=== PATIENT | male | born 1955 | race African-American/Black ===

== ENCOUNTER 2017-05-07 10:41 | Inpatient (IN) | payer OTHER ==
[~2017-05-07] VITALS: Ht 170.2 cm; Wt 72.4 kg
[2017-05-07] VITALS (9 sets, daily range): BP systolic 169–194; BP diastolic 84–91; PULSE 72–85; RESP 16–18; TEMP 97.9–98.1; O2SAT 93–97
[~2017-05-07 10:41] MED LIST: CLON.2 PO; NORV2.5T11 PO
[2017-05-07] MEDS ORDERED: SODIUM CHLOR 0.9% 1000 ML INJ 1,000 ML IV SCH (11:25)
[2017-05-07] MEDS ORDERED: MORPHINE SULFATE 4 MG/ML INJ IV PUSH ONE ×2 (11:30→14:15)
[2017-05-07] MEDS ORDERED: ONDANSETRON HCL 4 MG/2 ML VIAL IVP ONE (11:30)
[2017-05-07 11:45] LABS: AUTOMATED NEUTROPHIL # 4.7 TH/MM3 (1.8-7.7); BASOPHIL # 0.1 TH/MM3 (0-0.2); BASOPHIL % 1.3 % (0.0-2.0); EOSINOPHIL # 0.2 TH/MM3 (0-0.4); EOSINOPHIL % 1.9 % (0.0-4.0); HEMATOCRIT 28.7 % (39.0-51.0); HEMO FLAGS DIFF FINAL; LYMPH % 24.6 % (9.0-44.0); LYMPHOCYTE # 2.1 TH/MM3 (1.0-4.8); MEAN CELL VOLUME 81.8 FL (80.0-100.0); MEAN CORPUSCULAR HEMOGLOBIN 26.1 PG (27.0-34.0); MEAN CORPUSCULAR HGB CONC 31.9 % (32.0-36.0); MONO % 16.2 % (0.0-8.0); PLATELET COUNT 280 TH/MM3 (150-450); RED BLOOD COUNT 3.51 MIL/MM3 (4.50-5.90); RED CELL DISTRIBUTION WIDTH 18.2 % (11.6-17.2); WHITE BLOOD COUNT 8.4 TH/MM3 (4.0-11.0)
--- NOTE | 2017-05-07 11:55 | PD ---
HPI Chief Complaint: Abdominal Pain Time Seen by Provider: 11:51 Travel History International Travel<30 days: No Contact w/Intl Traveler<30days: No Traveled to known affect area: No History of Present Illness HPI 61-year-old male that presents to the ED for evaluation of epigastric abdominal pain. Per patient she's had this since this morning around 4:00. Per patient the pain is severe. The patient is 8 out of 10. Per patient radiates to the back. Per patient she's had this before when he had pancreatitis in the past. He states that his gallbladder was removed. He denies any chest pain or shortness of breath. He states that he started out 3 times. No blood. No bowel movement issues. No urinary issues. No trauma. He denies eating anything that could've caused this. Allergies Dilaudid and Reglan. No rashes. No fevers chills or sweats. PFSH Past Medical History Hx Anticoagulant Therapy: Yes Heart Rhythm Problems: Yes Cardiac Catheterization: Yes (2014- ) Cardiovascular Problems: Yes High Cholesterol: Yes Coronary Artery Disease: Yes Diabetes: No Diminished Hearing: No Gastrointestinal Disorders: Yes Hypertension: Yes Respiratory: Yes (COPD) Immunizations Current: No Myocardial Infarction: Yes Pancreatitis: Yes Past Surgical History Abdominal Surgery: Yes (esophageal banding) Appendectomy: Yes Cholecystectomy: Yes Coronary Artery Bypass Graft: Yes (2007 5 vessels ) Other Surgery: No Social History Alcohol Use: Yes (hx of abuse, last drink "15 days ago") Tobacco Use: Yes (/2 PPD) Substance Use: Yes (hx cocaine use, last used a month ago) Allergies-Medications (Allergen,Severity, Reaction): Coded Allergies: Dilaudid (Verified Allergy, Intermediate, Hives, 08/22/15) Reglan (Verified Allergy, Intermediate, Hives, 08/22/15) Reported Meds & Prescriptions Reported Meds & Active Scripts Active Reported Norvasc (Amlodipine Besylate) 2.5 Mg Tab 2.5 Mg PO DAILY Catapres 0.2 mg (Clonidine HCl) 0.2 Mg Tab 1 Tab PO BID Review of Systems Except as stated in HPI: all other systems reviewed are Neg Physical Exam Narrative GENERAL: SKIN: Warm and dry. HEAD: Atraumatic. Normocephalic. EYES: Pupils equal and round. No scleral icterus. No injection or drainage. ENT: No nasal bleeding or discharge. Mucous membranes pink and moist. Tongue is midline. No uvula deviation. NECK: Trachea midline. No JVD. CARDIOVASCULAR: Regular rate and rhythm. No murmurs, S3, S4. RESPIRATORY: No accessory muscle use. Clear to auscultation. Breath sounds equal bilaterally. GASTROINTESTINAL: Abdomen soft, very tender to touch in the epigastric area., nondistended. Hepatic and splenic margins not palpable. MUSCULOSKELETAL: Extremities without clubbing, cyanosis, or edema. No obvious deformities. Full range of motion of the upper and lower extremities bilaterally. 2+ pulses bilaterally. NEUROLOGICAL: Awake and alert. No obvious cranial nerve deficits. Motor grossly within normal limits. Five out of 5 muscle strength in the arms and legs. Normal speech. PSYCHIATRIC: Appropriate mood and affect; insight and judgment normal. Data Data Last Documented VS Vital Signs Date Time Temp Pulse Resp B/P Pulse Ox O2 Delivery O2 Flow Rate FiO2 05/07/17 14:22 84 18 169/90 97 Room Air 05/07/17 10:42 98.0 Orders Complete Blood Count With Diff (05/07/17 11:25) Comprehensive Metabolic Panel (05/07/17 11:25) Prothrombin Time / Inr (Pt) (05/07/17 11:25) Act Partial Throm Time (Ptt) (05/07/17 11:25) Lipase (05/07/17 11:25) Urinalysis - C+S If Indicated (05/07/17 11:25) Magnesium (Mg) (05/07/17 11:25) Iv Access Insert/Monitor (05/07/17 11:25) Ecg Monitoring (05/07/17 11:25) Oximetry (05/07/17 11:25) Lactic Acid (05/07/17 11:25) Morphine Inj (Morphine Inj) (05/07/17 11:30) Ondansetron Inj (Zofran Inj) (05/07/17 11:30) Sodium Chlor 0.9% 1000 Ml Inj (Ns 1000 M (05/07/17 11:25) Electrocardiogram (05/07/17 11:55) Troponin I (05/07/17 11:55) Chest, Single Ap (05/07/17 11:55) Ct Abd/Pel W Iv Contrast(Rout) (05/07/17 ) Iohexol 350 Inj (Omnipaque 350 Inj) (05/07/17 13:42) Morphine Inj (Morphine Inj) (05/07/17 14:15) Admit Order (Ed Use Only) (05/07/17 14:46) Labs Laboratory Tests Test 05/07/17 05/07/17 11:32 11:45 White Blood Count 8.4 TH/MM3 Red Blood Count 3.51 MIL/MM3 Hemoglobin 9.2 GM/DL Hematocrit 28.7 % Mean Corpuscular Volume 81.8 FL Mean Corpuscular Hemoglobin 26.1 PG Mean Corpuscular Hemoglobin 31.9 % Concent Red Cell Distribution Width 18.2 % Platelet Count 280 TH/MM3 Mean Platelet Volume 9.6 FL Neutrophils (%) (Auto) 56.0 % Lymphocytes (%) (Auto) 24.6 % Monocytes (%) (Auto) 16.2 % Eosinophils (%) (Auto) 1.9 % Basophils (%) (Auto) 1.3 % Neutrophils # (Auto) 4.7 TH/MM3 Lymphocytes # (Auto) 2.1 TH/MM3 Monocytes # (Auto) 1.3 TH/MM3 Eosinophils # (Auto) 0.2 TH/MM3 Basophils # (Auto) 0.1 TH/MM3 CBC Comment DIFF FINAL Differential Comment Prothrombin Time 11.0 SEC Prothromb Time International 1.0 RATIO Ratio Activated Partial 22.2 SEC Thromboplast Time Urine Color YELLOW Urine Turbidity CLEAR Urine pH 5.5 Urine Specific [place] 1.013 Urine Protein TRACE mg/dL Urine Glucose (UA) NEG mg/dL Urine Ketones NEG mg/dL Urine Occult Blood NEG Urine Nitrite NEG Urine Bilirubin NEG Urine Urobilinogen LESS THAN 2.0 MG/DL Urine Leukocyte Esterase NEG Urine RBC LESS THAN 1 /hpf Urine WBC 1 /hpf Urine Mucus FEW /lpf Microscopic Urinalysis Comment CULT NOT INDICATED Sodium Level 140 MEQ/L Potassium Level 4.2 MEQ/L Chloride Level 110 MEQ/L Carbon Dioxide Level 21.5 MEQ/L Anion Gap 9 MEQ/L Blood Urea Nitrogen 6 MG/DL Creatinine 1.01 MG/DL Estimat Glomerular Filtration 91 ML/MIN Rate Random Glucose 83 MG/DL Calcium Level 8.5 MG/DL Magnesium Level 1.6 MG/DL Total Bilirubin 0.3 MG/DL Aspartate Amino Transf 93 U/L (AST/SGOT) Alanine Aminotransferase 72 U/L (ALT/SGPT) Alkaline Phosphatase 137 U/L Troponin I LESS THAN 0.02 NG/ML Total Protein 7.5 GM/DL Albumin 2.9 GM/DL Lipase 26 U/L Lactic Acid Level 1.3 mmol/L MDM Medical Decision Making Medical Screen Exam Complete: Yes Emergency Medical Condition: Yes Medical Record Reviewed: Yes Interpretation(s) CBC & BMP Diagram 05/07/17 11:32 LFTS slightly elevated AST at 90 Lipase low UA negative coags WNL EKG shows sinus rhythm with no sign of acute ischemia or read by me and attending. troponin negative Last Impressions Abdomen/Pelvis CT 05/07/17 0000 Signed Impressions: Service Date/Time: Sunday, May 07, 2017 13:41 - CONCLUSION: 1. Interval development of mild congestive failure. 2. Interval development of trace ascites with marked bowel wall thickening second portion the duodenum. 3. Chronic pancreatitis is evident. Acute pancreatitis cannot be excluded. 4. Moderate vascular calcifications are evident. 1. Carlos Kat MD FACR Differential Diagnosis Hepatitis versus pancreatitis versus gastritis versus gastroenteritis versus obstruction versus less likely coronary artery disease Narrative Course 61-year-old male that presents to the ED for evaluation of epigastric abdominal pain. Patient was properly examined and was found to have signs and symptoms more consistent with gastric pain and cardiac. Patient does have a history of cardiac disease and cannot completely rule out cardiac disease. Will do EKG and his troponin for this. We'll also do blood work and imaging for possible abdominal etiology. Patient was given IV pain medications and fluids. Labs and imaging showed what appears to be chronic on acute pancreatitis versus acute pancreatitis. Patient's lipase is actually low not high but he complains of the same pain. Patient does have ascites and CHF. Patient still complains of pain and cannot keep anything down.. My attending Dr. Resendez evaluated the patient with me and recommends admission as he cannot keep anything down even after medications given. PO challenge failed. HEPAS was paged. Dr. Lin agrees to admission for intractable abdominal pain and nausea. Procedures EKG Prior to Arrival: No Diagnosis Primary Impression: Intractable abdominal pain Additional Impression: Intractable vomiting with nausea Qualified Code: R11.2 - Intractable vomiting with nausea, unspecified vomiting type Admitting Information Admitting Physician Requests: Observation Patient Instructions: General Instructions, Narcotic given in the ED Rony Flynn May 07, 2017 11:54
[2017-05-07 12:13] LABS: BLOOD, URINE NEG (NEG); COMMENT (UR) CULT NOT INDICATED; CULTURE IF INDICATED CULT NOT INDICATED; GLUCOSE,URINE NEG (NEG); KETONE, URINE NEG (NEG); MUCUS URINE FEW /lpf (OCC); NITRITE,URINE NEG (NEG); PH, URINE 5.5 (5.0-8.5); URINE COLOR YELLOW (YELLW/STRAW)
[2017-05-07 12:17] LABS: APTT (PATIENT) 22.2 SEC (24.3-30.1)
[2017-05-07 12:21] LABS: ALKALINE PHOSPHATASE 137 U/L (45-117); TOTAL BILIRUBIN ADULT 0.3 MG/DL (0.2-1.0)
[2017-05-07 12:44] LABS: ALT (GPT) 72 U/L (12-78); ANION GAP 9 MEQ/L (5-15); BICARBONATE 21.5 MEQ/L (21.0-32.0); BLOOD UREA NITROGEN 6 MG/DL (7-18); CHLORIDE 110 MEQ/L (98-107); GLOMERULAR FILTRATION RATE 91 ML/MIN (>89); SODIUM (NA) 140 MEQ/L (136-145)
[2017-05-07 12:46] LABS: AST (GOT) 93 U/L (15-37); MAGNESIUM 1.6 MG/DL (1.5-2.5); POTASSIUM 4.2 MEQ/L (3.5-5.1)
--- NOTE | 2017-05-07 13:37 | RADRPT ---
EXAM DATE/TIME: 05/07/2017 12:04 [facility] COMPARISON: CHEST SINGLE AP, July 28, 2015, 14:55. INDICATIONS : Chest pain. MEDICAL HISTORY : Hypertension. Chronic obstructive pulmonary disease. Congestive heart failure. SURGICAL HISTORY : CABG. Appendectomy. Cholecystectomy. Esophageal banding ENCOUNTER: Initial ACUITY: 3 days PAIN SCORE: 4/10 LOCATION: Left Chest FINDINGS: The patient is status post sternotomy. The heart size upper limits of normal. The lungs demonstrate mild prominence of the interstitium diffusely. A focal consolidation is not clearly seen. No effus ion is seen. CONCLUSION: Prominence in the interstitium throughout which may represent some diffuse processes such as pulmonar y venous hypertension or mild underlying interstitial disease. This finding does appear new when com pared to the most recent prior chest from 07/28/2015. Nabeel Liang MD on May 07, 2017 at 13:26 Board Certified Radiologist. This report was verified electronically.
[2017-05-07] MEDS ORDERED: IOHEXOL 350 MG/ML 10 ML VIAL (for RAD DIAG) IV ONE (13:42)
--- NOTE | 2017-05-07 14:05 | RADRPT ---
EXAM DATE/TIME: 05/07/2017 13:41 [facility] COMPARISON: CT ABDOMEN & PELVIS W CONTRAST, July 28, 2015, 16:30. INDICATIONS : Abdomen pain with nausea and vomiting. IV CONTRAST: 95 cc Omnipaque 350 (iohexol) IV ORAL CONTRAST: No oral contrast ingested. RADIATION DOSE: 4.26 CTDIvol (mGy) MEDICAL HISTORY : Myocardial infarction. Cardiovascular disease Hypertension.pancreatitis SURGICAL HISTORY : CABG ENCOUNTER: Initial ACUITY: 1 day PAIN SCALE: 3/10 LOCATION: upper quadrant radiating to his back. TECHNIQUE: Volumetric scanning of the abdomen and pelvis was performed. Using automated exposure control and adjustment of the mA and/or kV according to patient size, radiation dose was kept as low as reasonably achievable to obtain optimal diagnostic quality images. FINDINGS: There is compensated cardiomegaly mild congestive failure and small bilateral pleural effusions. The liver is free of focal defects. Trace ascites is evident. There is bowel wall thickening around the second portion of the duodenum. The pancreatic duct is dilated suggesting chronic pancreatitis. Acute pancreatitis cannot be excluded. The adrenals and kidneys are unremarkable. Moderate stool is seen throughout the colon. There is no free air. In the pelvis prostate is prominent. There is no significant ascites. Moderate vascular calcifications are evident. Review of bone windows reveals degenerative changes in the lumbar spine. CONCLUSION: 1. Interval development of mild congestive failure. 2. Interval development of trace ascites with marked bowel wall thickening second portion the duodenu m. 3. Chronic pancreatitis is evident. Acute pancreatitis cannot be excluded. 4. Moderate vascular calcifications are evident. 1. Carlos Kat MD FACR on May 07, 2017 at 13:59 Board Certified Radiologist. This report was verified electronically.
[2017-05-07] MEDS ORDERED: NALOXONE HCL 0.4 MG/ML AMP IV PRN (15:00)
[2017-05-07] MEDS ORDERED: MAGNESIUM HYDROXIDE SUSP 30 ML CUP PO PRN (15:00)
[2017-05-07] MEDS ORDERED: SODIUM CHLORIDE 0.9% FLUSH 10 ML FLUSH IV FLUSH PRN (15:00)
[2017-05-07] MEDS ORDERED: MORPHINE SULFATE 4 MG/ML INJ IV PRN (15:00)
[2017-05-07] MEDS ORDERED: ONDANSETRON HCL 4 MG/2 ML VIAL IVP PRN (15:00)
[2017-05-07] MEDS ORDERED: LACTULOSE SYRUP 20 GM/30 ML CUP PO PRN (15:00)
[2017-05-07] MEDS ORDERED: ACETAMINOPHEN 325 MG TAB PO PRN (15:00)
[2017-05-07] MEDS: SODIUM CHLOR 0.9% 1000 ML INJ 1,000 ML IV SCH ×2 (15:17→18:11)
--- NOTE | 2017-05-07 16:00 | HHI.HP ---
[facility] Ad[facility] Diagnosis intractable abdominal pain with vomiting Diagnoses: Chief Complaint: Abdominal pain Travel History International Travel<30 Days: No Contact w/Intl Traveler <30 Da: No Traveled to Known Affected Are: No History of Present Illness This is a 61-year-old male with a history of alcohol pancreatitis, esophageal varices, CAD status post 5 vessel CABG, hyperlipidemia, congestive heart failure , hypertension, COPD and gout. He presents to the ED for evaluation of epigastric abdominal pain. 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 He states that his gallbladder was removed. He denies any chest pain, shortness of breath, fever, chills, cough, UTI symptoms, constipation and diarrhea. He also vomited 3 times prior to admission. No hematemesis. He received morphine 4 mg IV 2 doses and still complains of significant pain scale of 7 out of 10. He has been advised hospitalization for intractable pain. Patient reports of recent bout of gout and took naproxen about 2 weeks ago. He also had a follow-up EGD about a month ago when he had hematemesis. He was told there was no varices. All other systems reviewed negative Review of Systems Except as stated in HPI: all other systems reviewed are Neg Past Family Social History Past Medical History As previously mentioned Past Surgical History As previously mentioned. 6 cardiac catheterization in 2015 showed patent grafts. Esophageal banding, appendectomy, cholecystectomy Reported Medications Lisinopril, Coreg, hydralazine, folic acid, vitamin B-1, aspirin and naproxen Allergies: Coded Allergies: Dilaudid (Verified Allergy, Intermediate, Hives, 08/22/15) Reglan (Verified Allergy, Intermediate, Hives, 08/22/15) Family History Lung cancer, CVA Social History Quit drinking 15 days ago. Has cut back on his smoking down to half a pack per day. Last cocaine use a month ago Physical Exam Vital Signs Vital Signs Date Time Temp Pulse Resp B/P Pulse Ox O2 Delivery O2 Flow Rate FiO2 05/07/17 14:56 96 21 05/07/17 14:22 84 18 169/90 97 Room Air 05/07/17 12:14 85 18 174/84 95 Room Air 05/07/17 12:13 18 95 Room Air 05/07/17 11:11 18 05/07/17 10:42 98.0 76 16 178/91 97 Physical Exam GENERAL: This is a well-nourished, well-developed patient, in no apparent distress. SKIN: No rashes, ecchymoses or lesions. Cool and dry. HEAD: Atraumatic. Normocephalic. No temporal or scalp tenderness. EYES: Pupils equal round and reactive. Extraocular motions intact. No scleral icterus. No injection or drainage. ENT: Nose without bleeding, purulent drainage or septal hematoma. Throat without erythema, tonsillar hypertrophy or exudate. Uvula midline. Airway patent. NECK: Trachea midline. No JVD or lymphadenopathy. Supple, nontender, no meningeal signs. CARDIOVASCULAR: Regular rate and rhythm without murmurs, gallops, or rubs. RESPIRATORY: Clear to auscultation. Breath sounds equal bilaterally. No wheezes , rales, or rhonchi. GASTROINTESTINAL: Abdomen soft, tender epigastric area, nondistended. No guarding. MUSCULOSKELETAL: Extremities without clubbing, cyanosis, or edema. No joint tenderness, effusion, or edema noted. No calf tenderness. Negative Homans sign bilaterally. NEUROLOGICAL: Awake and alert. Cranial nerves II through XII intact. Motor and sensory grossly within normal limits. Five out of 5 muscle strength in all muscle groups. Normal speech. Laboratory Laboratory Tests Test 05/07/17 05/07/17 11:32 11:45 White Blood Count 8.4 Red Blood Count 3.51 Hemoglobin 9.2 Hematocrit 28.7 Mean Corpuscular Volume 81.8 Mean Corpuscular Hemoglobin 26.1 Mean Corpuscular Hemoglobin 31.9 Concent Red Cell Distribution Width 18.2 Platelet Count 280 Mean Platelet Volume 9.6 Neutrophils (%) (Auto) 56.0 Lymphocytes (%) (Auto) 24.6 Monocytes (%) (Auto) 16.2 Eosinophils (%) (Auto) 1.9 Basophils (%) (Auto) 1.3 Neutrophils # (Auto) 4.7 Lymphocytes # (Auto) 2.1 Monocytes # (Auto) 1.3 Eosinophils # (Auto) 0.2 Basophils # (Auto) 0.1 CBC Comment DIFF FINAL Differential Comment Prothrombin Time 11.0 Prothromb Time International 1.0 Ratio Activated Partial 22.2 Thromboplast Time Urine Color YELLOW Urine Turbidity CLEAR Urine pH 5.5 Urine Specific [place] 1.013 Urine Protein TRACE Urine Glucose (UA) NEG Urine Ketones NEG Urine Occult Blood NEG Urine Nitrite NEG Urine Bilirubin NEG Urine Urobilinogen LESS THAN 2.0 Urine Leukocyte Esterase NEG Urine RBC LESS THAN 1 Urine WBC 1 Urine Mucus FEW Microscopic Urinalysis Comment CULT NOT INDICATED Sodium Level 140 Potassium Level 4.2 Chloride Level 110 Carbon Dioxide Level 21.5 Anion Gap 9 Blood Urea Nitrogen 6 Creatinine 1.01 Estimat Glomerular Filtration 91 Rate Random Glucose 83 Calcium Level 8.5 Magnesium Level 1.6 Total Bilirubin 0.3 Aspartate Amino Transf 93 (AST/SGOT) Alanine Aminotransferase 72 (ALT/SGPT) Alkaline Phosphatase 137 Troponin I LESS THAN 0.02 Total Protein 7.5 Albumin 2.9 Lipase 26 Lactic Acid Level 1.3 Result Diagram: 05/07/17 1132 05/07/17 1132 Imaging EKG tracing interpreted by me with sinus rhythm. LVH by voltage criteria Last 24 hours Impressions Abdomen/Pelvis CT 05/07/17 0000 Signed Impressions: Service Date/Time: Sunday, May 07, 2017 13:41 - CONCLUSION: 1. Interval development of mild congestive failure. 2. Interval development of trace ascites with marked bowel wall thickening second portion the duodenum. 3. Chronic pancreatitis is evident. Acute pancreatitis cannot be excluded. 4. Moderate vascular calcifications are evident. 1. Carlos Kat MD FACR Assessment and Plan Problem List: (1) Intractable abdominal pain ICD Code: R10.9 Status: Acute Assessment and Plan This is a 61-year-old male who presents to the ED for evaluation of epigastric abdominal pain. 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 He states that his gallbladder was removed. He denies any chest pain, shortness of breath, fever, chills, cough, UTI symptoms, constipation and diarrhea. He also vomited 3 times prior to admission. No hematemesis. He received morphine 4 mg IV 2 doses and still complains of significant pain scale of 7 out of 10. Patient reports of recent bout of gout and took naproxen about 2 weeks ago. He also had a follow-up EGD about a month ago when he had hematemesis. He was told there was no varices. Intractable abdominal pain with nausea and vomiting. CT shows trace ascites with marked bowel wall thickening second portion the duodenum, chronic pancreatitis, acute pancreatitis cannot be excluded and vascular calcifications are evident. Lipase within normal limits. This could be due to tinnitus versus possible pancreatitis. Patient will be hospitalized for further evaluation and treatment. Start clear liquid diet, gentle IV hydration, pain management with IV morphine and GI prophylaxis with PPI. Hold aspirin and NSAIDs for now. Obtain records from [place] regarding recent EGD. CHF on imaging study. Patient denies shortness of breath with no clinical findings consistent with heart failure. He does have history of heart failure. Monitor for fluid overload while on IV hydration Uncontrolled hypertension. Restart home medications with as needed Vasotec and by mouth clonidine. Chronic anemia. Hemoglobin slightly lower than previous. No gross bleeding. Repeat CBC in the morning. Chronic elevated AST with history of alcohol use. Monitor Chronic medical conditions of esophageal varices, CAD status post 5 vessel CABG , hyperlipidemia, COPD and gout. Continue outpatient medications as appropriate when confirmed. DVT prophylaxis with SCD and early ambulation. Pharmacological prophylaxis if stable hemoglobin Carter Lin MD May 07, 2017 16:00
[2017-05-07] MEDS: PANTOPRAZOLE SODIUM 40 MG VIAL IV PUSH SCH (18:01)
[2017-05-07] MEDS: MORPHINE SULFATE 4 MG/ML INJ IV PRN ×2 (18:10→21:21)
[2017-05-07] MEDS: ENALAPRILAT 1.25 MG/ML VIAL IV PRN (20:33)
[2017-05-07] MEDS: DOCUSATE SODIUM 50 MG/SENNA 8.6 MG TAB PO SCH (20:33)
[2017-05-07] MEDS: SODIUM CHLORIDE 0.9% FLUSH 10 ML FLUSH IV FLUSH SCH (20:33)
[2017-05-08] VITALS (10 sets, daily range): BP systolic 153–198; BP diastolic 74–95; PULSE 62–74; RESP 16–22; TEMP 97.8–99.1; O2SAT 88–94
[2017-05-08] MEDS: MORPHINE SULFATE 4 MG/ML INJ IV PRN ×4 (02:25→21:08)
[2017-05-08] MEDS: ENALAPRILAT 1.25 MG/ML VIAL IV PRN (04:18)
[2017-05-08] MEDS: cloNIDine HCL 0.1 MG TAB PO PRN ×2 (04:18→17:07)
[2017-05-08] MEDS: DOCUSATE SODIUM 50 MG/SENNA 8.6 MG TAB PO SCH ×3 (08:28→21:06)
[2017-05-08] MEDS: SODIUM CHLORIDE 0.9% FLUSH 10 ML FLUSH IV FLUSH SCH ×2 (08:29→21:07)
--- NOTE | 2017-05-08 13:51 | HHI.PR ---
Subjective Remarks Still with nausea no vomiting. He still complaining of pain in his belly, epigastric area, nonradiating. Pain medications helps some for pain. No fever or chills. Says he did not have a bowel movement yet. Objective Vitals Vital Signs Date Time Temp Pulse Resp B/P Pulse Ox O2 Delivery O2 Flow Rate FiO2 05/08/17 12:44 74 05/08/17 09:44 19 05/08/17 08:17 99.1 62 18 170/80 92 05/08/17 05:58 166/84 05/08/17 04:12 98.2 72 16 198/92 93 05/08/17 00:16 97.8 73 16 176/85 92 05/07/17 21:43 74 05/07/17 20:30 95 05/07/17 19:16 98.1 72 18 194/91 96 05/07/17 16:00 97.9 77 18 187/91 93 05/07/17 14:56 96 21 05/07/17 14:22 84 18 169/90 97 Room Air I/O 05/07/17 05/07/17 05/07/17 05/08/17 05/08/17 05/08/17 07:00 15:00 23:00 07:00 15:00 23:00 Intake Total 350 ml 1050 ml Balance 350 ml 1050 ml Intake Oral 50 ml 1050 ml IV Total 300 ml Result Diagram: 05/07/17 1132 05/07/17 1132 Imaging Last Impressions Chest X-Ray 05/07/17 1155 Signed Impressions: Service Date/Time: Sunday, May 07, 2017 12:04 - CONCLUSION: Prominence in the interstitium throughout which may represent some diffuse processes such as pulmonary venous hypertension or mild underlying interstitial disease. This finding does appear new when compared to the most recent prior chest from 07/28/2015. Nabeel Liang MD Abdomen/Pelvis CT 05/07/17 0000 Signed Impressions: Service Date/Time: Sunday, May 07, 2017 13:41 - CONCLUSION: 1. Interval development of mild congestive failure. 2. Interval development of trace ascites with marked bowel wall thickening second portion the duodenum. 3. Chronic pancreatitis is evident. Acute pancreatitis cannot be excluded. 4. Moderate vascular calcifications are evident. 1. Carlos Kat MD FACR Objective Remarks GENERAL: This is a well-nourished, well-developed patient, in no apparent distress. SKIN: No rashes, ecchymoses or lesions. Cool and dry. HEAD: Atraumatic. Normocephalic. No temporal or scalp tenderness. EYES: Pupils equal round and reactive. Extraocular motions intact. No scleral icterus. No injection or drainage. ENT: Nose without bleeding, purulent drainage or septal hematoma. Throat without erythema, tonsillar hypertrophy or exudate. Uvula midline. Airway patent. NECK: Trachea midline. No JVD or lymphadenopathy. Supple, nontender, no meningeal signs. CARDIOVASCULAR: Regular rate and rhythm without murmurs, gallops, or rubs. RESPIRATORY: Clear to auscultation. Breath sounds equal bilaterally. No wheezes , rales, or rhonchi. GASTROINTESTINAL: Abdomen soft, tender epigastric area, nondistended. No guarding. MUSCULOSKELETAL: Extremities without clubbing, cyanosis, or edema. No joint tenderness, effusion, or edema noted. No calf tenderness. Negative Homans sign bilaterally. NEUROLOGICAL: Awake and alert. Cranial nerves II through XII intact. Motor and sensory grossly within normal limits. Five out of 5 muscle strength in all muscle groups. Normal speech. A/P Problem List: (1) Intractable abdominal pain ICD Code: R10.9 Status: Acute Assessment and Plan This is a 61-year-old male who presents to the ED for evaluation of epigastric abdominal pain. He woke up pnp around 4:00 complaining of severe sharp epigastric pain radiating straight to his back similar to his symptoms when he had pancreatitis. He states that his gallbladder was removed. He denies any chest pain, shortness of breath, fever, chills, cough, UTI symptoms, constipation and diarrhea. He also vomited 3 times prior to admission. No hematemesis. He received morphine 4 mg IV 2 doses and still complains of significant pain scale of 7 out of 10. Patient reports of recent bout of gout and took naproxen about 2 weeks ago. He also had a follow-up EGD about a month ago when he had hematemesis. He was told there was no varices. Intractable abdominal pain with nausea and vomiting. CT shows trace ascites with marked bowel wall thickening second portion the duodenum, chronic pancreatitis, acute pancreatitis cannot be excluded and vascular calcifications are evident. Lipase within normal limits. This could be due to tinnitus versus possible pancreatitis. Patient will be hospitalized for further evaluation and treatment. Start clear liquid diet, gentle IV hydration, pain management with IV morphine and GI prophylaxis with PPI. Hold aspirin and NSAIDs for now. Obtain records from [place] regarding recent EGD. Consult GI specialist. CHF on imaging study. Patient denies shortness of breath with no clinical findings consistent with heart failure. He does have history of heart failure. Monitor for fluid overload while on IV hydration Uncontrolled hypertension. Restart home medications with as needed Vasotec and by mouth clonidine. Chronic anemia. Hemoglobin slightly lower than previous. No gross bleeding. Repeat CBC in the morning. Chronic elevated AST with history of alcohol use. Monitor Chronic medical conditions of esophageal varices, CAD status post 5 vessel CABG , hyperlipidemia, COPD and gout. Continue outpatient medications as appropriate when confirmed. DVT prophylaxis with SCD and early ambulation. Pharmacological prophylaxis if stable hemoglobin DC plan pending improvement Mary Pacheco MD May 08, 2017 13:51
--- NOTE | 2017-05-08 15:08 | PD.CONS ---
HPI History of Present Illness This is a 61 year old male w/ hx ETOH pancreatitis, pseudocysts, esophageal varices, CAD s/p CABG, CHF, gout, COPD who presented to ER yesterday for vomiting, "gut pain." Onset 1 day ago, epigastric pain, constant sharp and stabbing, radiating to back, n/v. NO blood in vomit. No aggravating or relieving factors. He had pain like this before when he had pancreatitis attack a year ago and says he has pancreatitis on and off for years. NO diarrhea. He hasn't had a drink in 15 days, prior was heavy daily drinker- 6 pack. Says he's trying to quit. No gall bladder. HE says he had pancreatic pseudocyst drained in the late s, cannot recall further details. He had EGD 1 month ago, doesn't know findings, he had it done b/c he was having hematemesis , coffee ground appearance, none since. No blood in stool, tarry stool. Last colonoscopy 25 years ago and says he has one scheduled 2 weeks from now / [facility]. Currently his pain is mildly improved since yesterday and he is a little nauseous but no vomiting today. He is able to tolerate water, few spoonfuls broth, ice. Temp this morning was 99. PFSH Past Medical History As previously mentioned Past Surgical History As previously mentioned. 6 cardiac catheterization in 2014 showed patent grafts. Esophageal banding, appendectomy, cholecystectomy Coded Allergies: Dilaudid (Verified Allergy, Intermediate, Hives, 08/22/15) Reglan (Verified Allergy, Intermediate, Hives, 08/22/15) Family History Lung cancer, CVA Social History Quit drinking 15 days ago. 7-8 cigarettes daily Last cocaine use a month ago Review of Systems Constitutional: DENIES: Fever Eyes: DENIES: Blurred vision Ears, nose, mouth, throat: DENIES: Hearing loss Respiratory: DENIES: Hemoptysis Cardiovascular: DENIES: Chest pain Gastrointestinal: COMPLAINS OF: Abdominal pain, Nausea, Vomiting, DENIES: Black stools, Bloody stools, Constipation, Diarrhea, Hematemesis Genitourinary: DENIES: Hematuria Musculoskeletal: DENIES: Muscle aches Integumentary: DENIES: Abnormal pigmentation Hematologic/lymphatic: DENIES: Bruising Neurologic: DENIES: Abnormal gait Psychiatric: DENIES: Confusion GI Exam Vitals I&O Vital Signs Date Time Temp Pulse Resp B/P Pulse Ox O2 Delivery O2 Flow Rate FiO2 05/08/17 12:44 74 05/08/17 09:44 19 05/08/17 08:17 99.1 62 18 170/80 92 05/08/17 05:58 166/84 05/08/17 04:12 98.2 72 16 198/92 93 05/08/17 00:16 97.8 73 16 176/85 92 05/07/17 21:43 74 05/07/17 20:30 95 05/07/17 19:16 98.1 72 18 194/91 96 05/07/17 16:00 97.9 77 18 187/91 93 I/O 05/07/17 05/07/17 05/07/17 05/08/17 05/08/17 05/08/17 07:00 15:00 23:00 07:00 15:00 23:00 Intake Total 350 ml 1050 ml Balance 350 ml 1050 ml Intake Oral 50 ml 1050 ml IV Total 300 ml Imaging Last Impressions Chest X-Ray 05/07/17 1155 Signed Impressions: Service Date/Time: Sunday, May 07, 2017 12:04 - CONCLUSION: Prominence in the interstitium throughout which may represent some diffuse processes such as pulmonary venous hypertension or mild underlying interstitial disease. This finding does appear new when compared to the most recent prior chest from 07/28/2015. Nabeel Liang MD Abdomen/Pelvis CT 05/07/17 0000 Signed Impressions: Service Date/Time: Sunday, May 07, 2017 13:41 - CONCLUSION: 1. Interval development of mild congestive failure. 2. Interval development of trace ascites with marked bowel wall thickening second portion the duodenum. 3. Chronic pancreatitis is evident. Acute pancreatitis cannot be excluded. 4. Moderate vascular calcifications are evident. 1. Carlos Kat MD FACR Physical Examination HEENT: PERRL; normocephalic; atraumatic; no jaundice. CHEST: wheezes CARDIAC: RRR ABDOMEN: Soft, nondistended, epigastric TTP; bowel sounds are present in all four quadrants. EXTREMITIES: No clubbing, cyanosis, or edema. SKIN: Normal; no rash; no jaundice. 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 Assessment and Plan Plan ASSESSMENT - epigastric pain - onset 05/07. hx chronic pancreatitis, ETOH abuse. Lipase WNL. Last [facility] 1 m [facility], cannot recall findings. CT 05-07-17-->1. Interval development of mild congestive failure. 2. Interval development of trace ascites with marked bowel wall thickening second portion the duodenum. 3. Chronic pancreatitis is evident. Acute pancreatitis cannot be excluded. 4. Moderate vascular calcifications are evident. - n/v - no vomiting today. unclear etiology. no blood. PLAN - EGD in am - obtain consents - NPO after midnight - clears - further recommendations to follow This pt seen by myself and DR Fonseca and this note is written on his behalf. Dalia Parra May 08, 2017 15:08
[2017-05-08 15:19] LABS: AUTOMATED NEUTROPHIL # 3.4 TH/MM3 (1.8-7.7); BASOPHIL # 0.1 TH/MM3 (0-0.2); BASOPHIL % 0.8 % (0.0-2.0); EOSINOPHIL # 0.2 TH/MM3 (0-0.4); EOSINOPHIL % 2.5 % (0.0-4.0); HEMATOCRIT 26.3 % (39.0-51.0); HEMO FLAGS DIFF FINAL; LYMPH % 30.8 % (9.0-44.0); LYMPHOCYTE # 2.2 TH/MM3 (1.0-4.8); MEAN CELL VOLUME 82.3 FL (80.0-100.0); MEAN CORPUSCULAR HEMOGLOBIN 25.5 PG (27.0-34.0); MEAN CORPUSCULAR HGB CONC 30.9 % (32.0-36.0); MONO % 18.9 % (0.0-8.0); PLATELET COUNT 235 TH/MM3 (150-450); RED BLOOD COUNT 3.19 MIL/MM3 (4.50-5.90); RED CELL DISTRIBUTION WIDTH 17.8 % (11.6-17.2); WHITE BLOOD COUNT 7.2 TH/MM3 (4.0-11.0)
[2017-05-08 15:35] LABS: ALT (GPT) 57 U/L (12-78); ANION GAP 6 MEQ/L (5-15); AST (GOT) 53 U/L (15-37); BICARBONATE 26.5 MEQ/L (21.0-32.0); BLOOD UREA NITROGEN 6 MG/DL (7-18); CHLORIDE 110 MEQ/L (98-107); GLOMERULAR FILTRATION RATE 100 ML/MIN (>89); POTASSIUM 4.2 MEQ/L (3.5-5.1); SODIUM (NA) 142 MEQ/L (136-145)
[2017-05-08 15:38] LABS: ALKALINE PHOSPHATASE 116 U/L (45-117); TOTAL BILIRUBIN ADULT 0.2 MG/DL (0.2-1.0)
[2017-05-08] MEDS: PANTOPRAZOLE SODIUM 40 MG VIAL IV PUSH SCH (16:22)
--- NOTE | 2017-05-08 17:22 | EKG ---
Date Performed: 05/07/2017 Time Performed: 12:26:05 PTAGE: 61 years EKG: NORMAL Sinus rhythm LVH NONSPECIFIC T-WAVE CHANGES ABNORMAL ECG PREVIOUS TRACING : 07/28/2015 16.14 Likely no significant change. DOCTOR: Misti Buckley Interpretating Date/Time 05/08/2017 17:21:42
[2017-05-09] VITALS (13 sets, daily range): BP systolic 145–217; BP diastolic 79–97; PULSE 60–94; RESP 18–22; TEMP 96.9–99.1; O2SAT 91–96
[2017-05-09] MEDS: MORPHINE SULFATE 4 MG/ML INJ IV PRN ×5 (02:09→23:07)
[2017-05-09] MEDS: SODIUM CHLOR 0.9% 1000 ML INJ 1,000 ML IV SCH (06:35)
[2017-05-09] MEDS: ENALAPRILAT 1.25 MG/ML VIAL IV PRN ×2 (08:59→21:09)
[2017-05-09] MEDS: SODIUM CHLORIDE 0.9% FLUSH 10 ML FLUSH IV FLUSH SCH ×2 (08:59→20:03)
[2017-05-09] MEDS: DOCUSATE SODIUM 50 MG/SENNA 8.6 MG TAB PO SCH ×4 (08:59→20:04)
[2017-05-09 09:00] LABS: AUTOMATED NEUTROPHIL # 3.2 TH/MM3 (1.8-7.7); BASOPHIL # 0.1 TH/MM3 (0-0.2); BASOPHIL % 0.8 % (0.0-2.0); EOSINOPHIL # 0.3 TH/MM3 (0-0.4); EOSINOPHIL % 3.1 % (0.0-4.0); HEMATOCRIT 27.4 % (39.0-51.0); HEMO FLAGS DIFF FINAL; LYMPHOCYTE # 2.9 TH/MM3 (1.0-4.8); MEAN CELL VOLUME 82.4 FL (80.0-100.0); MEAN CORPUSCULAR HEMOGLOBIN 25.6 PG (27.0-34.0); MEAN CORPUSCULAR HGB CONC 31.1 % (32.0-36.0); MONO % 20.3 % (0.0-8.0); NEUT % 39.8 % (16.0-70.0); PLATELET COUNT 253 TH/MM3 (150-450); RED BLOOD COUNT 3.32 MIL/MM3 (4.50-5.90); RED CELL DISTRIBUTION WIDTH 18.3 % (11.6-17.2); WHITE BLOOD COUNT 8.1 TH/MM3 (4.0-11.0)
[2017-05-09 09:19] LABS: BICARBONATE 22.1 MEQ/L (21.0-32.0)
--- NOTE | 2017-05-09 11:06 | HHI.PR ---
Subjective Remarks With nausea, no vomiting. Less abdominal pain . No diarrhea. No fever or chills. Denies cp, sob. Objective Vitals Vital Signs Date Time Temp Pulse Resp B/P Pulse Ox O2 Delivery O2 Flow Rate FiO2 05/09/17 10:28 96.9 94 20 217/85 96 05/09/17 08:50 96.9 61 20 197/97 96 05/09/17 08:30 66 05/09/17 04:00 98.0 67 22 191/96 91 05/09/17 00:07 68 05/09/17 00:00 99.1 67 22 145/79 92 05/08/17 22:00 18 05/08/17 20:30 18 172/74 94 05/08/17 20:00 98.7 71 22 192/95 94 05/08/17 18:36 98.9 68 22 153/81 88 05/08/17 17:00 186/84 05/08/17 16:32 19 05/08/17 16:13 98.5 66 18 186/87 90 05/08/17 12:44 74 I/O 05/08/17 05/08/17 05/08/17 05/09/17 05/09/17 05/09/17 07:00 15:00 23:00 07:00 15:00 23:00 Intake Total 350 ml 1050 ml 400 ml Output Total 4001 ml 400 ml Balance 350 ml 1050 ml -4001 ml 0 ml Intake Oral 50 ml 1050 ml IV Total 300 ml 400 ml Output Urine Total 4001 ml 400 ml # Voids 1 # Bowel Movements 1 0 Result Diagram: 05/09/17 0611 05/09/17 0611 Imaging Last Impressions Chest X-Ray 05/07/17 1155 Signed Impressions: Service Date/Time: Sunday, May 07, 2017 12:04 - CONCLUSION: Prominence in the interstitium throughout which may represent some diffuse processes such as pulmonary venous hypertension or mild underlying interstitial disease. This finding does appear new when compared to the most recent prior chest from 07/28/2015. Nabeel Liang MD Abdomen/Pelvis CT 05/07/17 0000 Signed Impressions: Service Date/Time: Sunday, May 07, 2017 13:41 - CONCLUSION: 1. Interval development of mild congestive failure. 2. Interval development of trace ascites with marked bowel wall thickening second portion the duodenum. 3. Chronic pancreatitis is evident. Acute pancreatitis cannot be excluded. 4. Moderate vascular calcifications are evident. 1. Carlos Kat MD FACR Objective Remarks GENERAL: This is a well-nourished, well-developed patient, in no apparent distress. SKIN: No rashes, ecchymoses or lesions. Cool and dry. HEAD: Atraumatic. Normocephalic. No temporal or scalp tenderness. EYES: Pupils equal round and reactive. Extraocular motions intact. No scleral icterus. No injection or drainage. ENT: Nose without bleeding, purulent drainage or septal hematoma. Throat without erythema, tonsillar hypertrophy or exudate. Uvula midline. Airway patent. NECK: Trachea midline. No JVD or lymphadenopathy. Supple, nontender, no meningeal signs. CARDIOVASCULAR: Regular rate and rhythm without murmurs, gallops, or rubs. RESPIRATORY: Clear to auscultation. Breath sounds equal bilaterally. No wheezes , rales, or rhonchi. GASTROINTESTINAL: Abdomen soft, tender epigastric area, nondistended. No guarding. MUSCULOSKELETAL: Extremities without clubbing, cyanosis, or edema. No joint tenderness, effusion, or edema noted. No calf tenderness. Negative Homans sign bilaterally. NEUROLOGICAL: Awake and alert. Cranial nerves II through XII intact. Motor and sensory grossly within normal limits. Five out of 5 muscle strength in all muscle groups. Normal speech. A/P Problem List: (1) Intractable abdominal pain ICD Code: R10.9 Status: Acute Assessment and Plan This is a 61-year-old male who presents to the ED for evaluation of epigastric abdominal pain. 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 He states that his gallbladder was removed. He denies any chest pain, shortness of breath, fever, chills, cough, UTI symptoms, constipation and diarrhea. He also vomited 3 times prior to admission. No hematemesis. He received morphine 4 mg IV 2 doses and still complains of significant pain scale of 7 out of 10. Patient reports of recent bout of gout and took naproxen about 2 weeks ago. He also had a follow-up EGD about a month ago when he had hematemesis. He was told there was no varices. Intractable abdominal pain with nausea and vomiting. CT shows trace ascites with marked bowel wall thickening second portion the duodenum, chronic pancreatitis, acute pancreatitis cannot be excluded and vascular calcifications are evident. Lipase within normal limits. This could be due to tinnitus versus possible pancreatitis. Patient will be hospitalized for further evaluation and treatment. Start clear liquid diet, gentle IV hydration, pain management with IV morphine and GI prophylaxis with PPI. Hold aspirin and NSAIDs for now. Obtain records from [place] regarding recent EGD. Consult GI specialist. Plan for EGD 05/09/17 CHF on imaging study. Patient denies shortness of breath with no clinical findings consistent with heart failure. He does have history of heart failure. Monitor for fluid overload while on IV hydration Uncontrolled hypertension. Restart home medications with as needed Vasotec and by mouth clonidine. Chronic anemia. Hemoglobin slightly lower than previous. No gross bleeding. Repeat CBC in the morning. Chronic elevated AST with history of alcohol use. Monitor Chronic medical conditions of esophageal varices, CAD status post 5 vessel CABG , hyperlipidemia, COPD and gout. Continue outpatient medications as appropriate when confirmed. DVT prophylaxis with SCD and early ambulation. Pharmacological prophylaxis if stable hemoglobin DC plan pending improvement Mary Pacheco MD May 09, 2017 11:06
[2017-05-09] MEDS ORDERED: PROPOFOL 200 MG/20 ML AMP IV ONE ×2 (11:32→14:36)
--- NOTE | 2017-05-09 11:45 | HHI.GIFU ---
Subjective Remarks Immediate postop note: EGD with biopsy Indication: nausea and vomiting, chronic pancreatitis Meds: MAC Findings: Esophagus: normal Stomach: mild gastritis. Biopsy taken Duodenum: no inflammation. There may be a stent in the area of the major papilla not well seen. Objective Vitals I&O Vital Signs Date Time Temp Pulse Resp B/P Pulse Ox O2 Delivery O2 Flow Rate FiO2 05/09/17 10:28 96.9 94 20 217/85 96 05/09/17 08:50 96.9 61 20 197/97 96 05/09/17 08:30 66 05/09/17 04:00 98.0 67 22 191/96 91 05/09/17 00:07 68 05/09/17 00:00 99.1 67 22 145/79 92 05/08/17 22:00 18 05/08/17 20:30 18 172/74 94 05/08/17 20:00 98.7 71 22 192/95 94 05/08/17 18:36 98.9 68 22 153/81 88 05/08/17 17:00 186/84 05/08/17 16:32 19 05/08/17 16:13 98.5 66 18 186/87 90 05/08/17 12:44 74 I/O 05/08/17 05/08/17 05/08/17 05/09/17 05/09/17 05/09/17 07:00 15:00 23:00 07:00 15:00 23:00 Intake Total 350 ml 1050 ml 400 ml Output Total 4001 ml 400 ml Balance 350 ml 1050 ml -4001 ml 0 ml Intake Oral 50 ml 1050 ml IV Total 300 ml 400 ml Output Urine Total 4001 ml 400 ml # Voids 1 # Bowel Movements 1 0 Laboratory Laboratory Tests Test 05/08/17 05/09/17 14:58 06:11 White Blood Count 7.2 8.1 Red Blood Count 3.19 3.32 Hemoglobin 8.1 8.5 Hematocrit 26.3 27.4 Mean Corpuscular Volume 82.3 82.4 Mean Corpuscular Hemoglobin 25.5 25.6 Mean Corpuscular Hemoglobin 30.9 31.1 Concent Red Cell Distribution Width 17.8 18.3 Platelet Count 235 253 Mean Platelet Volume 9.4 10.4 Neutrophils (%) (Auto) 47.0 39.8 Lymphocytes (%) (Auto) 30.8 36.0 Monocytes (%) (Auto) 18.9 20.3 Eosinophils (%) (Auto) 2.5 3.1 Basophils (%) (Auto) 0.8 0.8 Neutrophils # (Auto) 3.4 3.2 Lymphocytes # (Auto) 2.2 2.9 Monocytes # (Auto) 1.4 1.7 Eosinophils # (Auto) 0.2 0.3 Basophils # (Auto) 0.1 0.1 CBC Comment DIFF FINAL DIFF FINAL Differential Comment Sodium Level 142 140 Potassium Level 4.2 4.0 Chloride Level 110 108 Carbon Dioxide Level 26.5 22.1 Anion Gap 6 10 Blood Urea Nitrogen 6 7 Creatinine 0.93 0.86 Estimat Glomerular Filtration 100 109 Rate Random Glucose 81 67 Calcium Level 7.9 8.0 Total Bilirubin 0.2 Aspartate Amino Transf 53 (AST/SGOT) Alanine Aminotransferase 57 (ALT/SGPT) Alkaline Phosphatase 116 Total Protein 6.5 Albumin 2.6 Lipase 28 Physical Exam HEENT: Pupils round and reactive to light; normocephalic; atraumatic; no jaundice. Throat is clear. NECK: Neck is supple, no JVD, no lymphadenopathy. CHEST: Chest is clear to auscultation and percussion. CARDIAC: Regular rate and rhythm with no murmur gallop or rubs. ABDOMEN: Soft, nondistended, nontender; no hepatosplenomegaly; bowel sounds are present in all four quadrants. EXTREMITIES: No clubbing, cyanosis, or edema. SKIN: Normal; no rash; no jaundice. 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 Assessment and Plan Plan ASSESSMENT - epigastric pain - onset 05/07. hx chronic pancreatitis, ETOH abuse. Lipase WNL. [facility] 1 m [facility], cannot recall findings. CT 05-07-17-->1. Interval development of mild congestive failure. 2. Interval development of trace ascites with marked bowel wall thickening second portion the duodenum. 3. Chronic pancreatitis is evident. Acute pancreatitis cannot be excluded. 4. Moderate vascular calcifications are evident. - n/v - no vomiting today. unclear etiology. no blood. -05/09 EGD shows mild gastritis. Biopsy. Also a possible stent is present in the major papilla This in not apparent on the CT scan. PLAN - clears - Advance diet to low fat if tolerated Fonseca,Luis March MD May 09, 2017 11:45
[2017-05-09] MEDS: PANTOPRAZOLE SODIUM 40 MG VIAL IV PUSH SCH (16:19)
[2017-05-09] MEDS: cloNIDine HCL 0.1 MG TAB PO PRN (16:19)
[2017-05-10] VITALS (10 sets, daily range): BP systolic 154–207; BP diastolic 79–98; PULSE 56–79; RESP 17–20; TEMP 96.4–98.8; O2SAT 92–99
[2017-05-10] MEDS: cloNIDine HCL 0.1 MG TAB PO PRN ×2 (00:06→13:53)
[2017-05-10] MEDS: MORPHINE SULFATE 4 MG/ML INJ IV PRN ×6 (02:14→23:31)
[2017-05-10] MEDS: SODIUM CHLOR 0.9% 1000 ML INJ 1,000 ML IV SCH ×2 (05:27→23:31)
[2017-05-10] MEDS: SODIUM CHLORIDE 0.9% FLUSH 10 ML FLUSH IV FLUSH SCH ×2 (07:57→19:37)
[2017-05-10] MEDS: DOCUSATE SODIUM 50 MG/SENNA 8.6 MG TAB PO SCH ×2 (07:57→19:35)
--- NOTE | 2017-05-10 10:19 | HHI.GIFU ---
Subjective Remarks Pt OOB to bathroom, ambulating, to chair. Says his pain is better, 5/10 today. No nausea. Asking for food. Objective Vitals I&O Vital Signs Date Time Temp Pulse Resp B/P Pulse Ox O2 Delivery O2 Flow Rate FiO2 05/10/17 08:00 98.2 60 20 198/93 99 05/10/17 03:00 154/86 05/10/17 00:00 98.4 58 17 167/82 92 05/09/17 22:00 62 178/86 93 05/09/17 21:10 66 05/09/17 21:00 97.7 71 18 182/88 94 05/09/17 20:08 60 05/09/17 20:00 99.0 63 20 172/82 95 05/09/17 17:00 20 05/09/17 16:00 98.9 71 20 193/89 93 05/09/17 14:52 98.8 76 20 179/87 95 05/09/17 11:53 68 18 189/89 94 05/09/17 11:43 65 18 179/86 95 05/09/17 11:33 98.6 72 18 177/84 92 05/09/17 10:28 96.9 94 20 217/85 96 I/O 05/09/17 05/09/17 05/09/17 05/10/17 05/10/17 05/10/17 07:00 15:00 23:00 07:00 15:00 23:00 Intake Total 400 ml 1160 ml 200 ml Output Total 400 ml 300 ml 250 ml 300 ml Balance 0 ml 1160 ml -100 ml -250 ml -300 ml Intake Oral 960 ml IV Total 400 ml 200 ml Other 200 ml Output Urine Total 400 ml 300 ml 250 ml 300 ml # Voids 1 # Bowel Movements 0 Physical Exam HEENT: PERRL; normocephalic; atraumatic; no jaundice. CHEST: wheezes CARDIAC: RRR ABDOMEN: Soft, nondistended,epigastric TTP; no hepatosplenomegaly; bowel sounds are present in all four quadrants. EXTREMITIES: No clubbing, cyanosis, or edema. SKIN: Normal; no rash; no jaundice. 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 Assessment and Plan Plan ASSESSMENT - epigastric pain - onset 05/07. hx chronic pancreatitis, ETOH abuse. Lipase WNL. [facility] 1 m [facility], cannot recall findings. EGD 05-09-17--> shows mild gastritis. Biopsy. Also a possible stent is present in the major papilla This in not apparent on the CT scan. CT 05-07-17-->1. Interval development of mild congestive failure. 2. Interval development of trace ascites with marked bowel wall thickening second portion the duodenum. 3. Chronic pancreatitis is evident. Acute pancreatitis cannot be excluded. 4. Moderate vascular calcifications are evident. - n/v - no vomiting today. unclear etiology. no blood. PLAN - Advance diet to low fat if tolerated - supportive care - await biopsies - await MRCP results - if MRCP shows stent, poss ERCP remove vs replace stent This pt seen by myself and Dalia Winchestre May 10, 2017 10:19
--- NOTE | 2017-05-10 10:47 | RADRPT ---
EXAM DATE/TIME: 05/10/2017 08:56 [facility] COMPARISON: CT ABDOMEN & PELVIS W CONTRAST, July 28, 2015, 16:30. INDICATIONS : Abdominal pain. MEDICAL HISTORY : Hypertension. Chronic obstructive pulmonary disease. ETOH SURGICAL HISTORY : Appendectomy. Cholecystectomy. CABG ENCOUNTER: Subsequent ACUITY: 3 day PAIN SCORE: 2/10 LOCATION: upper quadrant abdomen. TECHNIQUE: Multiplanar, multisequence magnetic resonance imaging of the abdomen was performed. High-resolution 3D dataset was utilized to reconstruct maximum-intensity projection (MIP) images. FINDINGS: Correlation is made with prior CT from 2015. Common bile duct remains dilated to about [address] Pancreatic duct is also dilated to about 9 mm in diameter. These findings are similar to Septemb er [address] On MRI no significant inflammatory changes are identified around the pancreas. There bilateral pleural effusions, small to moderate on the right and small on the left superior comp josephine. Previous median sternotomy. Heart size is enlarged. Basal airspace disease in the lungs present. Liver demonstrates some intrahepatic biliary ductal dilatation. No suspicious liver mass. Visualized spleen, adrenals, kidneys demonstrate no acute findings. No significant bowel dilatation. There is mi ld anasarca. CONCLUSION: 1. Chronic dilatation of the common bile duct to 12 mm and the distal pancreatic duct to about 9 mm w ithout evidence for choledocholithiasis. No significant inflammatory changes identified around the pa ncreas on the current exam. 2. Complex [id number] bilateral pleural effusions. 3. Mild anasarca. Michael Baker MD on May 10, 2017 at 10:36 Board Certified Radiologist. This report was verified electronically.
--- NOTE | 2017-05-10 10:54 | HHI.PR ---
Subjective Remarks The pt said he went for an MRI. He had questions about his varices. He still had abdominal pain. No complaints with bowel movements. Discussed with nursing. He clarified his blood pressure meds. Objective Vitals Vital Signs Date Time Temp Pulse Resp B/P Pulse Ox O2 Delivery O2 Flow Rate FiO2 05/10/17 08:00 98.2 60 20 198/93 99 05/10/17 03:00 154/86 05/10/17 00:00 98.4 58 17 167/82 92 05/09/17 22:00 62 178/86 93 05/09/17 21:10 66 05/09/17 21:00 97.7 71 18 182/88 94 05/09/17 20:08 60 05/09/17 20:00 99.0 63 20 172/82 95 05/09/17 17:00 20 05/09/17 16:00 98.9 71 20 193/89 93 05/09/17 14:52 98.8 76 20 179/87 95 05/09/17 11:53 68 18 189/89 94 05/09/17 11:43 65 18 179/86 95 05/09/17 11:33 98.6 72 18 177/84 92 I/O 05/09/17 05/09/17 05/09/17 05/10/17 05/10/17 05/10/17 07:00 15:00 23:00 07:00 15:00 23:00 Intake Total 400 ml 1160 ml 200 ml Output Total 400 ml 300 ml 250 ml 300 ml Balance 0 ml 1160 ml -100 ml -250 ml -300 ml Intake Oral 960 ml IV Total 400 ml 200 ml Other 200 ml Output Urine Total 400 ml 300 ml 250 ml 300 ml # Voids 1 # Bowel Movements 0 Result Diagram: 05/09/17 0611 05/09/17 0611 Imaging Last Impressions Chest X-Ray 05/07/17 1155 Signed Impressions: Service Date/Time: Sunday, May 07, 2017 12:04 - CONCLUSION: Prominence in the interstitium throughout which may represent some diffuse processes such as pulmonary venous hypertension or mild underlying interstitial disease. This finding does appear new when compared to the most recent prior chest from 07/28/2015. Nabeel Liang MD Abdomen/Pelvis CT 05/07/17 0000 Signed Impressions: Service Date/Time: Sunday, May 07, 2017 13:41 - CONCLUSION: 1. Interval development of mild congestive failure. 2. Interval development of trace ascites with marked bowel wall thickening second portion the duodenum. 3. Chronic pancreatitis is evident. Acute pancreatitis cannot be excluded. 4. Moderate vascular calcifications are evident. 1. Carlos Kat MD FACR Objective Remarks GENERAL: This is a well-nourished, well-developed patient, in no apparent distress. SKIN: No rashes, ecchymoses or lesions. Cool and dry. HEAD: Atraumatic. Normocephalic. No temporal or scalp tenderness. EYES: Pupils equal round and reactive. Extraocular motions intact. No scleral icterus. No injection or drainage. ENT: Nose without bleeding, purulent drainage or septal hematoma. Throat without erythema, tonsillar hypertrophy or exudate. Uvula midline. Airway patent. NECK: Trachea midline. No JVD or lymphadenopathy. Supple, nontender, no meningeal signs. CARDIOVASCULAR: Regular rate and rhythm without murmurs, gallops, or rubs. RESPIRATORY: Clear to auscultation. Breath sounds equal bilaterally. No wheezes , rales, or rhonchi. GASTROINTESTINAL: Abdomen soft, tender epigastric area, nondistended. No guarding. MUSCULOSKELETAL: Extremities without clubbing, cyanosis, or edema. No joint tenderness, effusion, or edema noted. NEUROLOGICAL: Awake and alert. Cranial nerves II through XII intact. Motor and sensory grossly within normal limits. Five out of 5 muscle strength in all muscle groups. Normal speech. PSYCH: Mood and affect appropriate. Procedures EGD Medications and IVs Current Medications Medications (Trade) Dose Ordered Sig/Lino Route Start Time Stop Time Status Last Admin (Vasotec Inj) 1.25 mg Q6H PRN IV 05/07/17 15:00 05/09/17 21:09 Clonidine 0.1 mg 0.1 mg Q6H PRN PO 05/07/17 15:00 05/10/17 00:06 (NS 1000 ml Inj) 1,000 ml @ 50 mls/hr Q20H IV 05/07/17 14:46 05/10/17 05:27 (NS Flush) 2 ml UNSCH PRN IV FLUSH 05/07/17 15:00 05/09/17 20:03 (NS Flush) 2 ml BID IV FLUSH 05/07/17 21:00 05/09/17 08:59 (Tylenol) 650 mg Q4H PRN PO 05/07/17 15:00 (Zofran Inj) 4 mg Q6H PRN IVP 05/07/17 15:00 05/08/17 08:29 (Morphine Inj) 2 mg Q3H PRN IV 05/07/17 15:00 05/09/17 20:04 (Morphine Inj) 4 mg Q3H PRN IV 05/07/17 15:00 05/10/17 07:56 (Morphine Inj) 4 mg Q3H PRN IV 05/07/17 15:00 (Narcan Inj) 0.4 mg UNSCH PRN IV 05/07/17 15:00 (Crista-Colace) 1 tab BID PO 05/07/17 21:00 05/10/17 07:57 (Milk Of Magnesia Liq) 30 ml Q12H PRN PO 05/07/17 15:00 (Lactulose Liq) 30 ml DAILY PRN PO 05/07/17 15:00 (Protonix Inj) 40 mg Q24H IV PUSH 05/07/17 17:00 05/09/17 16:19 A/P Problem List: (1) Intractable abdominal pain ICD Code: R10.9 Status: Acute Assessment and Plan This is a 61-year-old male who presents to the ED for evaluation of epigastric abdominal pain. 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 He states that his gallbladder was removed. He denies any chest pain, shortness of breath, fever, chills, cough, UTI symptoms, constipation and diarrhea. He also vomited 3 times prior to admission. No hematemesis. He received morphine 4 mg IV 2 doses and still complains of significant pain scale of 7 out of 10. Patient reports of recent bout of gout and took naproxen about 2 weeks ago. He also had a follow-up EGD about a month ago when he had hematemesis. He was told there was no varices. Intractable abdominal pain With nausea and vomiting. CT shows trace ascites with marked bowel wall thickening second portion the duodenum, chronic pancreatitis, acute pancreatitis cannot be excluded and vascular calcifications are evident. Lipase within normal limits. GI consult appreciated. EGD showed mild gastritis; Also a possible stent is present in the major papilla. - ADAT. - pain management and PPI. - Hold aspirin and NSAIDs for now. - follow biopsy results. - MRCP pending. CHF On imaging study. Patient denies shortness of breath with no clinical findings consistent with heart failure. He does have a history of heart failure and CAD s/p CABG. - Monitor for fluid overload while on IV hydration. Uncontrolled hypertension Blood pressure remains elevated. - Restart home medications with as needed Vasotec and by mouth clonidine. - HCTZ/ lisinopril added. Chronic anemia Hemoglobin slightly lower than previous. No gross bleeding. - Repeat CBC as needed. DVT prophylaxis with SCD and early ambulation Discharge Planning Awaiting clinical improvement Nicholas Garcia DO May 10, 2017 10:54
[2017-05-10] MEDS ORDERED: HYDROCHLOROTHIAZIDE 25 MG TAB PO SCH (11:00)
[2017-05-10] MEDS ORDERED: LISINOPRIL 20 MG TAB PO SCH (11:00)
[2017-05-10] MEDS ORDERED: LIPI40TA PO (14:40)
[2017-05-10] MEDS ORDERED: HYDR-3800 (14:40)
[2017-05-10] MEDS ORDERED: NICO1PAT (14:40)
[2017-05-10] MEDS ORDERED: CARV6.252 PO (14:40)
[2017-05-10] MEDS ORDERED: ACAM1TAB5 PO (14:40)
[2017-05-10] MEDS ORDERED: FOLI1TAB6 (14:40)
[2017-05-10] MEDS ORDERED: AMLO10 PO (14:40)
[2017-05-10] MEDS ORDERED: MIRTA15 PO (14:40)
[2017-05-10] MEDS ORDERED: ASPI-110 PO (14:40)
[2017-05-10] MEDS ORDERED: VITA100T54 PO (14:40)
[2017-05-10] MEDS ORDERED: LISI40TA PO (14:40)
[2017-05-10] MEDS ORDERED: CARVEDILOL 6.25 MG TAB PO SCH (15:00)
[2017-05-10] MEDS: hydrALAZINE HCL 50 MG TAB PO SCH (16:17)
[2017-05-10] MEDS: PANTOPRAZOLE SODIUM 40 MG VIAL IV PUSH SCH (16:18)
[2017-05-10] MEDS: ATORVASTATIN 40 MG TAB PO SCH (16:20)
[2017-05-10] MEDS ORDERED: ACAMPROSATE 333 MG PO SCH ×2 (18:00)
[2017-05-10] MEDS: ENALAPRILAT 1.25 MG/ML VIAL IV PRN (18:07)
[2017-05-10] MEDS: CARVEDILOL 6.25 MG TAB PO SCH (19:35)
[2017-05-10] MEDS ORDERED: MIRTAZAPINE 15 MG TAB PO SCH (21:00)
[2017-05-11] VITALS: BP 172/86; PULSE 74; RESP 18; TEMP 97.8; O2SAT 93
[2017-05-11] MEDS: MORPHINE SULFATE 4 MG/ML INJ IV PRN ×2 (03:36→08:08)
[2017-05-11 04:00] VITALS: BP 172/90; PULSE 68; RESP 17; TEMP 99.1; O2SAT 97
[2017-05-11 05:58] VITALS: BP 193/84; PULSE 62; RESP 18; O2SAT 94
[2017-05-11] MEDS: cloNIDine HCL 0.1 MG TAB PO PRN (06:01)
[2017-05-11 07:11] VITALS: BP 150/82; PULSE 62; RESP 18; O2SAT 95
[2017-05-11 08:00] VITALS: BP 171/89; PULSE 74; RESP 18; TEMP 100.1; O2SAT 98
[2017-05-11] MEDS: CARVEDILOL 6.25 MG TAB PO SCH (08:09)
[2017-05-11] MEDS: DOCUSATE SODIUM 50 MG/SENNA 8.6 MG TAB PO SCH (08:09)
[2017-05-11] MEDS: ATORVASTATIN 40 MG TAB PO SCH (08:09)
[2017-05-11] MEDS: SODIUM CHLORIDE 0.9% FLUSH 10 ML FLUSH IV FLUSH SCH (08:10)
[2017-05-11] MEDS: hydrALAZINE HCL 50 MG TAB PO SCH ×2 (08:10→12:12)
[2017-05-11] MEDS ORDERED: LISINOPRIL 20 MG TAB PO SCH (09:00)
[2017-05-11] MEDS ORDERED: THIAMINE HCL 100 MG TAB PO SCH (09:00)
[2017-05-11] MEDS ORDERED: ASPIRIN EC 81 MG TABEC PO SCH (09:00)
--- NOTE | 2017-05-11 11:18 | HHI.PR ---
Subjective Remarks The patient says his pain level is down to a 4 out of 10. He has been having bowel movements. He is breathing comfortably. He says he'll be going back to the [facility] upon discharge. Objective Vitals Vital Signs Date Time Temp Pulse Resp B/P Pulse Ox O2 Delivery O2 Flow Rate FiO2 05/11/17 08:00 100.1 74 18 171/89 98 05/11/17 07:11 62 18 150/82 95 05/11/17 05:58 62 18 193/84 94 05/11/17 04:00 99.1 68 17 172/90 97 05/11/17 03:45 18 05/11/17 00:00 97.8 74 18 172/86 93 05/10/17 20:00 98.8 79 18 171/79 92 05/10/17 18:30 173/84 05/10/17 18:05 173/85 05/10/17 16:00 98.5 56 18 170/80 95 05/10/17 15:17 170/80 05/10/17 13:00 77 207/98 05/10/17 12:00 96.4 63 18 191/87 95 I/O 05/10/17 05/10/17 05/10/17 05/11/17 05/11/17 05/11/17 07:00 15:00 23:00 07:00 15:00 23:00 Intake Total 1200 ml 240 ml 960 ml Output Total 250 ml 300 ml 900 ml Balance -250 ml 900 ml 240 ml 60 ml Intake Oral 1200 ml 240 ml 960 ml Output Urine Total 250 ml 300 ml 900 ml # Voids 5 1 # Bowel Movements 1 Result Diagram: 05/09/17 0611 05/09/17 0611 Imaging Last Impressions Cholangiopancreatography MRI 05/10/17 0000 Signed Impressions: Service Date/Time: April 08:56 - CONCLUSION: 1. Chronic dilatation of the common bile duct to 12 mm and the distal pancreatic duct to about 9 mm without evidence for choledocholithiasis. No significant inflammatory changes identified around the pancreas on the current exam. 2. Complex [id number] bilateral pleural effusions. 3. Mild anasarca. Michael Baker MD Chest X-Ray 05/07/17 1155 Signed Impressions: Service Date/Time: Sunday, May 07, 2017 12:04 - CONCLUSION: Prominence in the interstitium throughout which may represent some diffuse processes such as pulmonary venous hypertension or mild underlying interstitial disease. This finding does appear new when compared to the most recent prior chest from 07/28/2015. Nabeel Liang MD Abdomen/Pelvis CT 05/07/17 0000 Signed Impressions: Service Date/Time: Sunday, May 07, 2017 13:41 - CONCLUSION: 1. Interval development of mild congestive failure. 2. Interval development of trace ascites with marked bowel wall thickening second portion the duodenum. 3. Chronic pancreatitis is evident. Acute pancreatitis cannot be excluded. 4. Moderate vascular calcifications are evident. 1. Carlos Kat MD FACR Objective Remarks GENERAL: This is a well-nourished, well-developed patient, in no apparent distress. SKIN: No rashes, ecchymoses or lesions. Cool and dry. HEAD: Atraumatic. Normocephalic. No temporal or scalp tenderness. EYES: Pupils equal round and reactive. Extraocular motions intact. No scleral icterus. No injection or drainage. ENT: Nose without bleeding, purulent drainage or septal hematoma. Throat without erythema, tonsillar hypertrophy or exudate. Uvula midline. Airway patent. NECK: Trachea midline. No JVD or lymphadenopathy. Supple, nontender, no meningeal signs. CARDIOVASCULAR: Regular rate and rhythm without murmurs, gallops, or rubs. RESPIRATORY: Mild wheezing appreciated. GASTROINTESTINAL: Abdomen soft, nontender, nondistended. No guarding. MUSCULOSKELETAL: Extremities without clubbing, cyanosis, or edema. No joint tenderness, effusion, or edema noted. NEUROLOGICAL: Awake and alert. Cranial nerves II through XII intact. Motor and sensory grossly within normal limits. Five out of 5 muscle strength in all muscle groups. Normal speech. PSYCH: Mood and affect appropriate. Procedures EGD Medications and IVs Current Medications Medications (Trade) Dose Ordered Sig/Lino Route Start Time Stop Time Status Last Admin (Vasotec Inj) 1.25 mg Q6H PRN IV 05/07/17 15:00 05/10/17 18:07 (Catapres) 0.1 mg Q6H PRN PO 05/07/17 15:00 05/11/17 06:01 (NS Flush) 2 ml UNSCH PRN IV FLUSH 05/07/17 15:00 05/09/17 20:03 (NS Flush) 2 ml BID IV FLUSH 05/07/17 21:00 05/11/17 08:10 (Tylenol) 650 mg Q4H PRN PO 05/07/17 15:00 (Zofran Inj) 4 mg Q6H PRN IVP 05/07/17 15:00 05/08/17 08:29 (Narcan Inj) 0.4 mg UNSCH PRN IV 05/07/17 15:00 (Crista-Colace) 1 tab BID PO 05/07/17 21:00 05/11/17 08:09 (Milk Of Magnesia Liq) 30 ml Q12H PRN PO 05/07/17 15:00 (Lactulose Liq) 30 ml DAILY PRN PO 05/07/17 15:00 (Protonix Inj) 40 mg Q24H IV PUSH 05/07/17 17:00 05/10/17 16:18 (Prinivil) 40 mg DAILY PO 05/11/17 09:00 05/11/17 08:09 (Ecotrin Ec) 81 mg DAILY PO 05/11/17 09:00 05/11/17 08:09 (Lipitor) 40 mg DAILY PO 05/10/17 15:00 05/11/17 08:09 (Apresoline) 100 mg TID PO 05/10/17 18:00 05/11/17 08:10 (Remeron) 15 mg HS PO 05/10/17 21:00 05/10/17 19:35 (Vitamin B1) 100 mg DAILY PO 05/11/17 09:00 05/11/17 08:08 (Norvasc) 10 mg DAILY PO 05/10/17 15:00 05/11/17 08:09 (Coreg) 6.25 mg BID PO 05/10/17 21:00 05/11/17 08:09 Patient Own Medication PT OWN MED: ACAMPROS... TID PO 05/10/17 18:00 Hold (Roxicodone) 5 mg Q4H PRN PO 05/11/17 09:45 (Roxicodone) 10 mg Q4H PRN PO 05/11/17 10:00 A/P Problem List: (1) Intractable abdominal pain ICD Code: R10.9 Status: Acute Assessment and Plan This is a 61-year-old male who presents to the ED for evaluation of epigastric abdominal pain. 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 He states that his gallbladder was removed. He denies any chest pain, shortness of breath, fever, chills, cough, UTI symptoms, constipation and diarrhea. He also vomited 3 times prior to admission. No hematemesis. He received morphine 4 mg IV 2 doses and still complains of significant pain scale of 7 out of 10. Patient reports of recent bout of gout and took naproxen about 2 weeks ago. He also had a follow-up EGD about a month ago when he had hematemesis. He was told there was no varices. Intractable abdominal pain With nausea and vomiting. CT shows trace ascites with marked bowel wall thickening second portion the duodenum, chronic pancreatitis, acute pancreatitis cannot be excluded and vascular calcifications are evident. Lipase within normal limits. GI consult appreciated. EGD showed mild gastritis. Biopsy showed reactive gastropathy. MRCP: Chronic dilatation of the common bile duct to 12 mm and the distal pancreatic duct to about 9 mm without evidence for choledocholithiasis; No significant inflammatory changes identified around the pancreas on the current exam. Cleared for discharge per GI. - ADAT. - pain management and PPI. - follow up with GI as an outpt. CHF On imaging study. Patient denies shortness of breath with no clinical findings consistent with heart failure. He does have a history of heart failure and CAD s/p CABG. - outpt follow-up. Accelerated hypertension Blood pressure remains elevated. - Restart home medications with as needed Vasotec and by mouth clonidine. - will need PCP follow-up upon discharge. Chronic anemia Hemoglobin slightly lower than previous. No gross bleeding. - Repeat CBC as needed. DVT prophylaxis with SCD and early ambulation Discharge Planning Awaiting improvement in blood pressure. Possibly later today or tomorrow morning Nicholas Garcia DO May 11, 2017 11:18
[2017-05-11] MEDS ORDERED: OXYC-392 PO (11:19)
[2017-05-11 12:00] VITALS: BP 104/55; PULSE 70; RESP 18; TEMP 99.2; O2SAT 92
[2017-05-11] MEDS ORDERED: PANTOPRAZOLE SOD 40 MG DELAYED RELEASE TAB PO SCH (12:00)
[2017-05-11] MEDS ORDERED: CARV6.252 PO (14:38)
[2017-05-11] MEDS ORDERED: AMLO10 PO (14:38)
[2017-05-11] MEDS ORDERED: HYDR-3800 PO (14:38)
[2017-05-11] MEDS ORDERED: PANT40TA3 PO (14:38)
[2017-05-11] MEDS ORDERED: LISI40TA PO (14:38)
--- NOTE | 2017-05-11 14:38 | HHI.DCPOC ---
Discharge Care Plan Diagnosis: (1) Intractable abdominal pain (2) Pancreatitis, acute (3) Hypertension Goals to Promote Your Health * To prevent worsening of your condition and complications * To maintain your health at the optimal level Directions to Meet Your Goals Take your medications as prescribed Follow your dietary instruction Follow activity as directed Keep your appointments as scheduled Take your immunizations and boosters as scheduled If your symptoms worsen call your PCP, if no PCP go to Urgent Care Center or Emergency Room Smoking is Dangerous to Your Health. Avoid second hand smoke Call the 24-hour hour crisis hotline for domestic abuse at Nicholas Garcia DO May 11, 2017 14:38
--- NOTE | 2017-05-11 14:44 | HHI.DS ---
Discharge Summary Admission Date May 07, 2017 at 14:49 Discharge Date: May 11, 2017 Admitting Diagnosis intractable abdominal pain with vomiting (1) Intractable abdominal pain ICD Code: R10.9 Diagnosis: Principal (2) Hypertension ICD Code: I10 (3) Pancreatitis, acute ICD Code: K85.90 Procedures EGD Brief History - From Admission This is a 61-year-old male with a history of alcohol pancreatitis, esophageal varices, CAD status post 5 vessel CABG, hyperlipidemia, congestive heart failure , hypertension, COPD and gout. He presents to the ED for evaluation of epigastric abdominal pain. 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 He states that his gallbladder was removed. He denies any chest pain, shortness of breath, fever, chills, cough, UTI symptoms, constipation and diarrhea. He also vomited 3 times prior to admission. No hematemesis. He received morphine 4 mg IV 2 doses and still complains of significant pain scale of 7 out of 10. He has been advised hospitalization for intractable pain. Patient reports of recent bout of gout and took naproxen about 2 weeks ago. He also had a follow-up EGD about a month ago when he had hematemesis. He was told there was no varices. All other systems reviewed negative CBC/BMP: 05/09/17 0611 05/09/17 0611 Significant Findings Laboratory Tests Test 05/08/17 05/09/17 14:58 06:11 Red Blood Count 3.19 MIL/MM3 3.32 MIL/MM3 (4.50-5.90) (4.50-5.90) Hemoglobin 8.1 GM/DL 8.5 GM/DL (13.0-17.0) (13.0-17.0) Hematocrit 26.3 % 27.4 % (39.0-51.0) (39.0-51.0) Mean Corpuscular Hemoglobin 25.5 PG 25.6 PG (27.0-34.0) (27.0-34.0) Mean Corpuscular Hemoglobin 30.9 % 31.1 % Concent (32.0-36.0) (32.0-36.0) Red Cell Distribution Width 17.8 % 18.3 % (11.6-17.2) (11.6-17.2) Monocytes (%) (Auto) 18.9 % 20.3 % (0.0-8.0) (0.0-8.0) Monocytes # (Auto) 1.4 TH/MM3 1.7 TH/MM3 (0-0.9) (0-0.9) Chloride Level 110 MEQ/L 108 MEQ/L (98-107) (98-107) Blood Urea Nitrogen 6 MG/DL (7-18) Calcium Level 7.9 MG/DL 8.0 MG/DL (8.5-10.1) (8.5-10.1) Aspartate Amino Transf 53 U/L (15-37) (AST/SGOT) Albumin 2.6 GM/DL (3.4-5.0) Lipase 28 U/L (73-393) Random Glucose 67 MG/DL (74-106) Imaging Last Impressions Cholangiopancreatography MRI 05/10/17 0000 Signed Impressions: Service Date/Time: April 08:56 - CONCLUSION: 1. Chronic dilatation of the common bile duct to 12 mm and the distal pancreatic duct to about 9 mm without evidence for choledocholithiasis. No significant inflammatory changes identified around the pancreas on the current exam. 2. Complex [id number] bilateral pleural effusions. 3. Mild anasarca. Michael Baker MD Chest X-Ray 05/07/17 1155 Signed Impressions: Service Date/Time: Sunday, May 07, 2017 12:04 - CONCLUSION: Prominence in the interstitium throughout which may represent some diffuse processes such as pulmonary venous hypertension or mild underlying interstitial disease. This finding does appear new when compared to the most recent prior chest from 07/28/2015. Nabeel Liang MD Abdomen/Pelvis CT 05/07/17 0000 Signed Impressions: Service Date/Time: Sunday, May 07, 2017 13:41 - CONCLUSION: 1. Interval development of mild congestive failure. 2. Interval development of trace ascites with marked bowel wall thickening second portion the duodenum. 3. Chronic pancreatitis is evident. Acute pancreatitis cannot be excluded. 4. Moderate vascular calcifications are evident. 1. Carlos Kat MD FACR PE at Discharge GENERAL: This is a well-nourished, well-developed patient, in no apparent distress. SKIN: No rashes, ecchymoses or lesions. Cool and dry. HEAD: Atraumatic. Normocephalic. No temporal or scalp tenderness. EYES: Pupils equal round and reactive. Extraocular motions intact. No scleral icterus. No injection or drainage. ENT: Nose without bleeding, purulent drainage or septal hematoma. Throat without erythema, tonsillar hypertrophy or exudate. Uvula midline. Airway patent. NECK: Trachea midline. No JVD or lymphadenopathy. Supple, nontender, no meningeal signs. CARDIOVASCULAR: Regular rate and rhythm without murmurs, gallops, or rubs. RESPIRATORY: Mild wheezing appreciated. GASTROINTESTINAL: Abdomen soft, nontender, nondistended. No guarding. MUSCULOSKELETAL: Extremities without clubbing, cyanosis, or edema. No joint tenderness, effusion, or edema noted. NEUROLOGICAL: Awake and alert. Cranial nerves II through XII intact. Motor and sensory grossly within normal limits. Five out of 5 muscle strength in all muscle groups. Normal speech. PSYCH: Mood and affect appropriate. Hospital Course Intractable abdominal pain With nausea and vomiting. CT showed trace ascites with marked bowel wall thickening involving the second portion of the duodenum, chronic pancreatitis, and vascular calcifications were evident. Lipase within normal limits. GI was consulted. EGD showed mild gastritis. Biopsy showed reactive gastropathy. MRCP : Chronic dilatation of the common bile duct to 12 mm and the distal pancreatic duct to about 9 mm without evidence for choledocholithiasis; No significant inflammatory changes identified around the pancreas on the current exam. Cleared for discharge per GI. His diet was advanced. He received pain management and a PPI. He will follow up with GI as an outpt. Accelerated hypertension We restarted his home medications including lisinopril, hydralazine, amlodipine and Coreg with as needed Vasotec and clonidine. Improved. Will need PCP follow- up upon discharge. Chronic anemia Hemoglobin slightly lower than previous. No gross bleeding. EGD as above. He will follow up with GI. Homeless Case management was consulted and helped arrange for medications and transportation. Pt Condition on Discharge: Stable Discharge Disposition: Discharge Home Discharge Time: > 30 minutes Discharge Instructions DIET: Follow Instructions for: Heart Healthy Diet Activities you can perform: Weight Bearing as Heaven Follow up Referrals: Gastroenterology - 2 Weeks PCP Follow-up - 1 Week New Medications: Oxycodone (Oxycodone) 5 Mg Tab 5 MG PO Q6HR PRN pain #20 TAB Pantoprazole (Pantoprazole) 40 Mg Tab 40 MG PO DAILY Stomach #30 TAB Changed Medications: Hydralazine HCl (Hydralazine HCl) 50 Mg Tablet 2 TAB PO TID Blood Pressure Management #90 TAB (Medication details modified) Continued Medications: Acamprosate DR (Acamprosate DR) 333 Mg Tab 333 MG PO TID #90 Ref 2 TAB Amlodipine (Norvasc) 10 Mg Tab 10 MG PO DAILY Blood Pressure Management #30 Ref 0 TAB (This prescription has been renewed) Aspirin DR (Aspirin 81) 81 Mg Tabdr 81 MG PO DAILY Ref 0 TAB Atorvastatin (Lipitor) 40 Mg Tab 40 MG PO DAILY PRN Cholesterol Management #30 Ref 1 TAB Carvedilol (Carvedilol) 6.25 Mg Tab 6.25 MG PO BID #60 Ref 0 TAB (This prescription has been renewed) Clonidine 0.2 mg (Catapres 0.2 mg) 0.2 Mg Tab 1 TAB PO BID TAB Folic Acid (Folic Acid) 1 Mg Tablet 1 MG DAILY PRN WITHDRAWAL Lisinopril (Lisinopril) 40 Mg Tab 40 MG PO DAILY Blood Pressure Management #30 Ref 0 TAB (This prescription has been renewed) Mirtazapine (Mirtazapine) 15 Mg Tab 15 MG PO HS Depression Control #30 Ref 1 TAB Nicotine (Nicotine Patch) 1 Each Patch.td24 12 Thiamine (Vitamin B-1) 100 Mg Tab 100 MG PO DAILY Nutritional Supplement Ref 1 TAB Discontinued Medications: Norvasc (Norvasc) 2.5 Mg Tab 2.5 MG PO DAILY TAB Nicholas Garcia DO May 11, 2017 14:44
[2017-05-11] MEDS ORDERED: MORPHINE SULFATE 4 MG/ML INJ IV PRN (15:00)
== END 2017-05-11 15:30 | disposition home or self-care (01) | DRG 439 ==
LOC: NEPC 10:41 → NEDA 14:48 → OBSVTOIN 14:49 → NEPHCDU 15:58 → HOCA 05-09 20:41
PROVIDERS: ADMIT Hospitalist; ATTEND Hospitalist
PROC: 0DB68ZX Excision of Stomach, Via Natural or Artificial Opening Endoscopic, Diagnostic (ICD-10-PCS; principal; 2017-05-09 11:10)
DX: K85.90 Acute pancreatitis without necrosis or infection, unspecified (principal); R18.8 Other ascites; I50.9 Heart failure, unspecified; I11.0 Hypertensive heart disease with heart failure; K86.0 Alcohol-induced chronic pancreatitis; K29.70 Gastritis, unspecified, without bleeding; I25.10 Atherosclerotic heart disease of native coronary artery without angina pectoris; Z95.1 Presence of aortocoronary bypass graft; M10.9 Gout, unspecified; E78.5 Hyperlipidemia, unspecified; F17.210 Nicotine dependence, cigarettes, uncomplicated; D64.9 Anemia, unspecified; J44.9 Chronic obstructive pulmonary disease, unspecified; I25.2 Old myocardial infarction; E78.00 Pure hypercholesterolemia, unspecified; Z59.0 Homelessness
CPT/HCPCS: 71010; 74177; 74181; 76377; 76937; 80048; 80053; 81001; 82948; 83605; 83690; 83735; 83880; 84484; 85025; 85610; 85730; 88305; 88312; 93005; 96374; 96375; 96376; C9113; G0378; J2270; J2405; J7030; Q9967

== ENCOUNTER 2017-05-16 12:41 | Emergency (ER) | payer OTHER ==
[~2017-05-16] VITALS: Ht 170.2 cm; Wt 70.0 kg
[~2017-05-16 12:41] MED LIST changes: +ACAM1TAB5 PO; +AMLO10 PO; +ASPI-110 PO; +CARV6.252 PO; +FOLI1TAB6; +HYDR-3800 PO; +LIPI40TA PO; +LISI40TA PO; +MIRTA15 PO; +NICO1PAT; -NORV2.5T11 PO; +OXYC-392 PO; +PANT40TA3 PO; +VITA100T54 PO
[2017-05-16 12:45] VITALS: BP 170/90; PULSE 100; RESP 20; TEMP 99.9; O2SAT 99
--- NOTE | 2017-05-16 12:48 | PD ---
Physical Exam Date Seen by Provider: May 16, 2017 Time Seen by Provider: 12:47 Narrative 61 yo male with swelling and pain for the left knee. Has had this for three days. Cannot ambulate and came by [facility] to triage here. Has had fluid drained from the knee. Pain is 8/10 and worst with weight bearing. No trauma. Vitals are stable in triage. Awaiting bed placement. Data Data Last Documented VS Vital Signs Date Time Temp Pulse Resp B/P Pulse Ox O2 Delivery O2 Flow Rate FiO2 05/16/17 12:45 99.9 100 20 170/90 99 Room Air [facility] Medical Record Reviewed: Yes Supervised Visit with BARBARA: Rony Zhou May 16, 2017 12:48
[2017-05-16] MEDS ORDERED: ACETAMINOPHEN/HYDROcodone 325 MG/5 MG TAB PO ONE (13:30)
[2017-05-16] MEDS ORDERED: KETOROLAC TROMETHAMINE 60 MG/2 ML (IM) VIAL IM ONE (13:30)
[2017-05-16] MEDS ORDERED: DEXAMETHASONE SOD PHOS 4 MG/ML VIAL IM ONE (13:30)
--- NOTE | 2017-05-16 13:33 | PD ---
HPI Chief Complaint: Musculoskeletal Complaint Time Seen by Provider: 13:31 Travel History International Travel<30 days: No Contact w/Intl Traveler<30days: No Traveled to known affect area: No History of Present Illness HPI 61-year-old male presents to the emergency department for evaluation of left knee pain that has been ongoing for 3 days. He reports swelling noted to the left knee. Patient does report a history of gout. According to chart, patient presented with similar symptoms in 2014. There was no septic joint at that time. Patient was discharged prescription for anti-inflammatories and pain medication. He denies any trauma to the knee. He states that he has limited range of motion and pain with ambulating. He states he felt warm yesterday, but had no documented fever. He is not currently on anticoagulants. No history of diabetes. PFSH Past Medical History Hx Anticoagulant Therapy: Yes Asthma: No Blood Disorders: No Depression: No Heart Rhythm Problems: No Cancer: No Cardiac Catheterization: Yes (2014- ) Cardiovascular Problems: Yes (5 STENTS) High Cholesterol: Yes Chemotherapy: No Chest Pain: No Congestive Heart Failure: Yes COPD: Yes Coronary Artery Disease: Yes Diabetes: No Diminished Hearing: No Endocrine: No Gastrointestinal Disorders: Yes (Esophageal banding) Genitourinary: No Hypertension: Yes Immune Disorder: No Musculoskeletal: No Neurologic: No Psychiatric: No Reproductive: No Respiratory: Yes (COPD) Immunizations Current: No Myocardial Infarction: Yes Pancreatitis: Yes Radiation Therapy: No Sleep Apnea: No Past Surgical History Abdominal Surgery: Yes (esophageal banding) Appendectomy: Yes Body Medical Devices: CABG x 5 Cholecystectomy: Yes Coronary Artery Bypass Graft: Yes (2007 5 vessels ) Other Surgery: No Social History Alcohol Use: Yes (hx of abuse, last drink "15 days ago") Tobacco Use: Yes (11/20 PPD) Substance Use: No (hx cocaine use) Allergies-Medications (Allergen,Severity, Reaction): Coded Allergies: Dilaudid (Verified Allergy, Intermediate, Hives, 08/22/15) Reglan (Verified Allergy, Intermediate, Hives, 08/22/15) Reported Meds & Prescriptions Reported Meds & Active Scripts Active Pantoprazole (Pantoprazole Sodium) 40 Mg Tab 40 Mg PO DAILY Lisinopril 40 Mg Tab 40 Mg PO DAILY Carvedilol 6.25 Mg Tab 6.25 Mg PO BID Norvasc (Amlodipine Besylate) 10 Mg Tab 10 Mg PO DAILY Hydralazine HCl 50 Mg Tablet 2 Tab PO TID Oxycodone (Oxycodone HCl) 5 Mg Tab 5 Mg PO Q6HR PRN Reported Aspirin 81 (Aspirin) 81 Mg Tabdr 81 Mg PO DAILY Folic Acid 1 Mg Tablet 1 Mg DAILY PRN Vitamin B-1 (Thiamine HCl) 100 Mg Tab 100 Mg PO DAILY Mirtazapine 15 Mg Tab 15 Mg PO HS Acamprosate DR 333 Mg Tab 333 Mg PO TID Lipitor (Atorvastatin Calcium) 40 Mg Tab 40 Mg PO DAILY PRN Review of Systems Except as stated in HPI: all other systems reviewed are Neg Physical Exam Narrative GENERAL: Well-nourished, well-developed male patient, afebrile. SKIN: Focused skin assessment warm/dry. HEAD: Normocephalic. Atraumatic. EYES: No scleral icterus. No injection or drainage. NECK: Supple, trachea midline. No JVD or lymphadenopathy. CARDIOVASCULAR: Regular rate and rhythm without murmurs, gallops, or rubs. Left pedal pulses 2+. RESPIRATORY: Breath sounds equal bilaterally. No accessory muscle use. Lungs sounds clear to auscultation. GASTROINTESTINAL: Abdomen soft, non-tender, nondistended. MUSCULOSKELETAL: No cyanosis, or edema. Patient has joint effusion noted over left knee. He can flex the knee to approximately 90, but with pain. Patient has full sensation to the distal left lower extremity. BACK: Nontender without obvious deformity. No CVA tenderness. Data Data Last Documented VS Vital Signs Date Time Temp Pulse Resp B/P Pulse Ox O2 Delivery O2 Flow Rate FiO2 05/16/17 12:45 99.9 100 20 170/90 99 Room Air Orders Acetamin-Hydrocod 325-5 Mg ([place] 5-325 (05/16/17 13:30) Ketorolac Inj (Toradol Inj) (05/16/17 13:30) Dexamethasone Inj (Decadron Inj) (05/16/17 13:30) Splint Or Brace Apply/Monitor (05/16/17 13:30) Knee, Complete (4vws) (05/16/17 ) [facility] Medical Decision Making Medical Screen Exam Complete: Yes Emergency Medical Condition: Yes Medical Record Reviewed: Yes Interpretation(s) x-ray left knee - CONCLUSION: 1. Large suprapatellar knee joint effusion. 2. No acute fracture or dislocation. Differential Diagnosis Gout versus knee effusion versus traumatic injury versus septic joint Narrative Course 61-year-old male presents to the emergency department for evaluation of swollen left knee. Patient has history of the same in 2014 and was negative for septic joint. He can flex the knee to 90, but with pain. This is unlikely with a septic joint. Patient does have history of gout. Patient is given Toradol 60 mg IM, dexamethasone 8 mg IM, Lortab 5/325 g by mouth. X-ray of the left knee shows large suprapatellar knee joint effusion; no acute fracture or dislocation. My attending physician, Dr. Melissa, examined patient as well and agrees with plan and disposition. Patient states he does not have any pain medication at home. Patient be discharged short-term prescription for Lortab for pain as well as indomethacin. He is instructed ice and elevate. The patient was discharged in stable condition with instructions, including return instructions and follow up instructions. Diagnosis Primary Impression: Effusion, left knee Referrals: Primary Care Physician call for appointment Patient Instructions: General Instructions, Knee Effusion (ED) Additional Instructions: Wear Ismael bandage for support. Use crutches as needed. Take Lortab as directed as needed for pain. Caution this can make you drowsy so do not drive after taking. Take indomethacin as directed as needed. Follow-up with your primary care physician. Return to the emergency department for any acute worsening of symptoms. Med/Other Pt SpecificInfo: Prescription(s) given Scripts Indomethacin 50 Mg Cap50 Mg PO TID PRN (PAIN SCALE 1 TO 10) #21 CAP Ref 0 Take with food, milk, or antacids to decrease stomach adverse effects. Prov:Megan Arreguin 05/16/17 Hydrocodone-Acetaminophen (Lortab)5-325 Mg Tab1 Tab PO Q6H PRN (PAIN) #12 TAB Ref 0 Prov:Neeraj Melissa MD 05/16/17 Disposition: 01 DISCHARGE HOME Condition: Stable Megan Arreguin May 16, 2017 13:32
--- NOTE | 2017-05-16 14:34 | RADRPT ---
EXAM DATE/TIME: 05/16/2017 14:01 [facility] COMPARISON: KNEE LEFT COMPLETE (4VWS), August 03, 2015, 17:05. INDICATIONS : Left knee pain, swelling x 3 days. MEDICAL HISTORY : None. SURGICAL HISTORY : vessel surgery left knee ENCOUNTER: Initial ACUITY: 1 day PAIN SCORE: 10/10 LOCATION: Left knee FINDINGS: There is a large suprapatellar knee joint effusion. No acute fracture or dislocation of the left kne e is noted. Multiple surgical clips are again noted posterior to the left knee. CONCLUSION: 1. Large suprapatellar knee joint effusion. 2. No acute fracture or dislocation. Teodoro Galvez MD on May 16, 2017 at 14:07 Board Certified Radiologist. This report was verified electronically.
[2017-05-16] MEDS ORDERED: HYDR-3533 PO (15:00)
[2017-05-16] MEDS ORDERED: INDO50CA PO (15:01)
--- NOTE | 2017-05-16 15:21 | PD ---
Data Data Last Documented VS Vital Signs Date Time Temp Pulse Resp B/P Pulse Ox O2 Delivery O2 Flow Rate FiO2 05/16/17 12:45 99.9 100 20 170/90 99 Room Air Orders Acetamin-Hydrocod 325-5 Mg ([place] 5-325 (05/16/17 13:30) Ketorolac Inj (Toradol Inj) (05/16/17 13:30) Dexamethasone Inj (Decadron Inj) (05/16/17 13:30) Splint Or Brace Apply/Monitor (05/16/17 13:30) Knee, Complete (4vws) (05/16/17 ) Crutches (05/16/17 15:02) MDM Supervised Visit with BARBARA: Yes Narrative Course The history, exam, and medical decision-making in the associated mid-level provider note were completed with my assistance. I reviewed and agree with the findings presented. I attest that I had a [id number] encounter with the patient on the same day, and personally performed and documented my assessment and findings in the medical record. *My assessment and Findings: 61-year-old male was at a knee pain and effusion. History of gout. He was seen previously for this and it was tapped and found to have a hemorrhagic inflammatory effusion. No gout crystals were previously seen. He can range knee fair amount suggesting against septic arthritis. Recommend supportive treatment at this point. Diagnosis Primary Impression: Effusion, left knee Referrals: Primary Care Physician call for appointment Patient Instructions: General Instructions, Swollen Knee Joint (ED) Departure Forms: Tests/Procedures Additional Instruction: Wear Ismael bandage for support. Use crutches as needed. Take Lortab as directed as needed for pain. Caution this can make you drowsy so do not drive after taking. Take indomethacin as directed as needed. Follow-up with your primary care physician. Return to the emergency department for any acute worsening of symptoms. Scripts Indomethacin 50 Mg Cap50 Mg PO TID PRN (PAIN SCALE 1 TO 10) #21 CAP Ref 0 Take with food, milk, or antacids to decrease stomach adverse effects. Prov:Megan Arreguin 05/16/17 Hydrocodone-Acetaminophen (Lortab)5-325 Mg Tab1 Tab PO Q6H PRN (PAIN) #12 TAB Ref 0 Prov:Neeraj Melissa MD 05/16/17 Disposition: 01 DISCHARGE HOME Condition: Stable Neeraj Melissa MD May 16, 2017 15:21
== END 2017-05-16 15:25 | disposition home or self-care (01) ==
LOC: NEPD 12:41
DX: M25.462 Effusion, left knee (principal); I10 Essential (primary) hypertension; E78.00 Pure hypercholesterolemia, unspecified; I25.2 Old myocardial infarction; F17.200 Nicotine dependence, unspecified, uncomplicated; Z87.39 Personal history of other diseases of the musculoskeletal system and connective tissue; Z86.79 Personal history of other diseases of the circulatory system; Z87.09 Personal history of other diseases of the respiratory system; Z87.19 Personal history of other diseases of the digestive system
CPT/HCPCS: 73564; 96372; 99284; E0113; J1100; J1885

== ENCOUNTER 2017-06-30 23:39 | Observation (INO) | payer OTHER ==
[~2017-06-30] VITALS: Ht 170.2 cm; Wt 65.0 kg
[~2017-06-30 23:39] MED LIST changes: -CLON.2 PO; +HYDR-3533 PO; +INDO50CA PO; -NICO1PAT
[2017-06-30 23:50] VITALS: BP 122/68; PULSE 115; RESP 16; TEMP 97.6; O2SAT 97
--- NOTE | 2017-07-01 00:08 | PD ---
HPI Chief Complaint: Chest Pain Time Seen by Provider: 23:52 Travel History International Travel<30 days: No Contact w/Intl Traveler<30days: No Traveled to known affect area: No History of Present Illness HPI Patient is a 61-year-old male presents emergency Department with chest pain in the middle of his chest radiating into the right side of his neck. He was shortness of breath and nausea for the past few hours. The patient states that he has not had cocaine in 3 weeks. Patient does have a history of CABG, cigarette smoking. 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 Denies any trauma denies any fevers cough or congestion. States the pain is fairly heavy. PFSH Past Medical History Hx Anticoagulant Therapy: Yes Asthma: No Blood Disorders: No Depression: No Heart Rhythm Problems: No Cancer: No Cardiac Catheterization: Yes () Cardiovascular Problems: Yes (5 STENTS) High Cholesterol: Yes Chemotherapy: No Chest Pain: No Congestive Heart Failure: Yes COPD: Yes Coronary Artery Disease: Yes Diabetes: No Diminished Hearing: No Endocrine: No Gastrointestinal Disorders: Yes (Esophageal banding) Genitourinary: No Hypertension: Yes Immune Disorder: No Musculoskeletal: No Neurologic: No Psychiatric: No Reproductive: No Respiratory: Yes (COPD) Immunizations Current: No Myocardial Infarction: Yes Pancreatitis: Yes Radiation Therapy: No Sleep Apnea: No Past Surgical History Abdominal Surgery: Yes (esophageal banding) Appendectomy: Yes Body Medical Devices: CABG x 5 Cholecystectomy: Yes Coronary Artery Bypass Graft: Yes (2007 5 vessels ) Other Surgery: No Social History Alcohol Use: Yes (hx of abuse, last drink "15 days ago") Tobacco Use: Yes (1/2 PPD) Substance Use: No (hx cocaine use) Allergies-Medications (Allergen,Severity, Reaction): Coded Allergies: Dilaudid (Verified Allergy, Intermediate, Hives, 06/30/17) Reglan (Verified Allergy, Intermediate, Hives, 06/30/17) Reported Meds & Prescriptions Reported Meds & Active Scripts Active Indomethacin 50 Mg Cap 50 Mg PO TID PRN Take with food, milk, or antacids to decrease stomach adverse effects. Lisinopril 40 Mg Tab 40 Mg PO DAILY Carvedilol 6.25 Mg Tab 6.25 Mg PO BID Norvasc (Amlodipine Besylate) 10 Mg Tab 10 Mg PO DAILY Hydralazine HCl 50 Mg Tablet 2 Tab PO TID Reported Aspirin 81 (Aspirin) 81 Mg Tabdr 81 Mg PO DAILY Folic Acid 1 Mg Tablet 1 Mg DAILY PRN Vitamin B-1 (Thiamine HCl) 100 Mg Tab 100 Mg PO DAILY Lipitor (Atorvastatin Calcium) 40 Mg Tab 40 Mg PO DAILY PRN Review of Systems Except as stated in HPI: all other systems reviewed are Neg Physical Exam Narrative GENERAL: Well-developed, thin smells of cigarette smoke in no obvious distress. SKIN: Focused skin assessment warm/dry. Well-healed midline sternotomy scar. Well-healed abdominal surgical scar. HEAD: Atraumatic. Normocephalic. EYES: Pupils equal and round. No scleral icterus. No injection or drainage. ENT: No nasal bleeding or discharge. Mucous membranes pink and moist. NECK: Trachea midline. No JVD. CARDIOVASCULAR: Regular rate and rhythm. No murmur appreciated. 2+ bilateral equal pulses in all 4 extremities. RESPIRATORY: No accessory muscle use. Clear to auscultation. Breath sounds equal bilaterally. GASTROINTESTINAL: Abdomen soft, non-tender, nondistended. Hepatic and splenic margins not palpable. MUSCULOSKELETAL: No obvious deformities. No clubbing. No cyanosis. No edema. NEUROLOGICAL: Awake and alert. No obvious cranial nerve deficits. Motor grossly within normal limits. Normal speech. PSYCHIATRIC: Appropriate mood and affect; insight and judgment normal. Data Data Last Documented VS Vital Signs Date Time Temp Pulse Resp B/P Pulse Ox O2 Delivery O2 Flow Rate FiO2 07/01/17 00:14 107 17 99 Nasal Cannula 3 06/30/17 23:50 97.6 122/68 Orders Electrocardiogram (07/01/17 00:05) Ckmb (Isoenzyme) Profile (07/01/17 00:05) Complete Blood Count With Diff (07/01/17 00:05) Comprehensive Metabolic Panel (07/01/17 00:05) Magnesium (Mg) (07/01/17 00:05) Prothrombin Time / Inr (Pt) (07/01/17 00:05) Act Partial Throm Time (Ptt) (07/01/17 00:05) Troponin I (07/01/17 00:05) Chest, Single Ap (07/01/17 00:05) Ecg Monitoring (07/01/17 00:05) Iv Access Insert/Monitor (07/01/17 00:05) Oximetry (07/01/17 00:05) Oxygen Administration (07/01/17 00:05) Aspirin Chew (Aspirin Chew) (07/01/17 00:15) Sodium Chloride 0.9% Flush (Ns Flush) (07/01/17 00:15) CKMB (07/01/17 00:10) CKMB% (07/01/17 00:10) Aspirin Chew (Aspirin Chew) (07/01/17 09:00) Sodium Chlor 0.9% 1000 Ml Inj (Ns 1000 M (07/01/17 01:00) Aspirin Chew (Aspirin Chew) (07/01/17 01:30) Admit Order (Ed Use Only) (07/01/17 ) Activity Bed Rest With Brp (07/01/17 01:35) Vital Signs (Adult) Q4H (07/01/17 01:35) Cardiac Rhythm .As Directed (07/01/17 01:35) Notify Dr: Other .PRN (07/01/17 01:35) Notify Parameters (07/01/17 01:35) Resp Oxygen Nasal Cannula (07/01/17 ) Ckmb (Isoenzyme) Profile (07/01/17 02:30) Ckmb (Isoenzyme) Profile (07/01/17 05:30) Troponin I (07/01/17 02:30) Troponin I (07/01/17 05:30) Electrocardiogram (07/01/17 02:30) Electrocardiogram (07/01/17 05:30) ^ Obtain (07/01/17 01:35) Sodium Chloride 0.9% Flush (Ns Flush) (07/01/17 01:45) Sodium Chloride 0.9% Flush (Ns Flush) (07/01/17 09:00) Supervisor Pipe Manufacture / Telemetry [email or web address] (07/01/17 01:35) CKMB (07/01/17 03:00) CKMB% (07/01/17 03:00) CKMB (07/01/17 06:15) CKMB% (07/01/17 06:15) Labs Laboratory Tests Test 07/01/17 00:10 White Blood Count 7.7 TH/MM3 Red Blood Count 5.03 MIL/MM3 Hemoglobin 12.6 GM/DL Hematocrit 39.4 % Mean Corpuscular Volume 78.2 FL Mean Corpuscular Hemoglobin 25.1 PG Mean Corpuscular Hemoglobin 32.1 % Concent Red Cell Distribution Width 24.2 % Platelet Count 262 TH/MM3 Mean Platelet Volume 8.1 FL Neutrophils (%) (Auto) 50.5 % Lymphocytes (%) (Auto) 37.4 % Monocytes (%) (Auto) 10.1 % Eosinophils (%) (Auto) 0.7 % Basophils (%) (Auto) 1.3 % Neutrophils # (Auto) 3.9 TH/MM3 Lymphocytes # (Auto) 2.9 TH/MM3 Monocytes # (Auto) 0.8 TH/MM3 Eosinophils # (Auto) 0.1 TH/MM3 Basophils # (Auto) 0.1 TH/MM3 CBC Comment DIFF FINAL Differential Comment Prothrombin Time 10.9 SEC Prothromb Time International 1.0 RATIO Ratio Activated Partial 27.8 SEC Thromboplast Time Sodium Level 141 MEQ/L Potassium Level 4.8 MEQ/L Chloride Level 114 MEQ/L Carbon Dioxide Level 14.4 MEQ/L Anion Gap 13 MEQ/L Blood Urea Nitrogen 17 MG/DL Creatinine 1.40 MG/DL Estimat Glomerular Filtration 62 ML/MIN Rate Random Glucose 62 MG/DL Calcium Level 8.1 MG/DL Magnesium Level 2.0 MG/DL Total Bilirubin 0.5 MG/DL Aspartate Amino Transf 109 U/L (AST/SGOT) Alanine Aminotransferase 49 U/L (ALT/SGPT) Alkaline Phosphatase 120 U/L Total Creatine Kinase 409 U/L Creatine Kinase MB 4.7 NG/ML Creatine Kinase MB % 1.1 % Troponin I 0.02 NG/ML Total Protein 9.7 GM/DL Albumin 4.0 GM/DL [facility] Medical Decision Making Medical Screen Exam Complete: Yes Emergency Medical Condition: Yes Differential Diagnosis ACS, AMI, cocaine chest pain, poor social circumstance, Narrative Course Patient 61-year-old male roomed in the emergency department, given nitroglycerin and aspirin his pain resolved. Certainly is high risk given the smoking cocaine and prior Myocardial infarction and CAD. Initial workup shows an nonischemic EKG and negative troponin. CK-MB is minimally elevated. Discussed with him my recommendation for admission to the chest pain center for evaluation by [employer] clerk in the morning and he is agreeable. Diagnosis Primary Impression: Chest pain Additional Impressions: Coronary artery disease S/P CABG x 5 Cocaine abuse Admitting Information Admitting Physician Requests: Observation Condition: Stable Teodoro Yan J MD Jul 01, 2017 00:08
[2017-07-01 00:14] VITALS: PULSE 107; RESP 17; O2SAT 99
[2017-07-01] MEDS ORDERED: ASPIRIN 81 MG CHEW TAB PO ONE (00:15)
[2017-07-01] MEDS ORDERED: SODIUM CHLORIDE 0.9% FLUSH 10 ML FLUSH IVF PRN (00:15)
[2017-07-01 00:24] LABS: AUTOMATED NEUTROPHIL # 3.9 TH/MM3 (1.8-7.7); BASOPHIL # 0.1 TH/MM3 (0-0.2); BASOPHIL % 1.3 % (0.0-2.0); EOSINOPHIL # 0.1 TH/MM3 (0-0.4); EOSINOPHIL % 0.7 % (0.0-4.0); HEMATOCRIT 39.4 % (39.0-51.0); HEMO FLAGS DIFF FINAL; LYMPH % 37.4 % (9.0-44.0); LYMPHOCYTE # 2.9 TH/MM3 (1.0-4.8); MEAN CELL VOLUME 78.2 FL (80.0-100.0); MEAN CORPUSCULAR HEMOGLOBIN 25.1 PG (27.0-34.0); MEAN CORPUSCULAR HGB CONC 32.1 % (32.0-36.0); MONO % 10.1 % (0.0-8.0); NEUT % 50.5 % (16.0-70.0); PLATELET COUNT 262 TH/MM3 (150-450); RED BLOOD COUNT 5.03 MIL/MM3 (4.50-5.90); RED CELL DISTRIBUTION WIDTH 24.2 % (11.6-17.2); WHITE BLOOD COUNT 7.7 TH/MM3 (4.0-11.0)
[2017-07-01 00:44] LABS: APTT (PATIENT) 27.8 SEC (24.3-30.1); PROTHROMBIN TIME - PATIENT 10.9 SEC (9.8-11.6)
[2017-07-01 00:46] LABS: ALKALINE PHOSPHATASE 120 U/L (45-117); ALT (GPT) 49 U/L (12-78); ANION GAP 13 MEQ/L (5-15); AST (GOT) 109 U/L (15-37); BICARBONATE 14.4 MEQ/L (21.0-32.0); BLOOD UREA NITROGEN 17 MG/DL (7-18); CHLORIDE 114 MEQ/L (98-107); CREATINE KINASE 409 U/L (39-308); GLOMERULAR FILTRATION RATE 62 ML/MIN (>89); POTASSIUM 4.8 MEQ/L (3.5-5.1); SODIUM (NA) 141 MEQ/L (136-145); TOTAL BILIRUBIN ADULT 0.5 MG/DL (0.2-1.0)
[2017-07-01 00:59] LABS: CKMB 4.7 NG/ML (0.5-3.6)
[2017-07-01] MEDS ORDERED: SODIUM CHLOR 0.9% 1000 ML INJ 1,000 ML IV ONE (01:00)
--- NOTE | 2017-07-01 01:18 | RADRPT ---
EXAM DATE/TIME: 07/01/2017 00:03 [facility] COMPARISON: No previous studies available for comparison. INDICATIONS : Chest pain. MEDICAL HISTORY : Hypertension. Chronic obstructive pulmonary disease. ETOH SURGICAL HISTORY : Appendectomy. Cholecystectomy. CABG ENCOUNTER: Initial ACUITY: 1 day PAIN SCORE: 6/10 LOCATION: Bilateral chest FINDINGS: A single view of the chest demonstrates the lungs to be symmetrically aerated without evidence of mas s, infiltrate or effusion. Status post median sternotomy. The cardiomediastinal contours are unremark able. Osseous structures are intact. CONCLUSION: No acute disease. Status post CABG. Roverto Bobby MD on July 01, 2017 at 1:16 Board Certified Radiologist. This report was verified electronically.
[2017-07-01] MEDS ORDERED: ASPIRIN 81 MG CHEW TAB ONE (01:30)
[2017-07-01] MEDS ORDERED: SODIUM CHLORIDE 0.9% FLUSH 10 ML FLUSH IV FLUSH PRN (01:45)
[2017-07-01] MEDS ORDERED: NITROGLYCERIN 2% OINT 1 GM PACKET TOPICAL ONE (02:15)
[2017-07-01] MEDS ORDERED: NITROGLYCERIN 0.4 MG SL 25 TABS/BTL SL ONE (02:15)
[2017-07-01 03:15] VITALS: BP 99/56; PULSE 103; RESP 16; O2SAT 100
[2017-07-01 03:45] VITALS: BP 92/55; PULSE 98; RESP 18; TEMP 98.2; O2SAT 98
[2017-07-01 03:47] LABS: CREATINE KINASE 299 U/L (39-308)
[2017-07-01 07:00] LABS: CREATINE KINASE 256 U/L (39-308)
[2017-07-01 07:13] LABS: CKMB 3.8 NG/ML (0.5-3.6)
[2017-07-01] MEDS ORDERED: ONDANSETRON HCL 4 MG/2 ML VIAL IV PRN (07:30)
[2017-07-01] MEDS ORDERED: NITROGLYCERIN 0.4 MG SL 25 TABS/BTL SL PRN (07:30)
[2017-07-01] MEDS ORDERED: ACETAMINOPHEN 500 MG CPLT PO PRN (07:30)
[2017-07-01 08:09] VITALS: O2SAT 98
--- NOTE | 2017-07-01 08:27 | HHI.HP ---
HPI Primary Care Physician [facility] Chief Complaint Chest pain History of Present Illness 61-year-old male with history of coronary artery disease including CABG 4 presents to emergency room for further evaluation of chest pain. Onset last evening 10:30 PM. Location left anterior chest. Characterized as ingestion, discomfort came on quickly after laying down. Radiation to left side of neck. Duration 45 hours. Associated symptoms included nausea, diaphoresis, and shallow breathing. No known precipitating or relieving factors. Did not hurt to take a deep breath. No particular movement or position may pain better or worse. Reports similar pain with first heart attack and prior to requiring CABG. Review of Systems General: No fatigue,weakness, fever, chills, or recent illness. Has been his general state of health. Reports using cocaine 2 weeks ago. HEENT: No FLYNN, no vision changes, no dysphasia CV: As stated above. Denies any current chest pain or pressure. No palpitations , intermittent leg pain, or dizziness. No exertional chest pain regularly and does not require nitroglycerin sublingual when necessary. RESP: No SOB, cough, wheeze, or recent URI. History of COPD although states he is not prescribed any inhalers. GI: History of esophageal varices and alcohol induced pancreatitis. Endorses he has decreased his alcohol intake. No nausea, vomiting, bowel changes, diarrhea, constipation, pain, distention, melena, blood in the stool, or hematemesis. No change in appetite, no unintentional weight gain or weight loss. : No dysuria EXT: No lower leg edema, no paraesthesias MS: No discomfort or change in ROM NEURO: No difficulty with balance, LOC, motor/sensory deficits PSYCH: No anxiety, depression, or situation stress Past Family Social History Allergies: Coded Allergies: Dilaudid (Verified Allergy, Intermediate, Hives, 06/30/17) Reglan (Verified Allergy, Intermediate, Hives, 06/30/17) Past Medical History CAD, ND (1998),hypertension, COPD, gout, EtOH pancreatitis, esophageal varices, hyperlipidemia Past Surgical History CABG 4 (2007), cholecystectomy Reported Medications Active Indomethacin 50 Mg Cap 50 Mg PO TID PRN Take with food, milk, or antacids to decrease stomach adverse effects. Lisinopril 40 Mg Tab 40 Mg PO DAILY Carvedilol 6.25 Mg Tab 6.25 Mg PO BID Norvasc (Amlodipine Besylate) 10 Mg Tab 10 Mg PO DAILY Hydralazine HCl 50 Mg Tablet 2 Tab PO QD Aspirin 81 (Aspirin) 81 Mg Tabdr 81 Mg PO DAILY Folic Acid 1 Mg Tablet 1 Mg DAILY Vitamin B-1 (Thiamine HCl) 100 Mg Tab 100 Mg PO DAILY Lipitor (Atorvastatin Calcium) 40 Mg Tab 40 Mg PO DAILY Active Ordered Medications Current Medications Medications (Trade) Dose Ordered Sig/Lino Route Start Time Stop Time Status Last Admin (Aspirin Chew) 162 mg DAILY CHEW 07/01/17 09:00 07/01/17 01:25 (NS Flush) 2 ml UNSCH PRN IV FLUSH 07/01/17 01:45 (NS Flush) 2 ml BID IV FLUSH 07/01/17 09:00 (Tylenol) 500 mg Q4H PRN PO 07/01/17 07:30 (Zofran Inj) 4 mg Q6H PRN IV 07/01/17 07:30 (Nitrostat Sl) 0.4 mg Q5M PRN SL 07/01/17 07:30 Family History Noncontributory for early onset cardiovascular disease Social History Known CAD, hypertension, and hyperlipidemia. No known diabetes Tobacco use 1/2 pack/daily, alcohol use 48 beer ounces/daily. Occasional cocaine uselast used 2 weeks ago. Walks 1 mile daily. [facility] Disabled. Past cardiac testing 07/26/2015 Lexiscan-Fixed defect beginning in mid ventricular wall extending to apex there is minimal redistribution adjacent to this extending towards te base. There is asymmetric fixed defect in the interior wall beginning in mid- wall extending to base. EF 40% with global hypokinesis. 07/27/2015 Cardiac Catheterization-(Dr. Holder) SUMMARY 1. Threevessel [place] coronary artery disease. 2. PULIDO to LAD, SVG to diagonal, SVG to obtuse marginal, SVG to PDA all are patent. 3. Normal LV filling pressure. 4. Normal gradient across the aortic valve. RECOMMENDATIONS the patient has all patent grafts and no obstructive coronary artery disease. Can continue on medical therapy for his coronary artery disease. 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 No recent cardiac testing. Lasting toll bridge operator appointment 1 month ago. Physical Exam Vital Signs Vital Signs Date Time Temp Pulse Resp B/P Pulse Ox O2 Delivery O2 Flow Rate FiO2 07/01/17 03:45 98.2 98 18 92/55 98 07/01/17 03:15 103 16 99/56 100 Room Air 07/01/17 00:14 107 17 99 Nasal Cannula 3 07/01/17 00:14 97 Nasal Cannula 3 06/30/17 23:50 97.6 115 16 122/68 97 Physical Exam GENERAL: Alert WN, WD, NAD, thin, pleasant, male HEAD: NC, AT CV: RRR, without murmur, rub, gallop, no JVD, S1-S2 no S3-S4. No carotid or femoral bruits. RESP: Clear lungs throughout bilateral, no crackles, wheeze, rhonchi, symmetrical chest rise, nonlabored, able to speak in full sentences ABD: Soft, NT, ND, no masses, positive bowel tones BACK: No CVAT, no scoliosis EXT: Pulses +24, no dependent edema MS: Normal tone 4 extremities, nontender, no obvious deformities, full range of motion NEURO: CN II through CN XII grossly intact, motor strength 5/5 PSYCH: A+O 3, pleasant affect, appropriate speech, appropriate mood and affect , insight and judgment SKIN: Mid chest surgical scar, Normal turgor, normal texture, no lesions, no rashes Laboratory Laboratory Tests Test 07/01/17 07/01/17 07/01/17 00:10 03:00 06:15 White Blood Count 7.7 Red Blood Count 5.03 Hemoglobin 12.6 Hematocrit 39.4 Mean Corpuscular Volume 78.2 Mean Corpuscular Hemoglobin 25.1 Mean Corpuscular Hemoglobin 32.1 Concent Red Cell Distribution Width 24.2 Platelet Count 262 Mean Platelet Volume 8.1 Neutrophils (%) (Auto) 50.5 Lymphocytes (%) (Auto) 37.4 Monocytes (%) (Auto) 10.1 Eosinophils (%) (Auto) 0.7 Basophils (%) (Auto) 1.3 Neutrophils # (Auto) 3.9 Lymphocytes # (Auto) 2.9 Monocytes # (Auto) 0.8 Eosinophils # (Auto) 0.1 Basophils # (Auto) 0.1 CBC Comment DIFF FINAL Differential Comment Prothrombin Time 10.9 Prothromb Time International 1.0 Ratio Activated Partial 27.8 Thromboplast Time Sodium Level 141 Potassium Level 4.8 Chloride Level 114 Carbon Dioxide Level 14.4 Anion Gap 13 Blood Urea Nitrogen 17 Creatinine 1.40 Estimat Glomerular Filtration 62 Rate Random Glucose 62 Calcium Level 8.1 Magnesium Level 2.0 Total Bilirubin 0.5 Aspartate Amino Transf 109 (AST/SGOT) Alanine Aminotransferase 49 (ALT/SGPT) Alkaline Phosphatase 120 Total Creatine Kinase 409 299 256 Creatine Kinase MB 4.7 4.0 3.8 Creatine Kinase MB % 1.1 Troponin I 0.02 0.03 0.03 Total Protein 9.7 Albumin 4.0 Result Diagram: 07/01/17 0010 07/01/17 0010 Imaging Last Impressions Chest X-Ray 07/01/17 0005 Signed Impressions: Service Date/Time: Saturday, July 01, 2017 00:03 - CONCLUSION: No acute disease. Status post CABG. Roverto Bobby MD Myocardial Perfusion Scan Nuc Med 07/01/17 0000 Signed Impressions: Service Date/Time: Saturday, July 01, 2017 10:17 - CONCLUSION: 1. Partially reversible moderate size inferior wall defect which could indicate mild ischemia 2. Normal calculated ejection fraction of 58%% with questionable mild hypokinesis along the ductal wall. RISK CATEGORY: Intermediate (1-3%% Annual Mortality Rate) Nicholas Medina MD Course EKG Normal sinus rhythm, criteria for LVH, nonspecific T-wave changes Assessment and Plan Assessment and Plan #1 Chest painadmitted to chest pain center. Ruled out with 3 sets of EKGs, cardiac enzymes, and monitored overnight. Will be seen and evaluated by Dr. Gaurav Pelletier. Discussed the likelihood of repeating chemical stress test. Patient agreeable to plan of care. Further disposition to follow. #2 History of CAD-continue Coreg, Norvasc, aspirin, and Lipitor #3 Hypertensioncontinue lisinopril #4 Tobacco usestrongly encouraged and stressed importance of tobacco sensation. Encouraged him to quit smoking. #5 Cocaine usecounseled risk of cocaine use, risk of ND, and even . #6 Alcohol abuse-counseled on risk of alcohol abuse, especially with past history of esophageal varices and pancreatitis. Encouraged him to consider counseling for alcohol abuse. 12:35 Seen and evaluated by Dr. Gaurav Pelletier. Lexiscan results reviewed. Plan to consult cardiology and hospitalist for abnormal Lexiscan. 14:00 Consulting toll bridge operator, Dr. Taylor, has assessed patient and provided recommendation. Will discharge this afternoon with H2 tomas as recommended with follow with [facility]. Consult for hospitalist cancelled and hospitalist PA notified. Misti John Jul 01, 2017 08:27
[2017-07-01] MEDS ORDERED: ATORVASTATIN 40 MG TAB PO PRN (08:30)
[2017-07-01] MEDS ORDERED: PANTOPRAZOLE SOD 40 MG DELAYED RELEASE TAB PO SCH (09:00)
[2017-07-01] MEDS ORDERED: CARVEDILOL 6.25 MG TAB PO SCH (09:00)
[2017-07-01] MEDS ORDERED: LISINOPRIL 20 MG TAB PO SCH (09:00)
[2017-07-01] MEDS ORDERED: THIAMINE HCL 100 MG TAB PO SCH (09:00)
[2017-07-01] MEDS ORDERED: SODIUM CHLORIDE 0.9% FLUSH 10 ML FLUSH IV FLUSH SCH (09:00)
[2017-07-01] MEDS ORDERED: CALCIUM CARBONATE 500 MG CHEWABLE TAB CHEW PRN (09:00)
[2017-07-01] MEDS ORDERED: ASPIRIN 81 MG CHEW TAB CHEW SCH (09:00)
[2017-07-01] MEDS ORDERED: REGADENOSON INJ 0.4 MG/5 ML SYR ONE (10:46)
--- NOTE | 2017-07-01 12:02 | RADRPT ---
EXAM DATE/TIME: 07/01/2017 10:17 [place] COMPARISON: MYOCARDIAL PERF PHARM SPECT, GATED W/EF, July 25, 2015, 10:24. INDICATIONS : Mid chest pain for one day. Angina. DOSE: 26.3 mCi Tc99m Myoview at stress. 8.6 mCi Tc99m Myoview at rest. 0.4 mg Lexiscan STRESS SYMPTOMS: Shortness of breath and flush. EJECTION FRACTION: 58% MEDICAL HISTORY : Chronic obstructive pulmonary disease. Hypertension. Hepatitis C. SURGICAL HISTORY : CABG Appendectomy. ENCOUNTER: Initial ACUITY: 1 day PAIN SCALE: 8/10 LOCATION: Midsternal chest TECHNIQUE: The patient underwent pharmacologic stress with infusion of prescribed dose. Continuous ECG tracing was monitored during stress. Gated SPECT imaging was performed after stress and conventional SPECT i maging was performed at rest. The examination was performed on a SPECT/CT scanner, both attenuation and non-corrected datasets were reviewed. FINDINGS: DISTRIBUTION: The maximum perfused segment at stress is in the septal wall. There is a summed stress score of 11. PERFUSION STUDY: There is a moderate size partially reversible defect involving the inferior wall. GATED STUDY: There is a normal calculated ejection fraction of 58%. There is questionable mild hypokinesis involvi ng the apical wall. CONCLUSION: 1. Partially reversible moderate size inferior wall defect which could indicate mild ischemia 2. Normal calculated ejection fraction of 58% with questionable mild hypokinesis along the ductal wal l. RISK CATEGORY: Intermediate (1-3% Annual Mortality Rate) Nicholas Medina MD on July 01, 2017 at 11:55 Board Certified Radiologist. This report was verified electronically.
[2017-07-01 12:04] VITALS: BP 145/70; PULSE 88
[2017-07-01 12:28] VITALS: BP 145/70; PULSE 88; RESP 18; TEMP 96.8; O2SAT 95
[2017-07-01] MEDS ORDERED: SODIUM CHLOR 0.9% 1000 ML INJ 1,000 ML IV SCH (13:00)
[2017-07-01] MEDS ORDERED: LIPI40TA PO (13:09)
--- NOTE | 2017-07-01 13:15 | TR ---
Date Performed: 07/01/2017 Time Performed: 10:58:55 DOCTOR: Gaurav Pelletier DRUG LIST: CLINICAL HISTORY: ANGINA CHEST PAIN REASON FOR TEST: Angina REASON FOR ENDING: OBSERVATION: CONCLUSION: Lexiscan stress test was performed under standard four minute protocol. Radionuclid e was injected one minute prior to ending the test. No electrocardiographic abormalities were present to suggest ischemia. Nuclear imaging and interpretation are pending. COMMENTS:
--- NOTE | 2017-07-01 13:18 | EKG ---
Date Performed: 07/01/2017 Time Performed: 06:06:19 PTAGE: 61 years EKG: Sinus rhythm WITH SINUS ARRHYTHMIA VOLTAGE CRITERIA FOR LVH NONSPECIFIC T-WAVE ABNORMALITY PROLONGED QT INTERVAL ABNORMAL ECG PREVIOUS TRACING : 07/01/2017 03.40 Since previous tracing, no significant change noted DOCTOR: Gaurav Pelletier Interpretating Date/Time 07/01/2017 13:17:17
--- NOTE | 2017-07-01 13:20 | EKG ---
Date Performed: 07/01/2017 Time Performed: 03:40:06 PTAGE: 61 years EKG: Sinus rhythm LEFT VENTRICULAR HYPERTROPHY AND ST-T CHANGE ABNORMAL ECG PREVIOUS TRACING : 05/07/2017 12.26 Since previous tracing, no significant change noted DOCTOR: Gaurav Pelletier Interpretating Date/Time 07/01/2017 13:19:07
--- NOTE | 2017-07-01 13:24 | EKG ---
Date Performed: 07/01/2017 Time Performed: 02:59:04 PTAGE: 61 years EKG: SINUS TACHYCARDIA POSSIBLE LEFT ATRIAL ENLARGEMENT LEFT VENTRICULAR HYPERTROPHY AND ST-T CH MORE ABNORMAL ECG Since PREVIOUS TRACING , no significant change noted DOCTOR: Gaurav Pelletier Interpretating Date/Time 07/01/2017 13:22:31
--- NOTE | 2017-07-01 13:34 | PD.CONS ---
HPI Consult Requested By Reason for Consult Chest pain and abnormal nuclear stress test. Primary Care Physician [facility] History of Present Illness The patient is a 61-year-old black gentleman who I am seeing for chest discomfort. I have reviewed the hospital records and spoken with him. The patient had quadruple bypass in 2007 with left internal mammary to the LAD and vein grafts to obtuse marginal, diagonal and posterior descending. Catheterization done July 2015 for chest discomfort and an abnormal nuclear stress test showed patency of all bypass grafts. The patient does drink 48 ounces of beer per day, occasionally use cocaine and smokes a half pack per day. He notes mild stable dyspnea. The patient noted that after lying down last night he felt a burning in his throat which then spread to his chest. This was not pleuritic or positional and lasted a minimum of 5 hours without change. He is pain-free today. He notes no other cardiac symptomatology. Review of Systems Eyes: COMPLAINS OF: Change in vision Respiratory: DENIES: Cough, Snoring, Wheezing Cardiovascular: COMPLAINS OF: Chest pain Genitourinary: DENIES: Urinary incontinence Neurologic: DENIES: Tingling or numbness Musculoskeletal: COMPLAINS OF: Joint pain Psychiatric: DENIES: Anxiety, Depression Past Family Social History Allergies: Coded Allergies: Dilaudid (Verified Allergy, Intermediate, Hives, 06/30/17) Reglan (Verified Allergy, Intermediate, Hives, 06/30/17) Past Medical History Hypertension Hyperlipidemia Esophageal varices Hepatitis C Cocaine and alcohol abuse Tobacco disorder Alcoholic pancreatitis Gout Cardiac as above Past Surgical History Bypass surgery Cholecystectomy Appendectomy Reported Medications Reported Meds & Active Scripts Active Indomethacin 50 Mg Cap 50 Mg PO TID PRN Take with food, milk, or antacids to decrease stomach adverse effects. Lisinopril 40 Mg Tab 40 Mg PO DAILY Carvedilol 6.25 Mg Tab 6.25 Mg PO BID Norvasc (Amlodipine Besylate) 10 Mg Tab 10 Mg PO DAILY Hydralazine HCl 50 Mg Tablet 2 Tab PO TID Reported Lipitor (Atorvastatin Calcium) 40 Mg Tab 40 Mg PO HS Aspirin 81 (Aspirin) 81 Mg Tabdr 81 Mg PO DAILY Folic Acid 1 Mg Tablet 1 Mg DAILY Vitamin B-1 (Thiamine HCl) 100 Mg Tab 100 Mg PO DAILY Active Ordered Medications Current Medications Medications (Trade) Dose Ordered Sig/Lino Route Start Time Stop Time Status Last Admin (Aspirin Chew) 162 mg DAILY CHEW 07/01/17 09:00 07/01/17 01:25 (NS Flush) 2 ml UNSCH PRN IV FLUSH 07/01/17 01:45 (NS Flush) 2 ml BID IV FLUSH 07/01/17 09:00 07/01/17 12:05 (Tylenol) 500 mg Q4H PRN PO 07/01/17 07:30 (Zofran Inj) 4 mg Q6H PRN IV 07/01/17 07:30 (Nitrostat Sl) 0.4 mg Q5M PRN SL 07/01/17 07:30 (Norvasc) 10 mg DAILY PO 07/01/17 09:00 07/01/17 12:07 (Lipitor) 40 mg DAILY PRN PO 07/01/17 08:30 UNV (Coreg) 6.25 mg BID PO 07/01/17 09:00 07/01/17 12:06 (Vitamin B1) 100 mg DAILY PO 07/01/17 09:00 07/01/17 12:06 (Prinivil) 40 mg DAILY PO 07/01/17 09:00 07/01/17 12:06 (Protonix) 40 mg DAILY PO 07/01/17 09:00 07/01/17 12:10 Calcium Carbonate 500 mg 500 mg Q2H PRN CHEW 07/01/17 09:00 (NS 1000 ml Inj) 1,000 ml @ 84 mls/hr [id number] IV 07/01/17 13:00 UNV (Lipitor) 40 mg HS PO 07/01/17 21:00 UNV Family History Noncontributory Social History The patient is single. He drinks 40 ounces of beer per day, smokes a half pack per day and occasionally uses cocaine. Physical Exam Vital Signs Vital Signs Date Time Temp Pulse Resp B/P Pulse Ox O2 Delivery O2 Flow Rate FiO2 07/01/17 12:28 96.8 88 18 145/70 95 07/01/17 12:04 88 145/70 07/01/17 08:09 98 21 07/01/17 03:45 98.2 98 18 92/55 98 07/01/17 03:15 103 16 99/56 100 Room Air 07/01/17 00:14 107 17 99 Nasal Cannula 3 07/01/17 00:14 97 Nasal Cannula 3 06/30/17 23:50 97.6 115 16 122/68 97 Physical Exam CONSTITUTIONAL: A well-developed, well-nourished patient in no apparent distress. EYES: Conjunctiva normal. Sclera nonicteric. Eyelids normal. No xanthelasma. HEENT: Oral mucosa normal without pallor or cyanosis. NECK: JVD less than or equal to 5 cm of water. RESPIRATORY: Breathing is unlabored without accessory muscle use. Normal breath sounds. No wheezes, rales or rubs present. CARDIOVASCULAR: Normal point of maximal impulse. No cardiac thrill present. Regular rate and rhythm. No gallops, rubs or clicks present. 1/6 early peaking systolic ejection murmur at the base. PULSES: Carotid arteries: Normal pulses bilaterally without bruits. Palmar arteries: Radial pulses 2+ bilaterally Abdominal aorta: Aortic pulses normal without bruits or enlargement. Femoral arteries: 1-2+ bilaterally. Soft right bruit present. Pedal pulses: 1-2+ bilaterally PERIPHERAL CIRCULATION: No cyanosis, clubbing, edema or varicosities present. GASTROINTESTINAL: Normal bowel sounds. Nontender without rigidity or guarding. No masses present. No hepatomegaly. Liver is nontender to palpation and spleen is nonpalpable. Digital rectal exam-not indicated for cardiovascular exam. MUSCULOSKELETAL: No kyphosis or scoliosis present. The patient is not ambulated. Able to undergo rehabilitation. SKIN: Skin turgor is normal. No rashes. NEUROLOGIC: Grossly oriented to person, place and time. Normal mood and appropriate affect. Laboratory Laboratory Tests Test 07/01/17 07/01/17 07/01/17 00:10 03:00 06:15 White Blood Count 7.7 Red Blood Count 5.03 Hemoglobin 12.6 Hematocrit 39.4 Mean Corpuscular Volume 78.2 Mean Corpuscular Hemoglobin 25.1 Mean Corpuscular Hemoglobin 32.1 Concent Red Cell Distribution Width 24.2 Platelet Count 262 Mean Platelet Volume 8.1 Neutrophils (%) (Auto) 50.5 Lymphocytes (%) (Auto) 37.4 Monocytes (%) (Auto) 10.1 Eosinophils (%) (Auto) 0.7 Basophils (%) (Auto) 1.3 Neutrophils # (Auto) 3.9 Lymphocytes # (Auto) 2.9 Monocytes # (Auto) 0.8 Eosinophils # (Auto) 0.1 Basophils # (Auto) 0.1 CBC Comment DIFF FINAL Differential Comment Prothrombin Time 10.9 Prothromb Time International 1.0 Ratio Activated Partial 27.8 Thromboplast Time Sodium Level 141 Potassium Level 4.8 Chloride Level 114 Carbon Dioxide Level 14.4 Anion Gap 13 Blood Urea Nitrogen 17 Creatinine 1.40 Estimat Glomerular Filtration 62 Rate Random Glucose 62 Calcium Level 8.1 Magnesium Level 2.0 Total Bilirubin 0.5 Aspartate Amino Transf 109 (AST/SGOT) Alanine Aminotransferase 49 (ALT/SGPT) Alkaline Phosphatase 120 Total Creatine Kinase 409 299 256 Creatine Kinase MB 4.7 4.0 3.8 Creatine Kinase MB % 1.1 Troponin I 0.02 0.03 0.03 Total Protein 9.7 Albumin 4.0 Result Diagram: 07/01/17 0010 07/01/17 0010 Imaging Last 48 hours Impressions Chest X-Ray 07/01/17 0005 Signed Impressions: Service Date/Time: Saturday, July 01, 2017 00:03 - CONCLUSION: No acute disease. Status post CABG. Roverto Bobby MD Myocardial Perfusion Scan Nuc Med 07/01/17 0000 Signed Impressions: Service Date/Time: Saturday, July 01, 2017 10:17 - CONCLUSION: 1. Partially reversible moderate size inferior wall defect which could indicate mild ischemia 2. Normal calculated ejection fraction of 58%% with questionable mild hypokinesis along the ductal wall. RISK CATEGORY: Intermediate (1-3%% Annual Mortality Rate) Nicholas Medina MD Assessment and Plan Assessment and Plan Problems: Chest painthe patient had very prolonged chest pain. His EKG has shown sinus rhythm with left ventricular hypertrophy with repolarization abnormalities which he has had before. Cardiac enzymes have been negative. He states his discomfort is identical to that which brought him in for catheterization 2 years ago at which time his bypasses were all patent. I'm not convinced this is cardiac. Given the fact that this occurred after lying down it could also be reflux or alcoholic gastritis/esophagitis. Coronary artery disease Hypertension Hyperlipidemia Substance abuse Recommendations: I would not pursue catheterization at this point in time given the very prolonged nature of the discomfort and negative cardiac enzymes. This may well be GI. I would continue his home medications and have strongly recommended abstinence from tobacco, alcohol and cocaine. Consider H2 blockers. [facility] I will be available this hospital stay only if needed. All questions were answered. Ronn Vazquez MD Jul 01, 2017 13:34
--- NOTE | 2017-07-01 14:01 | HHI.DCPOC ---
Discharge Care Plan Diagnosis: (1) Chest pain (2) Hx of coronary artery disease (3) GERD (gastroesophageal reflux disease) (4) Cocaine abuse (5) Alcohol abuse (6) Tobacco abuse (7) Abnormal nuclear stress test Goals to Promote Your Health * To prevent worsening of your condition and complications * To maintain your health at the optimal level Directions to Meet Your Goals Take your medications as prescribed Follow your dietary instruction Follow activity as directed Keep your appointments as scheduled Take your immunizations and boosters as scheduled If your symptoms worsen call your PCP, if no PCP go to Urgent Care Center or Emergency Room Smoking is Dangerous to Your Health. Avoid second hand smoke Call the 24-hour hour crisis hotline for domestic abuse at Misti John Jul 01, 2017 14:01
[2017-07-01] MEDS ORDERED: RANI150T PO (14:06)
--- NOTE | 2017-07-01 14:50 | EKG ---
Date Performed: 06/30/2017 Time Performed: 23:54:29 PTAGE: 61 years EKG: SINUS TACHYCARDIA WITH OCCASIONAL ECTOPIC PREMATURE COMPLEXES LEFT VENTRICULAR HYPERTROPHY AND ST-T CHANGE ABNORMAL ECG Since PREVIOUS TRACING , no significant change noted DOCTOR: Gaurav Pelletier Interpretating Date/Time 07/01/2017 14:49:07
[2017-07-01] MEDS ORDERED: ATORVASTATIN 40 MG TAB PO SCH (21:00)
== END 2017-07-01 18:02 | disposition home or self-care (01) ==
LOC: NEPC 23:39 → NEDA 07-01 01:38 → NEPGCP 07-01 03:27
DX: R07.89 Other chest pain (principal); R00.0 Tachycardia, unspecified; R94.31 Abnormal electrocardiogram [ECG] [EKG]; I45.81 Long QT syndrome; I49.8 Other specified cardiac arrhythmias; I25.119 Atherosclerotic heart disease of native coronary artery with unspecified angina pectoris; I11.0 Hypertensive heart disease with heart failure; I50.9 Heart failure, unspecified; I25.2 Old myocardial infarction; J44.9 Chronic obstructive pulmonary disease, unspecified; E78.5 Hyperlipidemia, unspecified; E78.00 Pure hypercholesterolemia, unspecified; M10.9 Gout, unspecified; R06.02 Shortness of breath; R11.0 Nausea; B19.20 Unspecified viral hepatitis C without hepatic coma; F14.90 Cocaine use, unspecified, uncomplicated; F10.10 Alcohol abuse, uncomplicated; F17.210 Nicotine dependence, cigarettes, uncomplicated; Z79.899 Other long term (current) drug therapy; Z79.82 Long term (current) use of aspirin; Z95.1 Presence of aortocoronary bypass graft
CPT/HCPCS: 71010; 78452; 80053; 82550; 82552; 83735; 84484; 85025; 85610; 85730; 93005; 93017; 96360; 99285; A9502; G0378; J2785; J7030

== ENCOUNTER 2017-09-25 21:33 | Inpatient (IN) | payer OTHER ==
[~2017-09-25] VITALS: Ht 170.2 cm; Wt 62.6 kg
[~2017-09-25 21:33] MED LIST changes: -ACAM1TAB5 PO; -ASPI-110 PO; +ASPI1TAB57 PO; -HYDR-3533 PO; -MIRTA15 PO; -OXYC-392 PO; -PANT40TA3 PO; +RANI150T PO
[2017-09-25 21:38] VITALS: BP 164/84; PULSE 65; RESP 16; TEMP 97.5; O2SAT 99
[2017-09-25] MEDS ORDERED: SODIUM CHLORID 0.9% 500 ML INJ 500 ML IV ONE (22:00)
[2017-09-25 22:03] VITALS: O2SAT 99
[2017-09-25 22:15] LABS: AUTOMATED NEUTROPHIL # 2.7 TH/MM3 (1.8-7.7); BASOPHIL # 0.1 TH/MM3 (0-0.2); EOSINOPHIL % 0.7 % (0.0-4.0); HEMATOCRIT 35.9 % (39.0-51.0); HEMO FLAGS DIFF FINAL; LYMPH % 33.6 % (9.0-44.0); LYMPHOCYTE # 1.8 TH/MM3 (1.0-4.8); MEAN CELL VOLUME 92.6 FL (80.0-100.0); MEAN CORPUSCULAR HEMOGLOBIN 30.5 PG (27.0-34.0); MONO % 13.5 % (0.0-8.0); NEUT % 51.2 % (16.0-70.0); PLATELET COUNT 182 TH/MM3 (150-450); RED BLOOD COUNT 3.88 MIL/MM3 (4.50-5.90); WHITE BLOOD COUNT 5.3 TH/MM3 (4.0-11.0)
--- NOTE | 2017-09-25 22:25 | PD ---
HPI Chief Complaint: Abdominal Pain Time Seen by Provider: 21:41 Travel History International Travel<30 days: No Contact w/Intl Traveler<30days: No Traveled to known affect area: No History of Present Illness HPI The patient is a 62 year old male who presents to the [facility] emergency department with a history of abdominal pain that he reports began 2 days ago. He reports the pain is in the lower abdomen. He reports that it radiates through to his back. The patient denies ever having a pain like this previously. He reports that he does have a history of pancreatitis diagnosed many years ago and, kidney biopsy to assist in 1998. The patient reports that he's had diarrhea for the last 2 days that is occurred approximately 3 times per day. The patient reports that he has been drinking alcohol to try to help with the pain. He normally drinks 2 beers every other day. The patient reports having generalized weakness and a sensation of feeling lightheaded. The patient reports that he has had dysuria without urinary frequency or urgency. On review of systems otherwise the patient denies any recent known fevers, cough or congestion, neck pain, chest pain, shortness of breath, vomiting, or neurologic symptoms. [facility] Past Medical History Narrative Medical The patient's past medical history is significant for pancreatitis, located by a pseudocyst in 1998, coronary artery disease status post coronary artery bypass grafting in 2007, prior history of myocardial infarction, COPD, gout, alcohol abuse, esophageal there is, hyperlipidemia. Hx Anticoagulant Therapy: Yes Asthma: No Blood Disorders: No Depression: No Heart Rhythm Problems: No Cancer: No Cardiac Catheterization: Yes (2014- ) Cardiovascular Problems: Yes (5 STENTS) High Cholesterol: Yes Chemotherapy: No Chest Pain: No Congestive Heart Failure: No COPD: Yes Coronary Artery Disease: Yes Diabetes: No Diminished Hearing: No Endocrine: No Gastrointestinal Disorders: Yes (Esophageal banding) Genitourinary: No Hypertension: Yes Immune Disorder: No Musculoskeletal: No Neurologic: No Psychiatric: No Reproductive: No Respiratory: Yes (COPD) Immunizations Current: No Myocardial Infarction: Yes Pancreatitis: Yes Radiation Therapy: No Sleep Apnea: No Past Surgical History Narrative Surgical The patient's past surgical history is significant for coronary artery bypass grafting of 5 vessels in 2007, cholecystectomy, laparotomy related to a pseudocyst. Abdominal Surgery: Yes (esophageal banding) Appendectomy: Yes Body Medical Devices: CABG x 5 Cardiac Surgery: Yes (CABGx5 ) Cholecystectomy: Yes Coronary Artery Bypass Graft: Yes (2008 5 vessels ) Other Surgery: No Social History Alcohol Use: Yes (EVERY OTHER DAY2 beers) Tobacco Use: Yes (1/2 PPD) Substance Use: No (hx cocaine use) Allergies-Medications (Allergen,Severity, Reaction): Coded Allergies: hydromorphone (Unverified Allergy, Intermediate, Hives, 09/25/17) metoclopramide (Unverified Allergy, Intermediate, Hives, 09/25/17) Reported Meds & Prescriptions Reported Meds & Active Scripts Active Lisinopril 40 Mg Tab 40 Mg PO DAILY Carvedilol 6.25 Mg Tab 6.25 Mg PO BID Hydralazine HCl 50 Mg Tablet 2 Tab PO TID Reported Lipitor (Atorvastatin Calcium) 40 Mg Tab 40 Mg PO HS Aspirin 81 (Aspirin) 81 Mg Tabdr 81 Mg PO DAILY Folic Acid 1 Mg Tablet 1 Mg DAILY Vitamin B-1 (Thiamine HCl) 100 Mg Tab 100 Mg PO DAILY Review of Systems Except as stated in HPI: all other systems reviewed are Neg General / Constitutional: No: Fever Eyes: No: Visual changes HENT: Positive: Lightheadedness, No: Headaches Cardiovascular: No: Chest Pain or Discomfort Respiratory: No: Shortness of Breath Gastrointestinal: Positive: Diarrhea, Abdominal Pain, Changes in Bowel Habits, No: Nausea, Vomiting, Hematemesis, Hematochezia, Indigestion, Loss of Appetite Genitourinary: Positive: Dysuria, No: Urgency, Frequency Musculoskeletal: No: Pain Skin: No Rash Neurologic: Positive: Weakness (generalized weakness), No: Focal Abnormalities , Change in Mentation, Slurred Speech, Sensory Disturbance Psychiatric: No: Depression Endocrine: No: Polydipsia Hematologic/Lymphatic: No: Easy Bruising Physical Exam Narrative General: The patient is a well-developed well-nourished male in no acute distress. Head and Neck exam: Head is normocephalic atraumatic. Eyes: EOMI, pupils are equal round and reactive to light. Nose: Midline septum with pink mucous membranes Mouth: Dentition unremarkable. Moist mucus membranes. Posterior oropharynx is not erythematous. No tonsillar hypertrophy. Uvula midline. Airway patent. Neck: No palpable lymphadenopathy. No nuchal rigidity. No thyromegaly. Cardiovascular: Regular rate and rhythm without murmurs, gallops, or rubs. Lungs: Clear to auscultation bilaterally. No wheezes, rhonchi, or rales. Abdomen: Soft, with reported discomfort on deep palpation of the suprapubic area, no other tenderness on palpation of the other quadrants of the abdomen. No guarding , rebound, or rigidity. Negative Carrasco's sign. No tenderness on palpation of McBurney's point. Extremities: No clubbing, cyanosis, or edema. 2+ pulses in all 4 extremities. No calf tenderness on palpation. Back: No spinous process tenderness to palpation. No costovertebral angle tenderness to palpation. Neurologic Exam: Grossly nonfocal. Skin Exam: No rash noted. Intact skin that is warm and dry. Data Data Last Documented VS Vital Signs Date Time Temp Pulse Resp B/P (MAP) Pulse Ox O2 Delivery O2 Flow Rate FiO2 09/25/17 22:03 99 Room Air 09/25/17 21:42 16 09/25/17 21:38 97.5 65 164/84 (110) Orders Orders Electrocardiogram (09/25/17 21:53) Complete Blood Count With Diff (09/25/17 21:53) Comprehensive Metabolic Panel (09/25/17 21:53) Troponin I (09/25/17 21:53) Lipase (09/25/17 21:53) Urinalysis - C+S If Indicated (09/25/17 21:53) Magnesium (Mg) (09/25/17 21:53) Iv Access Insert/Monitor (09/25/17 21:53) Ecg Monitoring (09/25/17 21:53) Oximetry (09/25/17 21:53) Sodium Chlorid 0.9% 500 Ml Inj (Ns 500 M (09/25/17 22:00) Ct Abd/Pel W Iv Contrast(Rout) (09/25/17 22:29) Morphine Inj (Morphine Inj) (09/25/17 22:45) Ondansetron Inj (Zofran Inj) (09/25/17 22:45) Sodium Chlorid 0.9% 500 Ml Inj (Ns 500 M (09/26/17 00:45) Iohexol 350 Inj (Omnipaque 350 Inj) (09/26/17 00:05) Admit Order (Ed Use Only) (09/26/17 01:00) Place In Observation (09/26/17 ) Vital Signs (Adult) Q4H (09/26/17:22) Activity Oob With Assistance (09/26/17:) 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 .CONTINUOUS (09/26/17:22) Intake + Output LOUISA.QSHIFT (09/26/17:22) Diet Npo (09/26/17 Breakfast) Sodium Chlor 0.9% 1000 Ml Inj (Ns 1000 M (09/26/17:22) Sodium Chloride 0.9% Flush (Ns Flush) (09/26/17 01:30) Sodium Chloride 0.9% Flush (Ns Flush) (09/26/17 09:00) Ondansetron Inj (Zofran Inj) (09/26/17 01:30) Complete Blood Count With Diff (09/27/17 06:00) Naloxone Inj (Narcan Inj) (09/26/17 01:30) Labs Laboratory Tests Test 09/25/17 22:00 White Blood Count 5.3 TH/MM3 Red Blood Count 3.88 MIL/MM3 Hemoglobin 11.8 GM/DL Hematocrit 35.9 % Mean Corpuscular Volume 92.6 FL Mean Corpuscular Hemoglobin 30.5 PG Mean Corpuscular Hemoglobin Concent 33.0 % Red Cell Distribution Width 19.0 % Platelet Count 182 TH/MM3 Mean Platelet Volume 8.6 FL Neutrophils (%) (Auto) 51.2 % Lymphocytes (%) (Auto) 33.6 % Monocytes (%) (Auto) 13.5 % Eosinophils (%) (Auto) 0.7 % Basophils (%) (Auto) 1.0 % Neutrophils # (Auto) 2.7 TH/MM3 Lymphocytes # (Auto) 1.8 TH/MM3 Monocytes # (Auto) 0.7 TH/MM3 Eosinophils # (Auto) 0.0 TH/MM3 Basophils # (Auto) 0.1 TH/MM3 CBC Comment DIFF FINAL Differential Comment Blood Urea Nitrogen 15 MG/DL Creatinine 1.31 MG/DL Random Glucose 102 MG/DL Total Protein 6.5 GM/DL Albumin 2.8 GM/DL Calcium Level 7.8 MG/DL Magnesium Level 1.9 MG/DL Alkaline Phosphatase 68 U/L Aspartate Amino Transf (AST/SGOT) 69 U/L Alanine Aminotransferase (ALT/SGPT) 29 U/L Total Bilirubin 0.3 MG/DL Sodium Level 144 MEQ/L Potassium Level 4.1 MEQ/L Chloride Level 115 MEQ/L Carbon Dioxide Level 17.0 MEQ/L Anion Gap 12 MEQ/L Estimat Glomerular Filtration Rate 67 ML/MIN Troponin I 0.02 NG/ML Lipase 39 U/L [facility] Medical Decision Making Medical Screen Exam Complete: Yes Emergency Medical Condition: Yes Medical Record Reviewed: Yes Interpretation(s) Last Impressions Gall Bladder Ultrasound 09/26/17 0000 Signed Impressions: Service Date/Time: Tuesday, September 26, 2017 01:36 - CONCLUSION: 1. Ductal dilatation as above. 2. Common duct stone cannot be identified though there is significant overlying gas. MRCP could be performed for further evaluation if clinically indicated. Thor Peter MD Abdomen/Pelvis CT 09/25/17 2229 Signed Impressions: Service Date/Time: Monday, September 25, 2017 23:56 - CONCLUSION: 1. Biliary ductal dilatation with possible distal common duct stone measuring 3 mm. MRCP could be performed for further evaluation if clinically indicated. 2. Mild small bowel ileus Thor Peter MD Differential Diagnosis Cystitis, versus pancreatitis, versus diverticulitis, versus colitis, versus dehydration, versus electrolyte arrangements Narrative Course During the course of the patients emergency department visit, the patients history, examination, and differential diagnosis were reviewed with the patient. The patient was placed on a manager cardiac cath with oximetry and frequent blood pressure monitoring. The patient had IV access obtained and blood work sent for analysis. The patient's ECG done on arrival. The patient's ECG shows a sinus bradycardia rate of 58, voltage criteria met for LVH, nonspecific T- wave abnormalities, no acute ST segment elevation, QRS duration is 105 ms, QTC 509 ms. T waves are inverted in V2, V1, aVL. The patient was initially provided normal saline IV fluids, morphine for pain, Zofran for nausea. The patients laboratory studies were reviewed and remarkable for a white count of 5.3, hemoglobin 11.8, platelets 182 with 13.5 monocytes. CMP is remarkable for a chloride of 1:15, CO2 17, creatinine 1.31, calcium 7.8, AST 69, lipase 39 , urinalysis is unremarkable. Radiology studies were reviewed and remarkable for a CT scan of the abdomen and pelvis that shows biliary ductal dilatation with possible distal common duct stone measuring 3 mm, MRCP could be performed for further evaluation of clinically indicated, mild small bowel ileus. Given the fact that the patient' s LFTs are not elevated and the pattern to suggest an acute biliary obstruction , I doubt that this actually represents biliary obstruction with choledocholithiasis. However, I do believe that the patient has an ileus. The patient's prior imaging was reviewed. The patient did have biliary ductal dilatation in the past. The patient will be admitted to the hospital for continued evaluation and treatment for dehydration, ileus. The patients results were discussed with the patient, including the plan of care. I explained that further testing and/ or monitoring is indicated based on the patients history, examination, and/ or laboratory findings. Therefore, I recommended admission for additional evaluation. The patient expressed understanding and was agreeable with this plan. The patient was admitted to the hospital in stable condition and sent to a bed under the care of the [facility] service. Physician Communication Physician Communication The patient's case including history, pertinent physical examination findings, and laboratory studies were discussed with Dr. Vazquez. It was agreed that the patient would be admitted to the [facility] service. Diagnosis Primary Impression: Dehydration Additional Impression: Ileus Admitting Information Admitting Physician Requests: Admit aY Vásquez MD Sep 25, 2017 22:25
[2017-09-25 22:38] LABS: ANION GAP 12 MEQ/L (5-15); AST (GOT) 69 U/L (15-37); BLOOD UREA NITROGEN 15 MG/DL (7-18); CHLORIDE 115 MEQ/L (98-107); GLOMERULAR FILTRATION RATE 67 ML/MIN (>89); MAGNESIUM 1.9 MG/DL (1.5-2.5); POTASSIUM 4.1 MEQ/L (3.5-5.1); SODIUM (NA) 144 MEQ/L (136-145)
[2017-09-25 22:45] LABS: ALKALINE PHOSPHATASE 68 U/L (45-117); ALT (GPT) 29 U/L (12-78); TOTAL BILIRUBIN ADULT 0.3 MG/DL (0.2-1.0)
[2017-09-25] MEDS ORDERED: ONDANSETRON HCL 4 MG/2 ML VIAL IV PUSH ONE (22:45)
[2017-09-25] MEDS ORDERED: MORPHINE SULFATE 2 MG/ML INJ IV PUSH ONE (22:45)
[2017-09-26] VITALS (9 sets, daily range): BP systolic 141–217; BP diastolic 77–104; PULSE 54–66; RESP 16–20; TEMP 98–98.7; O2SAT 92–97
[2017-09-26] MEDS ORDERED: IOHEXOL 350 MG/ML 10 ML VIAL (for RAD DIAG) IVCONTRAST ONE (00:05)
[2017-09-26] MEDS ORDERED: SODIUM CHLORID 0.9% 500 ML INJ 500 ML IV ONE (00:45)
--- NOTE | 2017-09-26 00:56 | RADRPT ---
EXAM DATE/TIME: 09/25/2017 23:56 [facility] COMPARISON: CT ABDOMEN & PELVIS W CONTRAST, May 07, 2017, 13:41. INDICATIONS : Diffuse abdominal pain. IV CONTRAST: 80 cc Omnipaque 350 (iohexol) IV ORAL CONTRAST: No oral contrast ingested. RADIATION DOSE: 4.58 CTDIvol (mGy) MEDICAL HISTORY : Myocardial infarction. Hypertension. Pancreatitis.Hep C. CAD. SURGICAL HISTORY : Appendectomy. Cholecystectomy.CABGEsophageal banding. ENCOUNTER: Initial ACUITY: 1 day PAIN SCALE: 8/10 LOCATION: Abdomen. TECHNIQUE: Volumetric scanning of the abdomen and pelvis was performed. Using automated exposure control and ad justment of the mA and/or kV according to patient size, radiation dose was kept as low as reasonably achievable to obtain optimal diagnostic quality images. DICOM format image data is available electro nically for review and comparison. FINDINGS: There is subsegmental atelectasis in the left base. The liver and spleen are free of focal defects. T here is dilatation of the intrahepatic ducts and common bile duct with possible 3 mm stone at the amp pallavi. MRCP could be performed for further evaluation if clinically indicated. The pancreatic duct is dilated characteristic of chronic pancreatitis without evidence of acute findings. There is small bow el dilatation left side the abdomen which may reflect ileus. Examination of the pelvis demonstrates no evidence of free fluid or pelvic mass. No abnormally enlarg ed inguinal or retroperitoneal lymph nodes are present. The bladder is unremarkable. The prostate gla nd is moderately enlarged impinging on the bladder base. CONCLUSION: 1. Biliary ductal dilatation with possible distal common duct stone measuring 3 mm. MRCP could be per formed for further evaluation if clinically indicated. 2. Mild small bowel ileus Thor Peter MD on September 26, 2017 at 0:47 Board Certified Radiologist. This report was verified electronically.
[2017-09-26] MEDS: SODIUM CHLOR 0.9% 1000 ML INJ 1,000 ML IV SCH ×3 (01:22→18:38)
[2017-09-26] MEDS ORDERED: NALOXONE HCL 0.4 MG/ML AMP IV PUSH PRN (01:30)
[2017-09-26 01:51] LABS: BACTERIA, URINE RARE /hpf; BLOOD, URINE NEG (NEG); GLUCOSE,URINE NEG (NEG); KETONE, URINE NEG (NEG); MUCUS URINE FEW /lpf (OCC); NITRITE,URINE NEG (NEG); SQUAMOUS EPITHELIAL CELL URINE <1 /hpf (0-5); URINE COLOR LIGHT-YELLOW (YELLW/STRAW)
[2017-09-26 01:52] LABS: COMMENT (UR) CULT NOT INDICATED; CULTURE IF INDICATED CULT NOT INDICATED
--- NOTE | 2017-09-26 02:04 | RADRPT ---
EXAM DATE/TIME: 09/26/2017 01:36 [facility] COMPARISON: CT ABDOMEN & PELVIS W CONTRAST, September 25, 2017, 23:56. INDICATIONS : Right upper quadrant pain. Abnormal CT. MEDICAL HISTORY : Myocardial infarction. Hypercholesterolemia. Hypertension. Coronary artery disease. Hepatitis C. Panc reatitis. SURGICAL HISTORY : CABG. Cholecystectomy. Coronary stents. Esophageal banding. ENCOUNTER: Initial ACUITY: 1 day PAIN SCORE: 1/10 LOCATION: Right upper quadrant MEASUREMENTS: LIVER: 16.7 cm length COMMON DUCT: 10 mm RIGHT KIDNEY: 11.5 x 4.6 x 6.3 cm FINDINGS: Ultrasound of the upper abdomen demonstrates normal echogenicity of the liver. No intrahepatic or ext ra hepatic ductal dilatation is seen. There is hepatopedal flow through the portal vein. The gallbla dder is surgically absent. The common duct is dilated to 10 mm. No stone is identified. The right kid tomasa is unremarkable. CONCLUSION: 1. Ductal dilatation as above. 2. Common duct stone cannot be identified though there is significant overlying gas. MRCP could be pe rformed for further evaluation if clinically indicated. Thor Peter MD on September 26, 2017 at 2:01 Board Certified Radiologist. This report was verified electronically.
[2017-09-26] MEDS: ONDANSETRON HCL 4 MG/2 ML VIAL IVP PRN ×3 (02:30→21:05)
[2017-09-26] MEDS: MORPHINE SULFATE 2 MG/ML INJ IV PUSH PRN ×6 (02:31→21:00)
[2017-09-26] MEDS: SODIUM CHLORIDE 0.9% FLUSH 10 ML FLUSH IV FLUSH SCH ×2 (09:18→20:59)
--- NOTE | 2017-09-26 09:23 | RADRPT ---
EXAM DATE/TIME: 09/26/2017 08:07 [facility] COMPARISON: CT ABDOMEN & PELVIS W CONTRAST, September 25, 2017, 23:56. MRCP W/O CONTRAST, May 10, 2017, 8:56. INDICATIONS : Obstruction. MEDICAL HISTORY : Hypertension. SURGICAL HISTORY : CABG Cholecystectomy. ENCOUNTER: Initial ACUITY: 2 day PAIN SCORE: 4/10 LOCATION: abdomen TECHNIQUE: Multiplanar, multisequence magnetic resonance imaging of the abdomen was performed. High-resolution 3D dataset was utilized to reconstruct maximum-intensity projection (MIP) images. FINDINGS: INTRAHEPATIC BILE DUCTS: There is mild dilatation of the intrahepatic bile ducts centrally particularly the left intrahepatic duct. No significant anatomic variant is appreciated. EXTRAHEPATIC BILE DUCTS: The common hepatic duct measures up to 13 mm and is mildly tortuous. The mid common bile duct also me asures 13 mm and tapers distally near the ampulla down to approximately 5 mm. No stones are identifie d within the duct. There is mild dilatation at the ampulla of Vater. GALLBLADDER: Surgically Absent. LIVER: Liver is normal in size and signal intensity. No focal lesion is identified on this noncontrast exam. PANCREAS: Main pancreatic duct in the head and body is dilated measuring up to 12 mm. There are a few ectatic s idebranches. In pancreatic duct in the tail measures approximately 3-[address] demonstrated a fe w punctate calcifications in the pancreatic head. No solid mass is appreciated on this noncontrast ex am. OTHER: There is a trace right pleural effusion. Aorta is non-aneurysmal. CONCLUSION: 1. Overall, no significant change is appreciated compared to the April 2017 examination. There is stab le extrahepatic bile duct dilatation in this patient post cholecystectomy. The common bile duct measu res up to 8 mm. No distal obstructing stone or mass is seen. 2. Abnormally dilated main pancreatic duct in the head and body measuring up to 13 mm in stable the p rior study. The main duct is normal in size in the tail region. Prior CT demonstrated calcification i n the pancreatic head indicating prior pancreatitis. The dilated duct could be related to stricture a t the ampulla or could be related to a segmental intraductal papillary mucinous neoplasm (IPMN). Nabeel Atkins MD on September 26, 2017 at 8:58 Board Certified Radiologist. This report was verified electronically.
--- NOTE | 2017-09-26 09:39 | EKG ---
Date Performed: 09/25/2017 Time Performed: 22:15:25 PTAGE: 62 years EKG: SINUS BRADYCARDIA VOLTAGE CRITERIA FOR LVH NONSPECIFIC T-WAVE ABNORMALITY PROLONGED QT INTE RVAL ABNORMAL ECG PREVIOUS TRACING : 07/01/2017 06.06 DOCTOR: Neeraj Mills Interpretating Date/Time 09/26/2017 09:35:11
[2017-09-26 10:17] LABS: ALKALINE PHOSPHATASE 76 U/L (45-117); ALT (GPT) 41 U/L (12-78); ANION GAP 9 MEQ/L (5-15); AST (GOT) 145 U/L (15-37); BICARBONATE 20.1 MEQ/L (21.0-32.0); BLOOD UREA NITROGEN 12 MG/DL (7-18); CHLORIDE 114 MEQ/L (98-107); GLOMERULAR FILTRATION RATE 86 ML/MIN (>89); POTASSIUM 4.1 MEQ/L (3.5-5.1); SODIUM (NA) 143 MEQ/L (136-145); TOTAL BILIRUBIN ADULT 0.3 MG/DL (0.2-1.0)
[2017-09-26] MEDS: LISINOPRIL 20 MG TAB PO SCH (12:01)
[2017-09-26] MEDS: THIAMINE HCL 100 MG TAB PO SCH (12:01)
[2017-09-26] MEDS: CARVEDILOL 6.25 MG TAB PO SCH ×2 (12:01→20:55)
[2017-09-26] MEDS: FOLIC ACID 1 MG TAB PO SCH (12:01)
[2017-09-26] MEDS: hydrALAZINE HCL 100 MG TAB PO SCH ×2 (12:52→17:40)
--- NOTE | 2017-09-26 13:12 | HHI.HP ---
[facility] Service [facility] Primary Care Physician [facility] Admission Diagnosis Ileus, possible billiary duct stone Diagnoses: (1) Abdominal pain (2) Coronary artery disease (3) GERD (gastroesophageal reflux disease) (4) Hypertension Chief Complaint: abdominal pain Travel History International Travel<30 Days: No Contact w/Intl Traveler <30 Da: No Traveled to Known Affected Are: No History of Present Illness The patient is a 62-year-old male who presented to the emergency department with complaint of abdominal pain that started 2 days ago. The pain is in the lower abdomen and radiates to his back. He has a history of pancreatitis, but states that this pain is different. He has had diarrhea for the last 2 days as well. He reports chills, but denies fever. No nausea or vomiting. Nothing seems to make the pain better or worse. Currently 03/28. Review of Systems Constitutional: DENIES: Fever, Chills, Night Sweats Eyes: DENIES: Blurred vision, Vision loss Ears, nose, mouth, throat: DENIES: Hearing loss Respiratory: DENIES: Cough, Wheezing, Sputum production, Shortness of breath Cardiovascular: DENIES: Chest pain, Palpitations, Dyspnea on Exertion, Lower Extremity Edema Gastrointestinal: COMPLAINS OF: Abdominal pain, Diarrhea, DENIES: Constipation , Nausea, Vomiting Genitourinary: DENIES: Urinary frequency, Urinary incontinence, Urgency, Hematuria, Dysuria, Nocturia Musculoskeletal: DENIES: Joint pain, Muscle aches Integumentary: DENIES: Pruritus, Rash Hematologic/lymphatic: DENIES: Bruising Neurologic: DENIES: Headache Past Family Social History Past Medical History History of pancreatitis with pseudocyst Coronary artery disease History of [place] COPD Gout Alcohol abuse Hyperlipidemia Hypertension Past Surgical History CABG 5 vessels in 2007 Cholecystectomy Laparotomy secondary to pseudocyst Esophageal banding Appendectomy Reported Medications Lisinopril 40 Mg Tab 40 Mg PO DAILY Carvedilol 6.25 Mg Tab 6.25 Mg PO BID Hydralazine HCl 50 Mg Tablet 2 Tab PO TID Lipitor (Atorvastatin Calcium) 40 Mg Tab 40 Mg PO HS Aspirin 81 (Aspirin) 81 Mg Tabdr 81 Mg PO DAILY Folic Acid 1 Mg Tablet 1 Mg DAILY Vitamin B-1 (Thiamine HCl) 100 Mg Tab 100 Mg PO DAILY Allergies: Coded Allergies: hydromorphone (Unverified Allergy, Intermediate, Hives, 09/25/17) metoclopramide (Unverified Allergy, Intermediate, Hives, 09/25/17) Family History Lung cancer Social History Smokes one half pack per day. Drinks a 4 pack of beer every 2-3 days. No recent illicit drug use. History of cocaine use in the past. Denies history of IV drug use. Physical Exam Vital Signs Vital Signs Date Time Temp Pulse Resp B/P (MAP) Pulse Ox O2 Delivery O2 Flow Rate FiO2 09/26/17 11:07 98.0 54 19 217/104 (141) 96 Room Air 09/26/17 05:34 60 16 172/92 (118) 97 Room Air 09/26/17 01:36 58 16 150/84 (106) 97 Room Air 09/25/17 22:03 99 Room Air 09/25/17 21:42 16 09/25/17 21:38 97.5 65 16 164/84 (110) 99 Physical Exam GENERAL: Well-nourished, well-developed male in no acute distress. HEENT: Normocephalic, atraumatic. Pupils equal, round and reactive. Extraocular movements intact. No scleral icterus. No injection or drainage. Oropharynx is clear. Mucous membranes are moist. CARDIOVASCULAR: Regular rate and rhythm without murmurs, gallops, or rubs. RESPIRATORY: Clear to auscultation. No wheezes, rales, or rhonchi. Breathing is non-labored. GASTROINTESTINAL: Abdomen soft, tender to palpation in the lower abdomen without rebound or guarding, nondistended. EXTREMITIES: No lower extremity edema. No calf tenderness. PSYCH: Alert and oriented x 3. Laboratory Laboratory Tests Test 09/25/17 22:00 09/26/17 01:30 09/26/17 08:43 White Blood Count 5.3 Red Blood Count 3.88 Hemoglobin 11.8 Hematocrit 35.9 Mean Corpuscular Volume 92.6 Mean Corpuscular Hemoglobin 30.5 Mean Corpuscular Hemoglobin Concent 33.0 Red Cell Distribution Width 19.0 Platelet Count 182 Mean Platelet Volume 8.6 Neutrophils (%) (Auto) 51.2 Lymphocytes (%) (Auto) 33.6 Monocytes (%) (Auto) 13.5 Eosinophils (%) (Auto) 0.7 Basophils (%) (Auto) 1.0 Neutrophils # (Auto) 2.7 Lymphocytes # (Auto) 1.8 Monocytes # (Auto) 0.7 Eosinophils # (Auto) 0.0 Basophils # (Auto) 0.1 CBC Comment DIFF FINAL Differential Comment Blood Urea Nitrogen 15 12 Creatinine 1.31 1.06 Random Glucose 102 101 Total Protein 6.5 6.8 Albumin 2.8 2.8 Calcium Level 7.8 7.5 Magnesium Level 1.9 Alkaline Phosphatase 68 76 Aspartate Amino Transf (AST/SGOT) 69 145 Alanine Aminotransferase (ALT/SGPT) 29 41 Total Bilirubin 0.3 0.3 Sodium Level 144 143 Potassium Level 4.1 4.1 Chloride Level 115 114 Carbon Dioxide Level 17.0 20.1 Anion Gap 12 9 Estimat Glomerular Filtration Rate 67 86 Troponin I 0.02 Lipase 39 Urine Color LIGHT-YELLOW Urine Turbidity CLEAR Urine pH 5.0 Urine Specific Byers 1.026 Urine Protein NEG Urine Glucose (UA) NEG Urine Ketones NEG Urine Occult Blood NEG Urine Nitrite NEG Urine Bilirubin NEG Urine Urobilinogen LESS THAN 2.0 Urine Leukocyte Esterase NEG Urine RBC LESS THAN 1 Urine WBC 1 Urine Squamous Epithelial Cells <1 Urine Bacteria RARE Urine Mucus FEW Microscopic Urinalysis Comment CULT NOT INDICATED Result Diagram: 09/25/17219909/26/17 0843 Imaging Last Impressions Gall Bladder Ultrasound 09/26/17 0000 Signed Impressions: Service Date/Time: Tuesday, September 26, 2017 01:36 - CONCLUSION: 1. Ductal dilatation as above. 2. Common duct stone cannot be identified though there is significant overlying gas. MRCP could be performed for further evaluation if clinically indicated. Thor Peter MD Cholangiopancreatography MRI 09/26/17 0000 Signed Impressions: Service Date/Time: Tuesday, September 26, 2017 08:07 - CONCLUSION: 1. Overall , no significant change is appreciated compared to the April 2017 examination. There is stable extrahepatic bile duct dilatation in this patient post cholecystectomy. The common bile duct measures up to 8 mm. No distal obstructing stone or mass is seen. 2. Abnormally dilated main pancreatic duct in the head and body measuring up to 13 mm in stable the prior study. The main duct is normal in size in the tail region. Prior CT demonstrated calcification in the pancreatic head indicating prior pancreatitis. The dilated duct could be related to stricture at the ampulla or could be related to a segmental intraductal papillary mucinous neoplasm (IPMN). Nabeel Atkins MD Abdomen/Pelvis CT 09/25/17 2229 Signed Impressions: Service Date/Time: Monday, September 25, 2017 23:56 - CONCLUSION: 1. Biliary ductal dilatation with possible distal common duct stone measuring 3 mm. MRCP could be performed for further evaluation if clinically indicated. 2. Mild small bowel ileus MD Mansoor Prince VTE Risk Assessment Caprini VTE Risk Assessment: Mod/High Risk (score >= 2) Caprini Risk Assessment Model Point Value = 1 Point Value = 2 Point Value = 3 Point Value = 5 Age 41-60 Minor surgery BMI > 25 kg/m2 Swollen legs Varicose veins or History of unexplained or recurrent spontaneous Oral contraceptives or hormone replacement Sepsis (< 1 month) Serious lung disease, including pneumonia (< 1 month) Abnormal pulmonary function Acute myocardial infarction Congestive heart failure (< 1 month) History of inflammatory bowel disease Medical patient at bed rest Age 61-74 Arthroscopic surgery Major open surgery (> 45 min) Laparoscopic surgery (> 45 min) Malignancy Confined to bed (> 72 hours) Immobilizing plaster cast Central venous access Age >= 75 History of VTE Family history of VTE Factor V Leiden Prothrombin [id number] Lupus anticoagulant Anticardiolipin antibodies Elevated serum homocysteine Heparin-induced thrombocytopenia Other congenital or acquired thrombophilia Stroke (< 1 month) Elective arthroplasty Hip, pelvis, or leg fracture Acute spinal cord injury (< 1 month) Prophylaxis Regimen Total Risk Factor Score Risk Level Prophylaxis Regimen 0-1 Low Early ambulation 2 Moderate Order ONE of the following: *Sequential Compression Device (SCD) *Heparin 5000 units SQ BID 3-4 Higher Order ONE of the following medications: *Heparin 5000 units SQ TID *Enoxaparin/Lovenox 40 mg SQ daily (WT < 150 kg, CrCl > 30 mL/min) *Enoxaparin/Lovenox 30 mg SQ daily (WT < 150 kg, CrCl > 10-29 mL/min) *Enoxaparin/Lovenox 30 mg SQ BID (WT < 150 kg, CrCl > 30 mL/min) AND/OR *Sequential Compression Device (SCD) 5 or more Highest Order ONE of the following medications: *Heparin 5000 units SQ TID (Preferred with Epidurals) *Enoxaparin/Lovenox 40 mg SQ daily (WT < 150 kg, CrCl > 30 mL/min) *Enoxaparin/Lovenox 30 mg SQ daily (WT < 150 kg, CrCl > 10-29 mL/min) *Enoxaparin/Lovenox 30 mg SQ BID (WT < 150 kg, CrCl > 30 mL/min) AND *Sequential Compression Device (SCD) Assessment and Plan Assessment and Plan 1. Abdominal pain: Possible ileus. Continue IV fluids, pain control. LFTs are within normal limits. MRCP report noted. Consult gastroenterology. Patient is NPO. 2. Hypertension: Blood pressure is elevated. Patient received his morning blood pressure medications late. Have Vasotec as needed. 3. Acute kidney injury: Creatinine is improving. Continue IV fluids. 4. History of coronary artery disease: Currently asymptomatic. Continue Coreg, Norvasc, aspirin, statin. 5. Tobacco abuse: Counseled quit smoking. 6. Alcohol abuse: Counseled. 7. DVT prophylaxis: NARCISA Rowell. Maikel Christian MD Sep 26, 2017 13:11
[2017-09-26] MEDS: ENALAPRILAT 1.25 MG/ML VIAL IV PUSH PRN (15:18)
[2017-09-26] MEDS: SODIUM CHLORIDE 0.9% FLUSH 10 ML FLUSH IV FLUSH PRN ×2 (15:18→21:05)
--- NOTE | 2017-09-26 16:33 | HHI.GIFU ---
Subjective Remarks THis is a 62 yo male with hx pancreatic pseudocysts presented with 2 days of lower abd pain, nausea, diarrhea, dizziness. No aggravating or relieving factors. He indicates the suprapubic region where his pain is. Has had some subjective fevers. Denies blood in stool, tarry stool, vomiting, sick contacts , new food, new meds, recent travel. CT scan showed small bowel dilatation suggestive of mild ileus. He has never had EGD or colonoscopy. (Dalia Parra) Objective Vitals I&O Vital Signs Date Time Temp Pulse Resp B/P (MAP) Pulse Ox O2 Delivery O2 Flow Rate FiO2 09/26/17 13:30 09/26/17 13:30 98.3 55 18 198/93 (128) 92 09/26/17 13:21 190/96 (127) 09/26/17 11:07 98.0 54 19 217/104 (141) 96 Room Air 09/26/17 05:34 60 16 172/92 (118) 97 Room Air 09/26/17 01:36 58 16 150/84 (106) 97 Room Air 09/25/17 22:03 99 Room Air 09/25/17 21:42 16 09/25/17 21:38 97.5 65 16 164/84 (110) 99 I/O 09/25/17 09/25/17 09/25/17 09/26/17 09/26/17 09/26/17 07:00 15:00 23:00 07:00 15:00 23:00 Intake Total 1000 ml Output Total 600 ml Balance 1000 ml -600 ml Intake IV Total 1000 ml Output Urine Total 600 ml # Voids 1 2 Laboratory Laboratory Tests Test 09/25/17 22:00 09/26/17 01:30 09/26/17 08:43 White Blood Count 5.3 Red Blood Count 3.88 Hemoglobin 11.8 Hematocrit 35.9 Mean Corpuscular Volume 92.6 Mean Corpuscular Hemoglobin 30.5 Mean Corpuscular Hemoglobin Concent 33.0 Red Cell Distribution Width 19.0 Platelet Count 182 Mean Platelet Volume 8.6 Neutrophils (%) (Auto) 51.2 Lymphocytes (%) (Auto) 33.6 Monocytes (%) (Auto) 13.5 Eosinophils (%) (Auto) 0.7 Basophils (%) (Auto) 1.0 Neutrophils # (Auto) 2.7 Lymphocytes # (Auto) 1.8 Monocytes # (Auto) 0.7 Eosinophils # (Auto) 0.0 Basophils # (Auto) 0.1 CBC Comment DIFF FINAL Differential Comment Blood Urea Nitrogen 15 12 Creatinine 1.31 1.06 Random Glucose 102 101 Total Protein 6.5 6.8 Albumin 2.8 2.8 Calcium Level 7.8 7.5 Magnesium Level 1.9 Alkaline Phosphatase 68 76 Aspartate Amino Transf (AST/SGOT) 69 145 Alanine Aminotransferase (ALT/SGPT) 29 41 Total Bilirubin 0.3 0.3 Sodium Level 144 143 Potassium Level 4.1 4.1 Chloride Level 115 114 Carbon Dioxide Level 17.0 20.1 Anion Gap 12 9 Estimat Glomerular Filtration Rate 67 86 Troponin I 0.02 Lipase 39 Urine Color LIGHT-YELLOW Urine Turbidity CLEAR Urine pH 5.0 Urine Specific [place] 1.026 Urine Protein NEG Urine Glucose (UA) NEG Urine Ketones NEG Urine Occult Blood NEG Urine Nitrite NEG Urine Bilirubin NEG Urine Urobilinogen LESS THAN 2.0 Urine Leukocyte Esterase NEG Urine RBC LESS THAN 1 Urine WBC 1 Urine Squamous Epithelial Cells <1 Urine Bacteria RARE Urine Mucus FEW Microscopic Urinalysis Comment CULT NOT INDICATED Imaging Last Impressions Gall Bladder Ultrasound 09/26/17 0000 Signed Impressions: Service Date/Time: Tuesday, September 26, 2017 01:36 - CONCLUSION: 1. Ductal dilatation as above. 2. Common duct stone cannot be identified though there is significant overlying gas. MRCP could be performed for further evaluation if clinically indicated. Thor Peter MD Cholangiopancreatography MRI 09/26/17 0000 Signed Impressions: Service Date/Time: Tuesday, September 26, 2017 08:07 - CONCLUSION: 1. Overall , no significant change is appreciated compared to the April 2017 examination. There is stable extrahepatic bile duct dilatation in this patient post cholecystectomy. The common bile duct measures up to 8 mm. No distal obstructing stone or mass is seen. 2. Abnormally dilated main pancreatic duct in the head and body measuring up to 13 mm in stable the prior study. The main duct is normal in size in the tail region. Prior CT demonstrated calcification in the pancreatic head indicating prior pancreatitis. The dilated duct could be related to stricture at the ampulla or could be related to a segmental intraductal papillary mucinous neoplasm (IPMN). Nabeel Atkins MD Abdomen/Pelvis CT 09/25/17 2229 Signed Impressions: Service Date/Time: Monday, September 25, 2017 23:56 - CONCLUSION: 1. Biliary ductal dilatation with possible distal common duct stone measuring 3 mm. MRCP could be performed for further evaluation if clinically indicated. 2. Mild small bowel ileus Thor Peter MD Physical Exam HEENT: PERRL; normocephalic; atraumatic; no jaundice. CHEST: CTA CARDIAC: RRR ABDOMEN: Soft, nondistended, nontender; no hepatosplenomegaly; bowel sounds are present in all four quadrants. : suprapubic TTP EXTREMITIES: No clubbing, cyanosis, or edema. SKIN: Normal; no rash; no jaundice. NEW BUSINESS CLERK: No focal deficits; alert and oriented times three. (Dalia Parra) Assessment and Plan Plan ASSESSMENT - nausea, lower abd/suprapubic pain, diarrhea - duration 2 days. pain seems more suprapubic area. CT suggested poss mild ileus, abd fairly benign on exam never had colonoscopy PLAN - colonoscopy in am - obtain consent - mg citrate prep - clears today - NPO after midnight - stool cx - further recs to follow This pt seen by myself and Dr Alarcon and this note is written on his behalf (Dalia Parra) Physician Comments Seen and examined, plan as above. Consent obtained for colonoscopy. Further recommendations to follow. (Gustavo Alarcon MD) Dalia Parra Sep 26, 2017 16:33 Gustavo Alarcon MD Sep 26, 2017 17:35
[2017-09-26] MEDS ORDERED: MAGNESIUM CITRATE SOLN 300 ML BTL PO ONE ×2 (18:00)
[2017-09-26] MEDS ORDERED: cloNIDine HCL 0.1 MG TAB PO ONE (19:00)
[2017-09-26] MEDS ORDERED: ATORVASTATIN 40 MG TAB PO SCH (21:00)
[2017-09-27] VITALS (7 sets, daily range): BP systolic 147–185; BP diastolic 69–92; PULSE 55–69; RESP 16–20; TEMP 98–98.9; O2SAT 93–96
[2017-09-27] MEDS ORDERED: INSULIN HUMAN REGULAR 1,000 UNITS/10 ML VIAL SQ PRN (02:45)
[2017-09-27] MEDS ORDERED: POVIDONE IODINE 5% (ANTISEPSIS KIT) 4 APPLICATIONS EACH NARE PRN (02:45)
[2017-09-27] MEDS ORDERED: METOPROLOL TARTRATE 25 MG TAB PO PRN (02:45)
[2017-09-27] MEDS ORDERED: SODIUM CHLORID 0.9% 500 ML IV PRN (02:45)
[2017-09-27] MEDS ORDERED: LACTATED RINGER'S 1000 ML IV PRN (02:45)
[2017-09-27] MEDS ORDERED: CHLORHEXIDINE GLUCONATE 2 % 1 PACK (2 CLOTHS) TOPICAL PRN (02:45)
[2017-09-27] MEDS: MORPHINE SULFATE 2 MG/ML INJ IV PUSH PRN ×5 (04:37→21:51)
[2017-09-27] MEDS: SODIUM CHLOR 0.9% 1000 ML INJ 1,000 ML IV SCH ×2 (04:37→16:30)
[2017-09-27] MEDS: ONDANSETRON HCL 4 MG/2 ML VIAL IVP PRN ×3 (04:37→18:19)
[2017-09-27] MEDS: SODIUM CHLORIDE 0.9% FLUSH 10 ML FLUSH IV FLUSH PRN ×2 (04:38→21:52)
[2017-09-27] MEDS: CARVEDILOL 6.25 MG TAB PO SCH ×2 (07:27→20:42)
[2017-09-27 08:22] LABS: AUTOMATED NEUTROPHIL # 4.5 TH/MM3 (1.8-7.7); BASOPHIL % 0.7 % (0.0-2.0); EOSINOPHIL % 0.4 % (0.0-4.0); HEMO FLAGS DIFF FINAL; LYMPHOCYTE # 0.9 TH/MM3 (1.0-4.8); MEAN CELL VOLUME 92.4 FL (80.0-100.0); MEAN CORPUSCULAR HEMOGLOBIN 30.8 PG (27.0-34.0); MEAN CORPUSCULAR HGB CONC 33.3 % (32.0-36.0); MONO % 13.5 % (0.0-8.0); NEUT % 71.4 % (16.0-70.0); PLATELET COUNT 178 TH/MM3 (150-450); RED BLOOD COUNT 4.01 MIL/MM3 (4.50-5.90); RED CELL DISTRIBUTION WIDTH 18.9 % (11.6-17.2); WHITE BLOOD COUNT 6.3 TH/MM3 (4.0-11.0)
[2017-09-27 08:40] LABS: ALKALINE PHOSPHATASE 180 U/L (45-117); ALT (GPT) 117 U/L (12-78); ANION GAP 9 MEQ/L (5-15); AST (GOT) 432 U/L (15-37); BICARBONATE 23.2 MEQ/L (21.0-32.0); BLOOD UREA NITROGEN 10 MG/DL (7-18); CHLORIDE 109 MEQ/L (98-107); GLOMERULAR FILTRATION RATE 105 ML/MIN (>89); POTASSIUM 3.8 MEQ/L (3.5-5.1); SODIUM (NA) 141 MEQ/L (136-145); TOTAL BILIRUBIN ADULT 0.6 MG/DL (0.2-1.0)
--- NOTE | 2017-09-27 09:37 | GIPROC ---
[facility] [address] [facility]. [facility], [address] COLONOSCOPY PROCEDURE REPORT EXAM DATE: 09/27/2017 PATIENT NAME: Kyle Drew MR #: [id number] BIRTHDATE: 1955 ENDOSCOPIST: Gustavo Alarcon MD ORDER #: [id number] FLATBED PRESS OPERATOR: Muna Thurman and Shawna Valentine STATUS: inpatient INDICATIONS: The patient is a 62 yr old male here for a colonoscopy due to bloating and anemia, non-specific PROCEDURE PERFORMED: Colonoscopy, diagnostic MEDICATIONS: None and Per Anesthesia. PREP QUALITY: poor PREP TYPE:Fleets Phospho Soda ESTIMATED BLOOD LOSS: None CONSENT: The patient understands the risks and benefits of the procedure and understands that these risks include, but are not limited to: sedation, allergic reaction, infection, perforation and/or bleeding. Alternative means of evaluation and treatment include, among others: physical exam, x-rays, and/or surgical intervention. The patient elects to proceed with this endoscopic procedure. medical equipment was checked for proper function. Hand hygiene and appropriate measures for infection prevention was taken. After the risks, benefits and alternatives of the procedure were thoroughly explained, Informed consent was verified, confirmed and timeout was successfully executed by the treatment team. A digital exam revealed no abnormalities of the rectum The Pentax [id number] endoscope was introduced through the anus and advanced to the cecum, which was identified by both the appendix and ileocecal valve. The instrument was then slowly withdrawn as the colon was fully examined. COLON FINDINGS: A significant amount of stool was present throughout the entire examined colon. Retroflexed views revealed no abnormalities The scope was then completely withdrawn from the patient and the procedure terminated. PROCEDURE WITHDRAWAL TIME:10minutes ADVERSE EVENTS: There were no complications. IMPRESSIONS: 1. Significant amount of stool was present throughout the entire examined colon 2. Retroflexed views revealed no abnormalities RECOMMENDATIONS: Continue surveillance RECALL: Return 1 year Colonoscopy Gustavo Alarcon MD eSigned: Gustavo Alarcon MD 09/27/2017 9:37 AM cc:
--- NOTE | 2017-09-27 09:50 | HHI.PR ---
Subjective Remarks in procedure- colonoscopy this am tolerated well, no complains Objective Vitals Vital Signs Date Time Temp Pulse Resp B/P (MAP) Pulse Ox O2 Delivery O2 Flow Rate FiO2 09/27/17 09:42 97.6 60 18 177/87 (117) 97 09/27/17 09:10 Room Air 09/27/17 08:11 197/95 (129) 09/27/17 08:00 98.0 55 16 185/92 (123) 95 09/27/17 04:27 98.6 62 16 156/77 (103) 93 09/26/17 23:25 98.7 61 16 141/77 (98) 92 09/26/17 20:09 61 09/26/17 20:00 Room Air 09/26/17 19:50 98.4 66 18 191/91 (124) 92 178/90 (119) 09/26/17 16:00 98.1 54 20 207/98 (134) 95 09/26/17 13:30 09/26/17 13:30 98.3 55 18 198/93 (128) 92 09/26/17 13:21 190/96 (127) 09/26/17 11:07 98.0 54 19 217/104 (141) 96 Room Air I/O 09/26/17 09/26/17 09/26/17 09/27/17 09/27/17 09/27/17 07:00 15:00 23:00 07:00 15:00 23:00 Intake Total 1000 ml 0 ml 240 ml 450 ml Output Total 600 ml 675 ml 525 ml Balance 1000 ml -600 ml -675 ml -285 ml 450 ml Intake Oral 0 ml 240 ml IV Total 1000 ml Other 450 ml Output Urine Total 600 ml 675 ml 525 ml # Voids 1 2 # Bowel Movements 0 0 Result Diagram: 09/27/1755 09/27/1755 Imaging Last Impressions Gall Bladder Ultrasound 09/26/17 0000 Signed Impressions: Service Date/Time: Tuesday, September 26, 2017 01:36 - CONCLUSION: 1. Ductal dilatation as above. 2. Common duct stone cannot be identified though there is significant overlying gas. MRCP could be performed for further evaluation if clinically indicated. Thor Peter MD Cholangiopancreatography MRI 09/26/17 0000 Signed Impressions: Service Date/Time: Tuesday, September 26, 2017 08:07 - CONCLUSION: 1. Overall , no significant change is appreciated compared to the April 2017 examination. There is stable extrahepatic bile duct dilatation in this patient post cholecystectomy. The common bile duct measures up to 8 mm. No distal obstructing stone or mass is seen. 2. Abnormally dilated main pancreatic duct in the head and body measuring up to 13 mm in stable the prior study. The main duct is normal in size in the tail region. Prior CT demonstrated calcification in the pancreatic head indicating prior pancreatitis. The dilated duct could be related to stricture at the ampulla or could be related to a segmental intraductal papillary mucinous neoplasm (IPMN). Nabeel Atkins MD Abdomen/Pelvis CT 09/25/17 2229 Signed Impressions: Service Date/Time: Monday, September 25, 2017 23:56 - CONCLUSION: 1. Biliary ductal dilatation with possible distal common duct stone measuring 3 mm. MRCP could be performed for further evaluation if clinically indicated. 2. Mild small bowel ileus Thor Peter MD Procedures 09/27- colonoscopy- full of stools A/P Problem List: (1) Abdominal pain ICD Code: R10.9 - Unspecified abdominal pain (2) Coronary artery disease ICD Code: I25.10 - Coronary artery disease Status: Acute (3) GERD (gastroesophageal reflux disease) ICD Code: K21.9 - Gastro-esophageal reflux disease without esophagitis Status: Acute (4) Hypertension ICD Code: I10 - Hypertension Status: Chronic Assessment and Plan 62 years old male Abdominal pain: Possible ileus S/P colonosocpy- normal except for stools acute worsening LFTS. MRCP report noted. ? r/o stricture GI ff- will defer to GI for further work up ff LFTs Hypertension: continue meds Acute kidney injury: Creatinine is improving. Resolving Continue IV fluids History of coronary artery disease: Currently asymptomatic. Continue Coreg, aspirin, statin. Hold statins for now with worsening LFTs Tobacco abuse: Counseled quit smoking. Alcohol abuse: Counseled. DVT prophylaxis: NARCISA Rowell. Lashell Liu MD Sep 27, 2017 09:50
[2017-09-27] MEDS: FOLIC ACID 1 MG TAB PO SCH (10:27)
[2017-09-27] MEDS: SODIUM CHLORIDE 0.9% FLUSH 10 ML FLUSH IV FLUSH SCH ×2 (10:27→11:27)
[2017-09-27] MEDS: hydrALAZINE HCL 100 MG TAB PO SCH ×3 (10:28→18:21)
[2017-09-27] MEDS: THIAMINE HCL 100 MG TAB PO SCH (10:28)
[2017-09-27] MEDS: ASPIRIN EC 81 MG TABEC PO SCH (10:28)
[2017-09-27] MEDS: LISINOPRIL 20 MG TAB PO SCH (10:28)
[2017-09-27] MEDS ORDERED: PROPOFOL 200 MG/20 ML AMP IV ONE (12:00)
[2017-09-28] VITALS (10 sets, daily range): BP systolic 138–189; BP diastolic 65–90; PULSE 55–85; RESP 17–18; TEMP 98.4–99.5; O2SAT 91–92
[2017-09-28] MEDS: SODIUM CHLORIDE 0.9% FLUSH 10 ML FLUSH IV FLUSH PRN ×3 (01:58→05:14)
[2017-09-28] MEDS: MORPHINE SULFATE 2 MG/ML INJ IV PUSH PRN ×7 (01:59→21:36)
[2017-09-28] MEDS: ONDANSETRON HCL 4 MG/2 ML VIAL IVP PRN ×4 (01:59→21:36)
[2017-09-28] MEDS: SODIUM CHLOR 0.9% 1000 ML INJ 1,000 ML IV SCH ×3 (03:22→23:11)
[2017-09-28] MEDS: ENALAPRILAT 1.25 MG/ML VIAL IV PUSH PRN (04:45)
[2017-09-28] MEDS ORDERED: cloNIDine HCL 0.1 MG TAB PO ONE (06:30)
[2017-09-28] MEDS: ASPIRIN EC 81 MG TABEC PO SCH (08:57)
[2017-09-28] MEDS: FOLIC ACID 1 MG TAB PO SCH (08:57)
[2017-09-28] MEDS: CARVEDILOL 6.25 MG TAB PO SCH ×2 (08:57→20:34)
[2017-09-28] MEDS: hydrALAZINE HCL 100 MG TAB PO SCH ×3 (08:57→18:35)
[2017-09-28] MEDS: THIAMINE HCL 100 MG TAB PO SCH (08:57)
[2017-09-28] MEDS: LISINOPRIL 20 MG TAB PO SCH (08:57)
[2017-09-28] MEDS: SODIUM CHLORIDE 0.9% FLUSH 10 ML FLUSH IV FLUSH SCH ×2 (09:00→20:35)
[2017-09-28 10:01] LABS: ALKALINE PHOSPHATASE 168 U/L (45-117); ALT (GPT) 78 U/L (12-78); ANION GAP 10 MEQ/L (5-15); AST (GOT) 143 U/L (15-37); BICARBONATE 22.7 MEQ/L (21.0-32.0); BLOOD UREA NITROGEN 6 MG/DL (7-18); CHLORIDE 103 MEQ/L (98-107); GLOMERULAR FILTRATION RATE 99 ML/MIN (>89); SODIUM (NA) 136 MEQ/L (136-145); TOTAL BILIRUBIN ADULT 0.4 MG/DL (0.2-1.0)
[2017-09-28 10:09] LABS: POTASSIUM 4.5 MEQ/L (3.5-5.1)
--- NOTE | 2017-09-28 12:19 | HHI.PR ---
Subjective Remarks doing well, no complains of abdominal pain wanting to eat Objective Vitals Vital Signs Date Time Temp Pulse Resp B/P (MAP) Pulse Ox O2 Delivery O2 Flow Rate FiO2 09/28/17 11:06 98.4 63 17 138/65 (89) 92 09/28/17 08:00 55 09/28/17 06:19 178/80 (112) 09/28/17 04:44 170/82 (111) 09/28/17 04:03 98.6 56 18 189/90 (123) 92 09/27/17 23:18 98.9 58 18 160/74 (102) 96 09/27/17 21:35 21 09/27/17 20:45 Room Air 09/27/17 20:32 98.9 65 18 147/79 (101) 94 09/27/17 20:06 69 09/27/17 16:00 98.3 55 20 174/84 (114) 96 I/O 09/27/17 09/27/17 09/27/17 09/28/17 09/28/17 09/28/17 07:00 15:00 23:00 07:00 15:00 23:00 Intake Total 240 ml 450 ml 840 ml 2618 ml Output Total 525 ml 400 ml Balance -285 ml 450 ml 840 ml 2218 ml Intake Oral 240 ml 840 ml 480 ml IV Total 2138 ml Other 450 ml Output Urine Total 525 ml 400 ml # Voids 2 # Bowel Movements 0 0 0 Result Diagram: 09/27/17 0655 09/28/17 0640 Imaging Last Impressions Gall Bladder Ultrasound 09/26/17 0000 Signed Impressions: Service Date/Time: Tuesday, September 26, 2017 01:36 - CONCLUSION: 1. Ductal dilatation as above. 2. Common duct stone cannot be identified though there is significant overlying gas. MRCP could be performed for further evaluation if clinically indicated. Thor Peter MD Cholangiopancreatography MRI 09/26/17 0000 Signed Impressions: Service Date/Time: Tuesday, September 26, 2017 08:07 - CONCLUSION: 1. Overall , no significant change is appreciated compared to the April 2017 examination. There is stable extrahepatic bile duct dilatation in this patient post cholecystectomy. The common bile duct measures up to 8 mm. No distal obstructing stone or mass is seen. 2. Abnormally dilated main pancreatic duct in the head and body measuring up to 13 mm in stable the prior study. The main duct is normal in size in the tail region. Prior CT demonstrated calcification in the pancreatic head indicating prior pancreatitis. The dilated duct could be related to stricture at the ampulla or could be related to a segmental intraductal papillary mucinous neoplasm (IPMN). Nabeel Atkins MD Abdomen/Pelvis CT 09/25/17 2229 Signed Impressions: Service Date/Time: Monday, September 25, 2017 23:56 - CONCLUSION: 1. Biliary ductal dilatation with possible distal common duct stone measuring 3 mm. MRCP could be performed for further evaluation if clinically indicated. 2. Mild small bowel ileus Thor Peter MD Objective Remarks awake and alert anicteric lungs clear regular rhythm abdomen soft, nontender extremities no edmea neuro exam- unremarkable Procedures 09/27- colonoscopy- full of stools A/P Problem List: (1) Abdominal pain ICD Code: R10.9 - Unspecified abdominal pain (2) Coronary artery disease ICD Code: I25.10 - Coronary artery disease Status: Acute (3) GERD (gastroesophageal reflux disease) ICD Code: K21.9 - Gastro-esophageal reflux disease without esophagitis Status: Acute (4) Hypertension ICD Code: I10 - Hypertension Status: Chronic Assessment and Plan 62 years old male Abdominal pain: Possible ileus S/P colonosocpy- normal except for stools. Advance diet acute worsening LFTS. MRCP report noted. ? r/o stricture- LFTs trended down again GI ff- will defer to GI for further work up ff LFTs Hypertension: continue meds Acute kidney injury: Creatinine is improving. Resolving Continue IV fluids History of coronary artery disease: Currently asymptomatic. Continue Coreg, Norvasc, aspirin, statin.- increade dose Hold statins for now with worsening LFTs Tobacco abuse: Counseled quit smoking. Alcohol abuse: Counseled. DVT prophylaxis: NARCISA Rowell. Lashell Liu MD Sep 28, 2017 12:19
--- NOTE | 2017-09-28 13:13 | HHI.FF ---
Face to Face Verification Diagnosis: (1) Ileus (2) Hypertension (3) GERD (gastroesophageal reflux disease) Physical Therapy Order: Strength and gait training Occupational Therapy Order: Improve ADL Home Health Nursing Order: Signs/symptoms of disease process Medication education-adverse effect Nursing assessment with vital signs I have seen patient Kyle Drew on 09/28/17. My clinical findings support the need for the requested home health care services because: Deconditioned w/ increased weakness High risk of falls I certify that my clinical findings support that this patient is homebound because: Unsteady gait/balance [place] [facility] Sep 28, 2017 13:13
[2017-09-28] MEDS: amLODIPine BESYLATE 5 MG TAB PO SCH (13:19)
--- NOTE | 2017-09-28 14:55 | HHI.GIFU ---
Subjective Remarks Pt resting in bed. Says his lower abd pain is somewhat improved but still present. Mild nausea no vomiting. (Dalia Parra) Objective Vitals I&O Vital Signs Date Time Temp Pulse Resp B/P (MAP) Pulse Ox O2 Delivery O2 Flow Rate FiO2 09/28/17 13:18 56 165/76 (105) 09/28/17 11:06 98.4 63 17 138/65 (89) 92 09/28/17 08:00 55 09/28/17 06:19 178/80 (112) 09/28/17 04:44 170/82 (111) 09/28/17 04:03 98.6 56 18 189/90 (123) 92 09/27/17 23:18 98.9 58 18 160/74 (102) 96 09/27/17 21:35 21 09/27/17 20:45 Room Air 09/27/17 20:32 98.9 65 18 147/79 (101) 94 09/27/17 20:06 69 09/27/17 16:00 98.3 55 20 174/84 (114) 96 I/O 09/27/17 09/27/17 09/27/17 09/28/17 09/28/17 09/28/17 07:00 15:00 23:00 07:00 15:00 23:00 Intake Total 240 ml 450 ml 840 ml 2618 ml Output Total 525 ml 400 ml Balance -285 ml 450 ml 840 ml 2218 ml Intake Oral 240 ml 840 ml 480 ml IV Total 2138 ml Other 450 ml Output Urine Total 525 ml 400 ml # Voids 2 # Bowel Movements 0 0 0 Laboratory Laboratory Tests Test 09/28/17 06:40 Blood Urea Nitrogen 6 Creatinine 0.93 Random Glucose 84 Total Protein 6.4 Albumin 2.5 Calcium Level 8.0 Alkaline Phosphatase 168 Aspartate Amino Transf (AST/SGOT) 143 Alanine Aminotransferase (ALT/SGPT) 78 Total Bilirubin 0.4 Sodium Level 136 Potassium Level 4.5 Chloride Level 103 Carbon Dioxide Level 22.7 Anion Gap 10 Estimat Glomerular Filtration Rate 99 Physical Exam HEENT: PERRL; normocephalic; atraumatic; no jaundice. CHEST: coarse CARDIAC: RRR ABDOMEN: Soft, nondistended; no hepatosplenomegaly; bowel sounds are present in all four quadrants. : suprapubic TTP EXTREMITIES: No clubbing, cyanosis, or edema. SKIN: Normal; no rash; no jaundice. 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 (Dalia Parra) Assessment and Plan Plan ASSESSMENT - nausea, lower abd/suprapubic pain, diarrhea - duration 2 days. pain seems more suprapubic area. CT suggested poss mild ileus, prostate gland moderately enlarged impinging on bladder base. mil suprapubic/lower abd TTP on exam s/p colonoscopy 09/27 found significant amount of stool stool cx pending - elev LFTs - these have been fluctuating. MRCP shows stable extrahepatic bile duct dilatation s/p ever, stable main pancreatic duct dilatation, prior pancreatitis Per progress note 05/10/[address] Gomez review MRCP and it was felt that ERCP would not be helpful in this case. will do liver w/u to r/o other cause elevated LFTs PLAN - await stool cx - await liver w/u - repeat colonoscopy in 1 year, consider repeating sooner if pain persists - further recs to follow This pt seen by myself and Dr Alarcon and this note is written on his behalf (Dalia Parra) Physician Comments Seen with john paul Hayes as above. Further recommendations to follow. (Gustavo Alarcon MD) Dalia Parra Sep 28, 2017 14:55 Gustavo Alarcon MD Sep 28, 2017 18:51
[2017-09-29] MEDS: MORPHINE SULFATE 2 MG/ML INJ IV PUSH PRN ×4 (00:36→10:19)
[2017-09-29] MEDS: ONDANSETRON HCL 4 MG/2 ML VIAL IVP PRN (03:51)
[2017-09-29 04:00] VITALS: BP 149/77; PULSE 59; RESP 18; TEMP 98.6; O2SAT 94
[2017-09-29 08:00] VITALS: BP 187/74; PULSE 62; RESP 20; TEMP 98.4; O2SAT 92
[2017-09-29 08:20] LABS: TRANSFERRIN IRON PROFILE 206 MG/DL (200-360)
[2017-09-29 08:23] LABS: FERRITIN 41 NG/ML (26-388)
[2017-09-29] MEDS: LISINOPRIL 20 MG TAB PO SCH (08:51)
[2017-09-29] MEDS: hydrALAZINE HCL 100 MG TAB PO SCH ×2 (08:51→13:00)
[2017-09-29] MEDS: FOLIC ACID 1 MG TAB PO SCH (08:51)
[2017-09-29] MEDS: THIAMINE HCL 100 MG TAB PO SCH (08:52)
[2017-09-29] MEDS: SODIUM CHLORIDE 0.9% FLUSH 10 ML FLUSH IV FLUSH SCH (08:52)
[2017-09-29] MEDS: CARVEDILOL 6.25 MG TAB PO SCH (08:52)
[2017-09-29] MEDS: amLODIPine BESYLATE 5 MG TAB PO SCH (08:52)
[2017-09-29] MEDS: ASPIRIN EC 81 MG TABEC PO SCH (08:52)
[2017-09-29] MEDS: SODIUM CHLOR 0.9% 1000 ML INJ 1,000 ML IV SCH (08:58)
--- NOTE | 2017-09-29 11:17 | HHI.PR ---
Subjective Remarks no complains of pain, nausea or vomiting, tolerating po + stools- soft, not diarrhea Objective Vitals Vital Signs Date Time Temp Pulse Resp B/P (MAP) Pulse Ox O2 Delivery O2 Flow Rate FiO2 09/29/17 09:00 94 Room Air 09/29/17 08:42 21 09/29/17 08:00 98.4 62 20 187/74 (111) 92 09/29/17 04:00 Room Air 09/29/17 04:00 98.6 59 18 149/77 (101) 94 09/29/17 00:00 Room Air 09/28/17 23:10 99.1 62 18 163/86 (111) 91 09/28/17 20:00 Room Air 09/28/17 20:00 85 09/28/17 19:41 98.4 79 18 157/87 (110) 91 Automatic Cuff 09/28/17 16:00 99.5 82 18 145/74 (97) 92 09/28/17 13:18 56 165/76 (105) I/O 09/28/17 09/28/17 09/28/17 09/29/17 09/29/17 09/29/17 07:00 15:00 23:00 07:00 15:00 23:00 Intake Total 2618 ml 960 ml 720 ml Output Total 400 ml 800 ml Balance 2218 ml 960 ml -80 ml Intake Oral 480 ml 960 ml 720 ml IV Total 2138 ml Output Urine Total 400 ml 800 ml # Voids 3 # Bowel Movements 0 1 0 Result Diagram: 09/27/17 0655 09/28/17 0640 Imaging Last Impressions Gall Bladder Ultrasound 09/26/17 0000 Signed Impressions: Service Date/Time: Tuesday, September 26, 2017 01:36 - CONCLUSION: 1. Ductal dilatation as above. 2. Common duct stone cannot be identified though there is significant overlying gas. MRCP could be performed for further evaluation if clinically indicated. Thor Peter MD Cholangiopancreatography MRI 09/26/17 0000 Signed Impressions: Service Date/Time: Tuesday, September 26, 2017 08:07 - CONCLUSION: 1. Overall , no significant change is appreciated compared to the April 2017 examination. There is stable extrahepatic bile duct dilatation in this patient post cholecystectomy. The common bile duct measures up to 8 mm. No distal obstructing stone or mass is seen. 2. Abnormally dilated main pancreatic duct in the head and body measuring up to 13 mm in stable the prior study. The main duct is normal in size in the tail region. Prior CT demonstrated calcification in the pancreatic head indicating prior pancreatitis. The dilated duct could be related to stricture at the ampulla or could be related to a segmental intraductal papillary mucinous neoplasm (IPMN). Nabeel Atkins MD Abdomen/Pelvis CT 09/25/17 [id number] Signed Impressions: Service Date/Time: Monday, September 25, 2017 23:56 - CONCLUSION: 1. Biliary ductal dilatation with possible distal common duct stone measuring 3 mm. MRCP could be performed for further evaluation if clinically indicated. 2. Mild small bowel ileus Thor Peter MD Objective Remarks awake and alert anicteric lungs clear regular rhythm abdomen soft, nontender, good bowel sounds, no guarding extremities no edema neuro exam- unremarkable Procedures 09/27- colonoscopy- full of stools A/P Problem List: (1) Abdominal pain ICD Code: R10.9 - Unspecified abdominal pain (2) Coronary artery disease ICD Code: I25.10 - Coronary artery disease Status: Acute (3) GERD (gastroesophageal reflux disease) ICD Code: K21.9 - Gastro-esophageal reflux disease without esophagitis Status: Acute (4) Hypertension ICD Code: I10 - Hypertension Status: Chronic Assessment and Plan 62 years old male Abdominal pain: Possible ileus S/P colonosocpy- normal except for stools acute worsening LFTS. MRCP report noted. ? r/o stricture LFTs down to near baseline admission recheck now- if stable- DC PP ff up with GI- considering liver biopsy special liver studies blood wrok pending- OP ff up with / [facility]ian Hypertension: continue meds Acute kidney injury: resolved. good po History of coronary artery disease: Currently asymptomatic. Continue Coreg, aspirin, statin. Hold statins for now with acute elevation of LFTs recheck LFTs as OP- and consider restarting through PCP if continues to stabilize and improve discussed with him Tobacco abuse: Counseled quit smoking. Alcohol abuse: Counseled. DVT prophylaxis: SCDs, NARCISA hose.ambulating ADD: LFTs much improved DC today [facility]through [facility] or our local GI Problem Qualifiers (1) Hypertension: Qualified Codes: I10 - Essential (primary) hypertension Lashell Liu MD Sep 29, 2017 11:17
[2017-09-29 12:00] VITALS: BP 104/68; PULSE 58; RESP 18; TEMP 98.9; O2SAT 95
--- NOTE | 2017-09-29 13:45 | HHI.GIFU ---
Subjective Remarks Resting in bed in no apparent distress. Denies abdominal pain, nausea, or vomiting. Tolerating diet. (Tran Alejandre) Objective Vitals I&O Vital Signs Date Time Temp Pulse Resp B/P (MAP) Pulse Ox O2 Delivery O2 Flow Rate FiO2 09/29/17 12:00 98.9 58 18 104/68 (80) 95 09/29/17 09:00 94 Room Air 09/29/17 08:42 21 09/29/17 08:00 98.4 62 20 187/74 (111) 92 09/29/17 04:00 Room Air 09/29/17 04:00 98.6 59 18 149/77 (101) 94 09/29/17 00:00 Room Air 09/28/17 23:10 99.1 62 18 163/86 (111) 91 09/28/17 20:00 Room Air 09/28/17 20:00 85 09/28/17 19:41 98.4 79 18 157/87 (110) 91 Automatic Cuff 09/28/17 16:00 99.5 82 18 145/74 (97) 92 I/O 09/28/17 09/28/17 09/28/17 09/29/17 09/29/17 09/29/17 07:00 15:00 23:00 07:00 15:00 23:00 Intake Total 2618 ml 960 ml 720 ml Output Total 400 ml 800 ml Balance 2218 ml 960 ml -80 ml Intake Oral 480 ml 960 ml 720 ml IV Total 2138 ml Output Urine Total 400 ml 800 ml # Voids 3 # Bowel Movements 0 1 0 Laboratory Laboratory Tests Test 09/29/17 06:21 09/29/17 11:58 Iron Level 29 Total Iron Binding Capacity 288 Percent Iron Saturation 10.1 Ferritin 41 Tumor Marker Alpha Fetoprotein 3.0 Imaging Last Impressions Gall Bladder Ultrasound 09/26/17 0000 Signed Impressions: Service Date/Time: Tuesday, September 26, 2017 01:36 - CONCLUSION: 1. Ductal dilatation as above. 2. Common duct stone cannot be identified though there is significant overlying gas. MRCP could be performed for further evaluation if clinically indicated. Thor Peter MD Cholangiopancreatography MRI 09/26/17 0000 Signed Impressions: Service Date/Time: Tuesday, September 26, 2017 08:07 - CONCLUSION: 1. Overall , no significant change is appreciated compared to the April 2017 examination. There is stable extrahepatic bile duct dilatation in this patient post cholecystectomy. The common bile duct measures up to 8 mm. No distal obstructing stone or mass is seen. 2. Abnormally dilated main pancreatic duct in the head and body measuring up to 13 mm in stable the prior study. The main duct is normal in size in the tail region. Prior CT demonstrated calcification in the pancreatic head indicating prior pancreatitis. The dilated duct could be related to stricture at the ampulla or could be related to a segmental intraductal papillary mucinous neoplasm (IPMN). Nabeel Atkins MD Abdomen/Pelvis CT 09/25/17 5108 Signed Impressions: Service Date/Time: Monday, September 25, 2017 23:56 - CONCLUSION: 1. Biliary ductal dilatation with possible distal common duct stone measuring 3 mm. MRCP could be performed for further evaluation if clinically indicated. 2. Mild small bowel ileus Thor Peter MD Physical Exam HEENT: Normocephalic; atraumatic; no jaundice. CHEST: CTA CARDIAC: RRR ABDOMEN: Soft, nondistended; no hepatosplenomegaly; bowel sounds are present in all four quadrants. EXTREMITIES: No clubbing, cyanosis, or edema. SKIN: Normal; no rash; no jaundice. 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 (Tran Alejandre) Assessment and Plan Plan ASSESSMENT - Nausea, lower abdomen/suprapubic pain, diarrhea. Denies diarrhea today. CT suggested poss mild ileus, prostate gland moderately enlarged impinging on bladder base. Colonoscopy 09/27/17 found significant amount of stool. Stool cultures pending - Elevated LFTs, fluctuating. MRCP shows stable extrahepatic bile duct dilatation s/p cholecystectomy, stable main pancreatic duct dilatation, prior pancreatitis. T. Bili, AST, ALT, ALK Phos labs pending today. Alpha-1 Antitrypsin pending, Ceruloplasmin pending. SUSAN, ASMA, AMA pending. Hepatitis panel pending. PLAN - Await stool cultures - Await liver workup - Repeat colonoscopy in 1 year, consider repeating sooner if pain persists - Supportive care - Further recommendations to follow based on results of above Patient seen and examined by Dr. Alarcon and myself and this note is written on his behalf. (Tran Alejandre) Physician Comments Plan as above, further recommendations to follow. (Gustavo Alarcon MD) Tran Alejandre Sep 29, 2017 13:45 Gustavo Alarcon MD Sep 29, 2017 23:06
[2017-09-29 13:54] LABS: INDIRECT BILIRUBIN 0.2 MG/DL (0.0-0.8); TOTAL BILIRUBIN ADULT 0.3 MG/DL (0.2-1.0)
[2017-09-29] MEDS ORDERED: MORPHINE SULFATE 2 MG/ML INJ IV PUSH PRN (14:00)
--- NOTE | 2017-09-29 15:26 | HHI.DS ---
Discharge Summary Admission Date Sep 26, 2017 at 02:10 Discharge Date: Sep 29, 2017 Admitting Diagnosis Ileus, possible billiary duct stone (1) Abdominal pain ICD Code: R10.9 - Unspecified abdominal pain Diagnosis: Principal (2) Coronary artery disease ICD Code: I25.10 - Coronary artery disease Diagnosis: Secondary Status: Acute (3) GERD (gastroesophageal reflux disease) ICD Code: K21.9 - Gastro-esophageal reflux disease without esophagitis Diagnosis: Secondary Status: Acute (4) Hypertension ICD Code: I10 - Hypertension Diagnosis: Secondary Status: Chronic Procedures 09/27- colonoscopy- full of stools Brief History - From Admission The patient is a 62-year-old male who presented to the emergency department with complaint of abdominal pain that started 2 days ago. The pain is in the lower abdomen and radiates to his back. He has a history of pancreatitis, but states that this pain is different. He has had diarrhea for the last 2 days as well. He reports chills, but denies fever. No nausea or vomiting. Nothing seems to make the pain better or worse. Currently 03/28. CBC/BMP: 09/27/17 0655 09/28/17 0640 Significant Findings Laboratory Tests Test 09/27/17 06:55 09/28/17 06:40 09/29/17 06:21 Red Blood Count 4.01 MIL/MM3 (4.50-5.90) Hemoglobin 12.3 GM/DL (13.0-17.0) Hematocrit 37.0 % (39.0-51.0) Red Cell Distribution Width 18.9 % (11.6-17.2) Neutrophils (%) (Auto) 71.4 % (16.0-70.0) Monocytes (%) (Auto) 13.5 % (0.0-8.0) Lymphocytes # (Auto) 0.9 TH/MM3 (1.0-4.8) Albumin 2.6 GM/DL (3.4-5.0) 2.5 GM/DL (3.4-5.0) 2.3 GM/DL (3.4-5.0) Calcium Level 7.5 MG/DL (8.5-10.1) 8.0 MG/DL (8.5-10.1) Alkaline Phosphatase 180 U/L (45-117) 168 U/L (45-117) 133 U/L (45-117) Aspartate Amino Transf (AST/SGOT) 432 U/L (15-37) 143 U/L (15-37) 56 U/L (15-37) Alanine Aminotransferase (ALT/SGPT) 117 U/L (12-78) Chloride Level 109 MEQ/L (98-107) Blood Urea Nitrogen 6 MG/DL (7-18) Iron Level 29 MCG/DL (65-175) Percent Iron Saturation 10.1 % (20-50) Total Protein 5.5 GM/DL (6.4-8.2) Imaging Last Impressions Gall Bladder Ultrasound 09/26/17 0000 Signed Impressions: Service Date/Time: Tuesday, September 26, 2017 01:36 - CONCLUSION: 1. Ductal dilatation as above. 2. Common duct stone cannot be identified though there is significant overlying gas. MRCP could be performed for further evaluation if clinically indicated. Thor Petre MD Cholangiopancreatography MRI 09/26/17 0000 Signed Impressions: Service Date/Time: Tuesday, September 26, 2017 08:07 - CONCLUSION: 1. Overall , no significant change is appreciated compared to the April 2017 examination. There is stable extrahepatic bile duct dilatation in this patient post cholecystectomy. The common bile duct measures up to 8 mm. No distal obstructing stone or mass is seen. 2. Abnormally dilated main pancreatic duct in the head and body measuring up to 13 mm in stable the prior study. The main duct is normal in size in the tail region. Prior CT demonstrated calcification in the pancreatic head indicating prior pancreatitis. The dilated duct could be related to stricture at the ampulla or could be related to a segmental intraductal papillary mucinous neoplasm (IPMN). Nabeel Atkins MD Abdomen/Pelvis CT 09/25/17 2229 Signed Impressions: Service Date/Time: Monday, September 25, 2017 23:56 - CONCLUSION: 1. Biliary ductal dilatation with possible distal common duct stone measuring 3 mm. MRCP could be performed for further evaluation if clinically indicated. 2. Mild small bowel ileus Tohr Peter MD PE at Discharge awake and alert anicteric lungs clear regular rhythm abdomen soft, nontender, good bowel sounds, no guarding extremities no edema neuro exam- unremarkable Pt update on day of discharge good VS no abdominal pain, exam- nontender lungs clear toelrating po well Hospital Course 62 years old male Abdominal pain: Possible ileus S/P colonosocpy- normal except for stools acute worsening LFTS. MRCP report noted. ? r/o stricture LFTs down to near baseline admission recheck now- if stable- DC PP ff up with GI- considering liver biopsy special liver studies blood wrok pending- OP ff up with / [facility] Hypertension: continue meds Acute kidney injury: resolved. good po History of coronary artery disease: Currently asymptomatic. Continue Coreg, aspirin, statin. Hold statins for now with acute elevation of LFTs recheck LFTs as OP- and consider restarting through PCP if continues to stabilize and improve discussed with him Tobacco abuse: Counseled quit smoking. Alcohol abuse: Counseled. DVT prophylaxis: NARCISA Rowell.ambulating 3 pm ADD: LFTs much improved DC today [facility]-through [facility] referral or our local GI special lab works- hepatitis panel and liver blood work- pending- will ff results and send [facility] and [facility] Alarcon Pt Condition on Discharge: Stable Discharge Disposition: Discharge Home Discharge Time: <= 30 minutes Discharge Instructions DIET: Follow Instructions for: Heart Healthy Diet Speech Therapy-Diet Recommends: Regular Activities you can perform: Weight Bearing as Heaven Follow up Referrals: Gastroenterology - 1 Week with Gustavo Alarcon MD PCP Follow-[facility] - [facility]17 [facility] New Medications: Amlodipine (Norvasc) 5 Mg Tab 5 MG PO DAILY for HTN for 30 Days, #30 TAB Continued Medications: Aspirin DR (Aspirin 81) 81 Mg Tabdr 81 MG PO DAILY, TAB 0 Refills Carvedilol (Carvedilol) 6.25 Mg Tab 6.25 MG PO BID, #60 TAB 0 Refills Folic Acid (Folic Acid) 1 Mg Tablet 1 MG DAILY Hydralazine HCl (Hydralazine HCl) 50 Mg Tablet 2 TAB PO TID for Blood Pressure Management, #90 TAB Lisinopril (Lisinopril) 40 Mg Tab 40 MG PO DAILY for Blood Pressure Management, #30 TAB 0 Refills Thiamine (Vitamin B-1) 100 Mg Tab 100 MG PO DAILY for Nutritional Supplement, TAB 1 Refill Discontinued Medications: Atorvastatin (Lipitor) 40 Mg Tab 40 MG PO HS for Cholesterol Management, #30 TAB 0 Refills Lashell Liu MD Sep 29, 2017 15:26
[2017-09-29] MEDS ORDERED: AMLO5 PO (15:29)
[2017-09-29 16:00] VITALS: BP 159/77; PULSE 62; RESP 20; TEMP 98.6; O2SAT 96
[2017-10-01 14:43] LABS: ANA SCREEN NEG (NEG)
== END 2017-09-29 19:07 | disposition home or self-care (01) | DRG 389 ==
LOC: NEPE 21:33 → NEDA 09-26 01:02 → UNDOADMIN 09-26 01:02 → NEDA 09-26 01:23 → INTOOBSV 09-26 01:23 → OBSVTOIN 09-26 02:10 → NEDH 09-26 06:10 → N04B 09-26 13:27
PROVIDERS: ADMIT Internal Medicine; ATTEND Internal Medicine
PROC: 0DJD8ZZ Inspection of Lower Intestinal Tract, Via Natural or Artificial Opening Endoscopic (ICD-10-PCS; principal; 2017-09-27 09:02)
DX: K56.7 Ileus, unspecified (principal); N17.9 Acute kidney failure, unspecified; K86.89 Other specified diseases of pancreas; K83.8 Other specified diseases of biliary tract; I10 Essential (primary) hypertension; I25.10 Atherosclerotic heart disease of native coronary artery without angina pectoris; K21.9 Gastro-esophageal reflux disease without esophagitis; J44.9 Chronic obstructive pulmonary disease, unspecified; I25.2 Old myocardial infarction; E78.5 Hyperlipidemia, unspecified; R00.1 Bradycardia, unspecified; E86.0 Dehydration; N40.0 Benign prostatic hyperplasia without lower urinary tract symptoms; F10.10 Alcohol abuse, uncomplicated; F17.210 Nicotine dependence, cigarettes, uncomplicated; M10.9 Gout, unspecified; Z88.5 Allergy status to narcotic agent; Z95.1 Presence of aortocoronary bypass graft; Z95.5 Presence of coronary angioplasty implant and graft
CPT/HCPCS: 74177; 74181; 76377; 76705; 76937; 80053; 80074; 80076; 81001; 82103; 82105; 82390; 82728; 83520; 83540; 83550; 83690; 83735; 84484; 85025; 86038; 86255; 93005; 96361; 96374; 96375; J2270; J2405; J7030; J7040; Q9967

== ENCOUNTER 2017-10-14 17:43 | Emergency (ER) | payer OTHER ==
[~2017-10-14] VITALS: Ht 180.3 cm; Wt 68.0 kg
[~2017-10-14 17:43] MED LIST changes: -AMLO10 PO; +AMLO5 PO; -INDO50CA PO; -LIPI40TA PO; -RANI150T PO
[2017-10-14 17:55] VITALS: BP 159/82; PULSE 84; RESP 18; TEMP 98.6; O2SAT 98
--- NOTE | 2017-10-14 18:05 | PD ---
HPI Chief Complaint: GI Complaint Time Seen by Provider: 17:56 Travel History International Travel<30 days: No Contact w/Intl Traveler<30days: No Traveled to known affect area: No History of Present Illness HPI 62 y/o male presents to the emergency department with complaint of frequent diarrhea times 4 days. Denies blood or mucus in stool. Patient denies injury or numbness/tingling in pelvic or lower extremities. Denies back pain. Denies nausea, vomiting, fever or chills. Admits to cocaine and ETOH use. Patient also complaint of frequent and burning urination times 4 days. Patient also states that he has recently had sex with questionable partners. He has no other symptoms reported this time. PFSH Past Medical History Hx Anticoagulant Therapy: Yes Asthma: No Blood Disorders: No Anxiety: No Depression: No Heart Rhythm Problems: No Cancer: No Cardiac Catheterization: Yes () Cardiovascular Problems: Yes (5 STENTS) High Cholesterol: Yes Chemotherapy: No Chest Pain: No Congestive Heart Failure: No COPD: Yes Coronary Artery Disease: Yes Diabetes: No Diminished Hearing: No Endocrine: No Gastrointestinal Disorders: Yes (Esophageal banding) Genitourinary: No Hepatitis: Yes (c ) Hypertension: Yes Immune Disorder: No Implanted Vascular Access Dvce: No Musculoskeletal: No Neurologic: No Psychiatric: No Reproductive: No Respiratory: Yes (COPD) Immunizations Current: No Myocardial Infarction: Yes Pancreatitis: Yes Radiation Therapy: No Sleep Apnea: No ?: Not Past Surgical History Abdominal Surgery: Yes (esophageal banding) Appendectomy: Yes Body Medical Devices: CABG x 5 Cardiac Surgery: Yes (CABGx5 ) Cholecystectomy: Yes Coronary Artery Bypass Graft: Yes (2007 5 vessels ) Other Surgery: No Social History Alcohol Use: Yes (EVERY OTHER DAY 4 beers) Tobacco Use: Yes (1/2 PPD) Substance Use: No (hx cocaine use) Allergies-Medications (Allergen,Severity, Reaction): Coded Allergies: hydromorphone (Unverified Allergy, Intermediate, Hives, 09/25/17) metoclopramide (Unverified Allergy, Intermediate, Hives, 09/25/17) Reported Meds & Prescriptions Reported Meds & Active Scripts Active Norvasc (Amlodipine Besylate) 5 Mg Tab 5 Mg PO DAILY 30 Days Lisinopril 40 Mg Tab 40 Mg PO DAILY Carvedilol 6.25 Mg Tab 6.25 Mg PO BID Hydralazine HCl 50 Mg Tablet 2 Tab PO TID Reported Aspirin 81 (Aspirin) 81 Mg Tabdr 81 Mg PO DAILY Review of Systems Except as stated in HPI: all other systems reviewed are Neg Physical Exam Narrative GENERAL: Well nourished male in no apparent distress while in the emergency department. SKIN: Warm and dry. HEAD: Atraumatic. Normocephalic. EYES: Pupils equal and round. No scleral icterus. No injection or drainage. ENT: No nasal bleeding or discharge. Mucous membranes pink and moist. NECK: Trachea midline. No JVD. CARDIOVASCULAR: Regular rate and rhythm. RESPIRATORY: No accessory muscle use. Clear to auscultation. Breath sounds equal bilaterally. GASTROINTESTINAL: Abdomen soft, non-tender, nondistended. Hepatic and splenic margins not palpable. MUSCULOSKELETAL: Extremities without clubbing, cyanosis, or edema. No obvious deformities. NEUROLOGICAL: Awake and alert. No obvious cranial nerve deficits. Motor grossly within normal limits. Five out of 5 muscle strength in the arms and legs. Normal speech. PSYCHIATRIC: Appropriate mood and affect; insight and judgment normal. Data Data Last Documented VS Vital Signs Date Time Temp Pulse Resp B/P (MAP) Pulse Ox O2 Delivery O2 Flow Rate FiO2 10/14/17 21:08 10/14/17 19:55 67 18 99 Room Air 10/14/17 17:55 98.6 Orders Orders Iv Access Insert/Monitor (10/14/17 18:17) Complete Blood Count With Diff (10/14/17 18:17) Basic Metabolic Panel (Bmp) (10/14/17 18:17) Urinalysis - C+S If Indicated (10/14/17 18:17) Gc And Chlamydia Pcr (10/14/17 18:23) Protein Corrected Calcium(Pcc) (10/14/17 18:20) Sodium Chlor 0.9% 1000 Ml Inj (Ns 1000 M (10/14/17 19:45) Calcium Gluconate Inj (Calcium Gluconate (10/14/17 19:45) Electrocardiogram (10/14/17 ) Ed Discharge Order (10/14/17 20:59) Labs Laboratory Tests Test 10/14/17 18:20 White Blood Count 5.4 TH/MM3 Red Blood Count 3.95 MIL/MM3 Hemoglobin 12.3 GM/DL Hematocrit 36.5 % Mean Corpuscular Volume 92.4 FL Mean Corpuscular Hemoglobin 31.1 PG Mean Corpuscular Hemoglobin Concent 33.7 % Red Cell Distribution Width 16.6 % Platelet Count 164 TH/MM3 Mean Platelet Volume 8.9 FL Neutrophils (%) (Auto) 45.4 % Lymphocytes (%) (Auto) 42.5 % Monocytes (%) (Auto) 10.2 % Eosinophils (%) (Auto) 0.6 % Basophils (%) (Auto) 1.3 % Neutrophils # (Auto) 2.5 TH/MM3 Lymphocytes # (Auto) 2.3 TH/MM3 Monocytes # (Auto) 0.6 TH/MM3 Eosinophils # (Auto) 0.0 TH/MM3 Basophils # (Auto) 0.1 TH/MM3 CBC Comment DIFF FINAL Differential Comment Urine Color LIGHT-YELLOW Urine Turbidity CLEAR Urine pH 5.0 Urine Specific [place] 1.004 Urine Protein NEG mg/dL Urine Glucose (UA) NEG mg/dL Urine Ketones NEG mg/dL Urine Occult Blood NEG Urine Nitrite NEG Urine Bilirubin NEG Urine Urobilinogen LESS THAN 2.0 MG/DL Urine Leukocyte Esterase NEG Urine RBC LESS THAN 1 /hpf Urine WBC 2 /hpf Urine Bacteria RARE /hpf Microscopic Urinalysis Comment CULT NOT INDICATED Blood Urea Nitrogen 23 MG/DL Creatinine 1.60 MG/DL Random Glucose 128 MG/DL Total Protein 7.5 GM/DL Calcium Level 7.4 MG/DL Sodium Level 137 MEQ/L Potassium Level 3.9 MEQ/L Chloride Level 107 MEQ/L Carbon Dioxide Level 17.3 MEQ/L Anion Gap 13 MEQ/L Estimat Glomerular Filtration Rate 53 ML/MIN Protein Corrected Calcium 7.3 MG/DL [facility] Medical Decision Making Medical Screen Exam Complete: Yes Emergency Medical Condition: Yes Medical Record Reviewed: Yes Differential Diagnosis gastroenteritis vs colitis vs electrolyte imbalance vs diverticulitis Narrative Course 62-year-old male presents to the emergency department. Patient appears without distress. Abdominal exam benign. Patient is not have decreased rectal tone. Stool is brown. Laboratory Tests Test 10/14/17 18:20 White Blood Count 5.4 TH/MM3 Red Blood Count 3.95 MIL/MM3 Hemoglobin 12.3 GM/DL Hematocrit 36.5 % Mean Corpuscular Volume 92.4 FL Mean Corpuscular Hemoglobin 31.1 PG Mean Corpuscular Hemoglobin Concent 33.7 % Red Cell Distribution Width 16.6 % Platelet Count 164 TH/MM3 Mean Platelet Volume 8.9 FL Neutrophils (%) (Auto) 45.4 % Lymphocytes (%) (Auto) 42.5 % Monocytes (%) (Auto) 10.2 % Eosinophils (%) (Auto) 0.6 % Basophils (%) (Auto) 1.3 % Neutrophils # (Auto) 2.5 TH/MM3 Lymphocytes # (Auto) 2.3 TH/MM3 Monocytes # (Auto) 0.6 TH/MM3 Eosinophils # (Auto) 0.0 TH/MM3 Basophils # (Auto) 0.1 TH/MM3 CBC Comment DIFF FINAL Differential Comment Urine Color LIGHT-YELLOW Urine Turbidity CLEAR Urine pH 5.0 Urine Specific [place] 1.004 Urine Protein NEG mg/dL Urine Glucose (UA) NEG mg/dL Urine Ketones NEG mg/dL Urine Occult Blood NEG Urine Nitrite NEG Urine Bilirubin NEG Urine Urobilinogen LESS THAN 2.0 MG/DL Urine Leukocyte Esterase NEG Urine RBC LESS THAN 1 /hpf Urine WBC 2 /hpf Urine Bacteria RARE /hpf Microscopic Urinalysis Comment CULT NOT INDICATED Blood Urea Nitrogen 23 MG/DL Creatinine 1.60 MG/DL Random Glucose 128 MG/DL Total Protein 7.5 GM/DL Calcium Level 7.4 MG/DL Sodium Level 137 MEQ/L Potassium Level 3.9 MEQ/L Chloride Level 107 MEQ/L Carbon Dioxide Level 17.3 MEQ/L Anion Gap 13 MEQ/L Estimat Glomerular Filtration Rate 53 ML/MIN Protein Corrected Calcium 7.3 MG/DL Patient's calcium was repleted here in the emergency department. He is encouraged to take [id number] calcium supplement. He'll be discharged at this time. Diagnosis Primary Impression: Diarrhea Qualified Codes: R19.7 - Diarrhea, unspecified Additional Impressions: Dysuria Hypocalcemia Referrals: Primary Care Physician Patient Instructions: General Instructions, Hypocalcemia (ED) Additional Instructions: Follow-up with a primary care provider SeeK gastroenterology evaluation symptoms persist Imodium [id number] estrogen on the package as needed for diarrhea Return immediately with any acute worsening symptoms Med/Other Pt SpecificInfo: Prescription(s) given Disposition: 01 DISCHARGE HOME Condition: Stable Lilliana Lentz FRANK Oct 14, 2017 18:05
[2017-10-14 18:33] LABS: AUTOMATED NEUTROPHIL # 2.5 TH/MM3 (1.8-7.7); BASOPHIL # 0.1 TH/MM3 (0-0.2); BASOPHIL % 1.3 % (0.0-2.0); EOSINOPHIL % 0.6 % (0.0-4.0); HEMATOCRIT 36.5 % (39.0-51.0); HEMO FLAGS DIFF FINAL; LYMPH % 42.5 % (9.0-44.0); LYMPHOCYTE # 2.3 TH/MM3 (1.0-4.8); MEAN CELL VOLUME 92.4 FL (80.0-100.0); MEAN CORPUSCULAR HEMOGLOBIN 31.1 PG (27.0-34.0); MEAN CORPUSCULAR HGB CONC 33.7 % (32.0-36.0); MONO % 10.2 % (0.0-8.0); NEUT % 45.4 % (16.0-70.0); PLATELET COUNT 164 TH/MM3 (150-450); RED BLOOD COUNT 3.95 MIL/MM3 (4.50-5.90); RED CELL DISTRIBUTION WIDTH 16.6 % (11.6-17.2); WHITE BLOOD COUNT 5.4 TH/MM3 (4.0-11.0)
[2017-10-14 18:39] LABS: BACTERIA, URINE RARE /hpf; BLOOD, URINE NEG (NEG); COMMENT (UR) CULT NOT INDICATED; CULTURE IF INDICATED CULT NOT INDICATED; GLUCOSE,URINE NEG (NEG); KETONE, URINE NEG (NEG); NITRITE,URINE NEG (NEG); URINE COLOR LIGHT-YELLOW (YELLW/STRAW)
[2017-10-14 18:57] LABS: BICARBONATE 17.3 MEQ/L (21.0-32.0); POTASSIUM 3.9 MEQ/L (3.5-5.1)
[2017-10-14 19:35] LABS: CALCIUM-PROTEIN CORRECTED 7.3 MG/DL (8.5-10.1)
[2017-10-14] MEDS ORDERED: SODIUM CHLOR 0.9% 1000 ML INJ 1,000 ML IV ONE (19:45)
[2017-10-14] MEDS ORDERED: CALCIUM GLUCONATE INJ 1 GM in SODIUM CHLORIDE 0.9% INJ 90 ML IV ONE (19:45)
[2017-10-14 19:55] VITALS: BP 167/80; PULSE 67; RESP 18; O2SAT 99
[2017-10-15 04:17] LABS: CHLAMYDIA PCR NOT DETECTED (NOT DETECT); NEISSERIA PCR NOT DETECTED (NOT DETECT)
--- NOTE | 2017-10-15 07:04 | EKG ---
Date Performed: 10/14/2017 Time Performed: 19:50:53 PTAGE: 62 years EKG: Sinus rhythm WITH OCCASIONAL SUPRAVENTRICULAR PREMATURE COMPLEXES POSSIBLE LEFT ATRIAL ENLARGEMENT LEFT VENTRICUL AR HYPERTROPHY AND ST-T CHANGE ABNORMAL ECG PREVIOUS TRACING : 09/25/2017 22.15 No significant change from previous tracing noted. DOCTOR: Toñito Patel Interpretating Date/Time 10/16/2017 06:52:02
--- NOTE | 2017-10-18 19:30 | PD ---
Physical Exam Narrative GENERAL: Well-nourished, well-developed patient. SKIN: Warm and dry. HEAD: Normocephalic and atraumatic. EYES: No injection or drainage. ENT: No nasal drainage noted. NECK: Supple, trachea midline. CARDIOVASCULAR: Regular rate and rhythm RESPIRATORY: no increased effort. No accessory muscle use. NEUROLOGICAL: Awake. moves extremities. Normal speech. Data Data Last Documented VS Vital Signs Date Time Temp Pulse Resp B/P (MAP) Pulse Ox O2 Delivery O2 Flow Rate FiO2 10/14/17 21:08 10/14/17 19:55 67 18 99 Room Air 10/14/17 17:55 98.6 Orders Orders Iv Access Insert/Monitor (10/14/17 18:17) Complete Blood Count With Diff (10/14/17 18:17) Basic Metabolic Panel (Bmp) (10/14/17 18:17) Urinalysis - C+S If Indicated (10/14/17 18:17) Gc And Chlamydia Pcr (10/14/17 18:23) Protein Corrected Calcium(Pcc) (10/14/17 18:20) Sodium Chlor 0.9% 1000 Ml Inj (Ns 1000 M (10/14/17 19:45) Calcium Gluconate Inj (Calcium Gluconate (10/14/17 19:45) Electrocardiogram (10/14/17 ) Ed Discharge Order (10/14/17 20:59) Labs Laboratory Tests Test 10/14/17 18:20 White Blood Count 5.4 TH/MM3 Red Blood Count 3.95 MIL/MM3 Hemoglobin 12.3 GM/DL Hematocrit 36.5 % Mean Corpuscular Volume 92.4 FL Mean Corpuscular Hemoglobin 31.1 PG Mean Corpuscular Hemoglobin Concent 33.7 % Red Cell Distribution Width 16.6 % Platelet Count 164 TH/MM3 Mean Platelet Volume 8.9 FL Neutrophils (%) (Auto) 45.4 % Lymphocytes (%) (Auto) 42.5 % Monocytes (%) (Auto) 10.2 % Eosinophils (%) (Auto) 0.6 % Basophils (%) (Auto) 1.3 % Neutrophils # (Auto) 2.5 TH/MM3 Lymphocytes # (Auto) 2.3 TH/MM3 Monocytes # (Auto) 0.6 TH/MM3 Eosinophils # (Auto) 0.0 TH/MM3 Basophils # (Auto) 0.1 TH/MM3 CBC Comment DIFF FINAL Differential Comment Urine Color LIGHT-YELLOW Urine Turbidity CLEAR Urine pH 5.0 Urine Specific [place] 1.004 Urine Protein NEG mg/dL Urine Glucose (UA) NEG mg/dL Urine Ketones NEG mg/dL Urine Occult Blood NEG Urine Nitrite NEG Urine Bilirubin NEG Urine Urobilinogen LESS THAN 2.0 MG/DL Urine Leukocyte Esterase NEG Urine RBC LESS THAN 1 /hpf Urine WBC 2 /hpf Urine Bacteria RARE /hpf Microscopic Urinalysis Comment CULT NOT INDICATED Blood Urea Nitrogen 23 MG/DL Creatinine 1.60 MG/DL Random Glucose 128 MG/DL Total Protein 7.5 GM/DL Calcium Level 7.4 MG/DL Sodium Level 137 MEQ/L Potassium Level 3.9 MEQ/L Chloride Level 107 MEQ/L Carbon Dioxide Level 17.3 MEQ/L Anion Gap 13 MEQ/L Estimat Glomerular Filtration Rate 53 ML/MIN Protein Corrected Calcium 7.3 MG/DL Chlamydia trachomatis DNA (PCR) NOT DETECTED Neisseria gonorrhoeae DNA (PCR) NOT DETECTED MDM Supervised Visit with BARBARA: Yes Narrative Course I, Dr. holder, have reviewed the advance practice practitioner's documentation and am in agreement, met with the patient face to face, made the diagnosis, and the medical decision making was done by me. *My assessment and Findings: 62 y/o male with persistent diarrhea, we'll check labs to rule out electrolyte abnormality and to check renal function labs pending at time of my departure Diagnosis Primary Impression: Diarrhea Referrals: Primary Care Physician Sharri Holder MD Oct 18, 2017 19:29
== END 2017-10-14 21:19 | disposition home or self-care (01) ==
LOC: NEPE 17:43
DX: R19.7 Diarrhea, unspecified (principal); R30.0 Dysuria; E83.51 Hypocalcemia; R94.31 Abnormal electrocardiogram [ECG] [EKG]; I10 Essential (primary) hypertension; J44.9 Chronic obstructive pulmonary disease, unspecified; Z79.01 Long term (current) use of anticoagulants
CPT/HCPCS: 80048; 81001; 84155; 85025; 87491; 87591; 93005; 96365; 99284; J0610; J7030

== ENCOUNTER 2017-11-05 19:36 | Observation (INO) | payer OTHER ==
[~2017-11-05] VITALS: Ht 170.2 cm; Wt 65.0 kg
[~2017-11-05 19:36] MED LIST changes: -FOLI1TAB6; -VITA100T54 PO
[2017-11-05 20:12] VITALS: BP 151/87; PULSE 73; RESP 18; TEMP 98; O2SAT 98
[2017-11-05] MEDS ORDERED: ASPIRIN 81 MG CHEW TAB PO ONE (20:15)
[2017-11-05] MEDS ORDERED: SODIUM CHLORIDE 0.9% FLUSH 10 ML FLUSH IVF PRN (20:15)
[2017-11-05 20:20] VITALS: BP_SYST 141; BP_SYST 151; BP_DIAS 87; BP_DIAS 90
--- NOTE | 2017-11-05 20:21 | PD ---
HPI Chief Complaint: back pain Time Seen by Provider: 20:13 Travel History International Travel<30 days: No Contact w/Intl Traveler<30days: No Traveled to known affect area: No History of Present Illness HPI 62-year-old male history of CABG in 2007 presents to the emergency room for evaluation of left-sided neck and left back pain for the past 3 days. Pain is described as burning in the left lateral neck and left middle thoracic back. States it feels the same as when he had a heart attack. He denies chest pain, shortness of breath, nausea, vomiting, or paresthesias. Pain is worsened with certain range of motion. He denies any trauma or injury. States he does not work. He drinks about 8 beers per day. States he has a follow-up appointment with his thread laster in November. He takes lisinopril, hydralazine, carvedilol , Norvasc, and aspirin daily. PFSH Past Medical History Hx Anticoagulant Therapy: Yes Asthma: No Blood Disorders: No Anxiety: No Depression: No Heart Rhythm Problems: No Cancer: No Cardiac Catheterization: Yes (2014- ) Cardiovascular Problems: Yes (5 STENTS) High Cholesterol: Yes Chemotherapy: No Chest Pain: No Congestive Heart Failure: No COPD: Yes Coronary Artery Disease: Yes Diabetes: No Diminished Hearing: No Endocrine: No Gastrointestinal Disorders: Yes (Esophageal banding) Genitourinary: No Hepatitis: Yes (c ) Hypertension: Yes Immune Disorder: No Implanted Vascular Access Dvce: No Musculoskeletal: No Neurologic: No Psychiatric: No Reproductive: No Respiratory: Yes (COPD) Immunizations Current: No Myocardial Infarction: Yes Pancreatitis: Yes Radiation Therapy: No Sleep Apnea: No Past Surgical History Abdominal Surgery: Yes (esophageal banding) Appendectomy: Yes Body Medical Devices: CABG x 5 Cardiac Surgery: Yes (CABGx5 ) Cholecystectomy: Yes Coronary Artery Bypass Graft: Yes (2007 5 vessels ) Other Surgery: No Social History Alcohol Use: Yes (EVERY OTHER DAY 4 beers) Tobacco Use: Yes (1/2 PPD) Substance Use: No (hx cocaine use) Allergies-Medications (Allergen,Severity, Reaction): Coded Allergies: hydromorphone (Unverified Allergy, Intermediate, Hives, 09/25/17) metoclopramide (Unverified Allergy, Intermediate, Hives, 09/25/17) Reported Meds & Prescriptions Reported Meds & Active Scripts Active Norvasc (Amlodipine Besylate) 5 Mg Tab 5 Mg PO DAILY 30 Days Lisinopril 40 Mg Tab 40 Mg PO DAILY Carvedilol 6.25 Mg Tab 6.25 Mg PO BID Hydralazine HCl 50 Mg Tablet 2 Tab PO TID Reported Aspirin 81 (Aspirin) 81 Mg Tabdr 81 Mg PO DAILY Review of Systems Except as stated in HPI: all other systems reviewed are Neg Physical Exam Narrative GENERAL: Well-nourished, well-developed male in no acute distress. Afebrile. Ambulatory. SKIN: Focused skin assessment warm/dry. HEAD: Normocephalic. EYES: No scleral icterus. No injection or drainage. NECK: Supple, trachea midline. No JVD or lymphadenopathy. CARDIOVASCULAR: Regular rate and rhythm without murmurs, gallops, or rubs. RESPIRATORY: Breath sounds equal bilaterally. No accessory muscle use. BACK: Nontender without obvious deformity. No CVA tenderness. Strength 5/5 and equal in upper extremities. Data Data Last Documented VS Vital Signs Date Time Temp Pulse Resp B/P (MAP) Pulse Ox O2 Delivery O2 Flow Rate FiO2 11/05/17 20:20 151/87 (108) 141/90 (107) 11/05/17 20:15 98 Room Air 11/05/17 20:12 98.0 73 18 Orders Orders Electrocardiogram (11/05/17 20:13) Ckmb (Isoenzyme) Profile (11/05/17 20:13) Complete Blood Count With Diff (11/05/17 20:13) Comprehensive Metabolic Panel (11/05/17 20:13) Magnesium (Mg) (11/05/17 20:13) Prothrombin Time / Inr (Pt) (11/05/17 20:13) Act Partial Throm Time (Ptt) (11/05/17 20:13) Troponin I (11/05/17 20:13) Ecg Monitoring (11/05/17 20:13) Bilateral Bp Monitoring (11/05/17 20:13) Iv Access Insert/Monitor (11/05/17 20:13) Oximetry (11/05/17 20:13) Oxygen Administration (11/05/17 20:13) Aspirin Chew (Aspirin Chew) (11/05/17 20:15) Sodium Chloride 0.9% Flush (Ns Flush) (11/05/17 20:15) Acetaminophen (Tylenol) (11/05/17 22:15) Chest, Single Ap (11/05/17 22:39) CKMB (11/05/17 21:57) CKMB% (11/05/17 21:57) Labs Laboratory Tests Test 11/05/17 21:57 White Blood Count 5.2 TH/MM3 Red Blood Count 4.25 MIL/MM3 Hemoglobin 13.7 GM/DL Hematocrit 39.5 % Mean Corpuscular Volume 93.0 FL Mean Corpuscular Hemoglobin 32.2 PG Mean Corpuscular Hemoglobin Concent 34.7 % Red Cell Distribution Width 16.1 % Platelet Count 194 TH/MM3 Mean Platelet Volume 9.2 FL Neutrophils (%) (Auto) 32.3 % Lymphocytes (%) (Auto) 51.9 % Monocytes (%) (Auto) 14.5 % Eosinophils (%) (Auto) 1.2 % Basophils (%) (Auto) 0.1 % Neutrophils # (Auto) 1.7 TH/MM3 Lymphocytes # (Auto) 2.7 TH/MM3 Monocytes # (Auto) 0.7 TH/MM3 Eosinophils # (Auto) 0.1 TH/MM3 Basophils # (Auto) 0.0 TH/MM3 CBC Comment DIFF FINAL Differential Comment Prothrombin Time 10.3 SEC Prothromb Time International Ratio 1.0 RATIO Activated Partial Thromboplast Time 25.4 SEC Blood Urea Nitrogen 17 MG/DL Creatinine 1.46 MG/DL Random Glucose 77 MG/DL Total Protein 7.9 GM/DL Albumin 3.4 GM/DL Calcium Level 7.8 MG/DL Magnesium Level 2.0 MG/DL Alkaline Phosphatase 85 U/L Aspartate Amino Transf (AST/SGOT) 117 U/L Alanine Aminotransferase (ALT/SGPT) 56 U/L Total Bilirubin 0.5 MG/DL Sodium Level 141 MEQ/L Potassium Level 4.6 MEQ/L Chloride Level 114 MEQ/L Carbon Dioxide Level 19.9 MEQ/L Anion Gap 7 MEQ/L Estimat Glomerular Filtration Rate 59 ML/MIN Total Creatine Kinase 175 U/L Troponin I 0.02 NG/ML MDM Medical Decision Making Medical Screen Exam Complete: Yes Emergency Medical Condition: Yes Medical Record Reviewed: Yes Differential Diagnosis CAD, muscle strain, muscle spasm, alcohol abuse Narrative Course 62-year-old male with a history of CABG in 2007 presents to the emergency room for evaluation of left-sided neck burning and back pain for the past 3 days. He denies this chest pain, radiation of symptoms, nausea, vomiting, paresthesias , or shortness of breath. States it is progressively worsening since onset 3 days ago. Denies trauma or injury. Patient states it feels like it did when he had a heart attack in 2007. Of note, he was just recently admitted to the chest pain center on June 2017. Stress test showed partially reversible moderate sized inferior wall defect which could indicate mild ischemia. Patient has a follow-up appointment with a thread laster in November. IV access established and basic labs obtained. Patient given aspirin. EKG shows sinus rhythm with a rate of 74 bpm. Signed off by my attending physician. CBC and CMP are essentially unremarkable except for elevated creatinine of 1.46 which patient has had previously. Troponin is 0.02. Chest x-ray appears negative on wet read. I spoke to my attending physician who states given patient's persistent symptoms that feel similar to previous MIs and previous abnormal stress test, he will be admitted to the chest pain center. Patient is agreeable to plan. Diagnosis Primary Impression: Atypical chest pain Condition: Stable Gretel Marinelli Nov 05, 2017 20:21
[2017-11-05] MEDS ORDERED: ACETAMINOPHEN 325 MG TAB PO ONE (22:15)
[2017-11-05 22:31] LABS: AUTOMATED NEUTROPHIL # 1.7 TH/MM3 (1.8-7.7); BASOPHIL % 0.1 % (0.0-2.0); EOSINOPHIL # 0.1 TH/MM3 (0-0.4); EOSINOPHIL % 1.2 % (0.0-4.0); HEMATOCRIT 39.5 % (39.0-51.0); HEMO FLAGS DIFF FINAL; LYMPH % 51.9 % (9.0-44.0); LYMPHOCYTE # 2.7 TH/MM3 (1.0-4.8); MEAN CORPUSCULAR HEMOGLOBIN 32.2 PG (27.0-34.0); MEAN CORPUSCULAR HGB CONC 34.7 % (32.0-36.0); MONO % 14.5 % (0.0-8.0); NEUT % 32.3 % (16.0-70.0); PLATELET COUNT 194 TH/MM3 (150-450); RED BLOOD COUNT 4.25 MIL/MM3 (4.50-5.90); RED CELL DISTRIBUTION WIDTH 16.1 % (11.6-17.2); WHITE BLOOD COUNT 5.2 TH/MM3 (4.0-11.0)
[2017-11-05 22:45] LABS: APTT (PATIENT) 25.4 SEC (24.3-30.1); PROTHROMBIN TIME - PATIENT 10.3 SEC (9.8-11.6)
[2017-11-05 22:52] LABS: ALKALINE PHOSPHATASE 85 U/L (45-117); ALT (GPT) 56 U/L (12-78); ANION GAP 7 MEQ/L (5-15); AST (GOT) 117 U/L (15-37); BICARBONATE 19.9 MEQ/L (21.0-32.0); BLOOD UREA NITROGEN 17 MG/DL (7-18); CHLORIDE 114 MEQ/L (98-107); CREATINE KINASE 175 U/L (39-308); GLOMERULAR FILTRATION RATE 59 ML/MIN (>89); POTASSIUM 4.6 MEQ/L (3.5-5.1); SODIUM (NA) 141 MEQ/L (136-145); TOTAL BILIRUBIN ADULT 0.5 MG/DL (0.2-1.0)
--- NOTE | 2017-11-05 23:03 | RADRPT ---
EXAM DATE/TIME: 11/05/2017 22:48 [facility] COMPARISON: CHEST SINGLE AP, July 01, 2017, 0:03. INDICATIONS : Chest pain MEDICAL HISTORY : Hypertension. SURGICAL HISTORY : CABG. Cholecystectomy. ENCOUNTER: Initial ACUITY: 1 day PAIN SCORE: 2/10 LOCATION: Bilateral chest FINDINGS: A single view of the chest demonstrates the lungs to be symmetrically aerated without evidence of mas s, infiltrate or effusion. The cardiomediastinal contours are unremarkable. Osseous structures are intact. Evidence of prior median sternotomy and CABG. CONCLUSION: The lungs are clear. Miguel Zazueta MD on November 05, 2017 at 22:59 Board Certified Radiologist. This report was verified electronically.
[2017-11-05 23:05] LABS: CKMB 2.8 NG/ML (0.5-3.6)
[2017-11-05] MEDS ORDERED: IOHEXOL 350 MG/ML 100 ML BTL (for Cath Lab) OTHER ONE (23:10)
[2017-11-05 23:28] VITALS: O2SAT 98
[2017-11-06] VITALS (8 sets, daily range): BP systolic 131–192; BP diastolic 75–93; PULSE 65–80; RESP 18–20; TEMP 98–98.7; O2SAT 98–100
[2017-11-06 02:10] LABS: CREATINE KINASE 156 U/L (39-308)
[2017-11-06 02:25] LABS: CKMB 2.4 NG/ML (0.5-3.6)
[2017-11-06 05:06] LABS: CREATINE KINASE 168 U/L (39-308)
[2017-11-06 05:21] LABS: CKMB 2.6 NG/ML (0.5-3.6)
[2017-11-06] MEDS ORDERED: SODIUM CHLOR 0.9% 1000 ML INJ 1,000 ML IV SCH (08:47)
[2017-11-06] MEDS ORDERED: amLODIPine BESYLATE 5 MG TAB PO SCH (09:00)
[2017-11-06] MEDS: CARVEDILOL 6.25 MG TAB PO SCH ×2 (09:00→20:22)
[2017-11-06] MEDS: LISINOPRIL 20 MG TAB PO SCH (09:00)
[2017-11-06] MEDS: hydrALAZINE HCL 100 MG TAB PO SCH ×3 (09:00→18:00)
[2017-11-06] MEDS: ASPIRIN 325 MG TAB PO SCH (09:00)
--- NOTE | 2017-11-06 09:12 | HHI.HP ---
HPI Primary Care Physician [facility] Chief Complaint Chest pain History of Present Illness This is a 62-year-old male with history of CAD with a CABG in 2007 that presents to ED complaint of a burning discomfort in the center of his chest as well as a achy type of discomfort and left-sided chest and radiates to the back. It began yesterday while lying in bed last about 20 minutes. He recalls being diaphoretic. States the burning sensation is similar to when he needed his bypass in 2007. He had no shortness breath or diaphoresis. Found nothing to worsen or improve the symptoms. Believes he had a recent stress test at this facility. Reviewing records he had an abnormal stress test June 2017 and was treated medically. Patient still using cocaine, last use was 2 days ago. Still drinking alcohol excessively at about 6-8 beers every other day. Voices compliance with most medication however he states he has not taken cholesterol medication in quite some time. Review of Systems General: Patient denies fevers, chills recent, and recent travel HEENT: Patient denies headache, sore throat, difficulty swallowing. Cardiovascular: Has the chest discomfort as mentioned above. Denies sensation of heart beating rapidly or irregularly. No syncope. He was diaphoretic. Respiratory: Denies shortness of breath or inspirational chest discomfort. Denies coughing wheezing or hemoptysis. GI: Patient denies nausea, vomiting, diarrhea, abdominal pain, bloody stools. Musculoskeletal: Patient denies joint pain or edema. Denies calf pain or edema. Neurovascular: Patient denies numbness, tingling, weakness in extremities. Denies headache. Endocrine: Denies polyuria and polydipsia. Hematologic: Denies easy bruising. Skin: Denies rash or itching. Past Family Social History Allergies: Coded Allergies: hydromorphone (Unverified Allergy, Intermediate, Hives, 09/25/17) metoclopramide (Unverified Allergy, Intermediate, Hives, 09/25/17) Past Medical History CAD with a CABG in 2007. Hypertension, hyperlipidemia, tobacco abuse, cocaine abuse, alcohol abuse. Denies diabetes. Past Surgical History CABG in 2007. Cardiac catheterization since then in 2014 revealing patent grafts. Reported Medications Reported Meds & Active Scripts Active Norvasc (Amlodipine Besylate) 5 Mg Tab 5 Mg PO DAILY 30 Days Lisinopril 40 Mg Tab 40 Mg PO DAILY Carvedilol 6.25 Mg Tab 6.25 Mg PO BID Hydralazine HCl 50 Mg Tablet 2 Tab PO TID Reported Aspirin 81 (Aspirin) 81 Mg Tabdr 81 Mg PO DAILY Active Ordered Medications Current Medications Medications (Trade) Dose Ordered Sig/Lino Route Start Time Stop Time Status Last Admin (NS Flush) 2 ml UNSCH PRN IVF 11/05/17 20:15 (NS Flush) 2 ml BID IV FLUSH 11/06/17 09:00 (Norvasc) 5 mg DAILY PO 11/06/17 09:00 (Coreg) 6.25 mg BID PO 11/06/17 09:00 (Apresoline) 100 mg TID PO 11/06/17 09:00 (Prinivil) 40 mg DAILY PO 11/06/17 09:00 (Aspirin) 325 mg DAILY PO 11/06/17 09:00 Sodium Chloride 1,000 ml @ 125 mls/hr Q8H IV 11/06/17 08:47 11/06/17 16:46 Family History There is family history of CAD. Social History Patient continues to smoke cigarettes at about one half pack cigarettes daily. Uses cocaine, last use was 2 days ago. Drinks on average 6-8 beers every other day. Physical Exam Vital Signs Vital Signs Date Time Temp Pulse Resp B/P (MAP) Pulse Ox O2 Delivery O2 Flow Rate FiO2 11/06/17 08:16 98.5 67 18 192/93 (126) 98 11/06/17 07:35 65 11/06/17 04:36 66 11/06/17 01:19 74 11/06/17 01:18 98.7 74 18 131/75 (93) 98 11/05/17 23:47 11/05/17 23:28 98 11/05/17 20:20 151/87 (108) 141/90 (107) 11/05/17 20:15 98 Room Air 11/05/17 20:15 98 Room Air 11/05/17 20:12 98.0 73 18 151/87 (108) 98 Physical Exam GENERAL: This is a well-nourished, well-developed patient, in no apparent distress. Patient speaks in clear complete sentences. Patient is pleasant. HEENT: Head is atraumatic and normocephalic. Neck is supple without lymphadenopathy and trachea is midline. No JVD or carotid bruits. CARDIOVASCULAR: Regular rate and rhythm without murmurs, gallops, or rubs. RESPIRATORY: Clear to auscultation. Breath sounds equal bilaterally. No wheezes , rales, or rhonchi. Chest wall is nontender. No use of accessory muscles. GASTROINTESTINAL: Abdomen is nontender, nondistended. Abdomen soft. No obvious pulsatile mass or bruit. No CVA tenderness. Strong femoral pulses bilaterally. Normal bowel sounds in all quadrants. MUSCULOSKELETAL: Patient is moving upper and lower extremities freely. No calf tenderness or edema, no Homans sign. Strong pulses in upper and lower extremities. NEUROLOGICAL: Patient is alert and oriented. Cranial nerves 2-12 are grossly intact. No focal deficits and speech is clear. SKIN: No rash and turgor is normal. Laboratory Laboratory Tests Test 11/05/17 21:57 11/06/17 01:15 11/06/17 04:15 White Blood Count 5.2 Red Blood Count 4.25 Hemoglobin 13.7 Hematocrit 39.5 Mean Corpuscular Volume 93.0 Mean Corpuscular Hemoglobin 32.2 Mean Corpuscular Hemoglobin Concent 34.7 Red Cell Distribution Width 16.1 Platelet Count 194 Mean Platelet Volume 9.2 Neutrophils (%) (Auto) 32.3 Lymphocytes (%) (Auto) 51.9 Monocytes (%) (Auto) 14.5 Eosinophils (%) (Auto) 1.2 Basophils (%) (Auto) 0.1 Neutrophils # (Auto) 1.7 Lymphocytes # (Auto) 2.7 Monocytes # (Auto) 0.7 Eosinophils # (Auto) 0.1 Basophils # (Auto) 0.0 CBC Comment DIFF FINAL Differential Comment Prothrombin Time 10.3 Prothromb Time International Ratio 1.0 Activated Partial Thromboplast Time 25.4 Blood Urea Nitrogen 17 Creatinine 1.46 Random Glucose 77 Total Protein 7.9 Albumin 3.4 Calcium Level 7.8 Magnesium Level 2.0 Alkaline Phosphatase 85 Aspartate Amino Transf (AST/SGOT) 117 Alanine Aminotransferase (ALT/SGPT) 56 Total Bilirubin 0.5 Sodium Level 141 Potassium Level 4.6 Chloride Level 114 Carbon Dioxide Level 19.9 Anion Gap 7 Estimat Glomerular Filtration Rate 59 Total Creatine Kinase 175 156 168 Creatine Kinase MB 2.8 2.4 2.6 Troponin I 0.02 LESS THAN 0.02 LESS THAN 0.02 Result Diagram: 12/18/17 2157 12/18/17 2157 Imaging Last 48 hours Impressions Chest X-Ray 11/05/179 Signed Impressions: Service Date/Time: Sunday, November 05, 2017 22:48 - CONCLUSION: The lungs are clear. Miguel Zazueta MD Course EKGs are sinus rhythm without significant ST segment depressions or elevations. Caprini VTE Risk Assessment Caprini VTE Risk Assessment: Mod/High Risk (score >= 2) Caprini Risk Assessment Model Point Value = 1 Point Value = 2 Point Value = 3 Point Value = 5 Age 41-60 Minor surgery BMI > 25 kg/m2 Swollen legs Varicose veins or History of unexplained or recurrent spontaneous Oral contraceptives or hormone replacement Sepsis (< 1 month) Serious lung disease, including pneumonia (< 1 month) Abnormal pulmonary function Acute myocardial infarction Congestive heart failure (< 1 month) History of inflammatory bowel disease Medical patient at bed rest Age 61-74 Arthroscopic surgery Major open surgery (> 45 min) Laparoscopic surgery (> 45 min) Malignancy Confined to bed (> 72 hours) Immobilizing plaster cast Central venous access Age >= 75 History of VTE Family history of VTE Factor V Leiden Prothrombin [id number] Lupus anticoagulant Anticardiolipin antibodies Elevated serum homocysteine Heparin-induced thrombocytopenia Other congenital or acquired thrombophilia Stroke (< 1 month) Elective arthroplasty Hip, pelvis, or leg fracture Acute spinal cord injury (< 1 month) Prophylaxis Regimen Total Risk Factor Score Risk Level Prophylaxis Regimen 0-1 Low Early ambulation 2 Moderate Order ONE of the following: *Sequential Compression Device (SCD) *Heparin 5000 units SQ BID 3-4 Higher Order ONE of the following medications: *Heparin 5000 units SQ TID *Enoxaparin/Lovenox 40 mg SQ daily (WT < 150 kg, CrCl > 30 mL/min) *Enoxaparin/Lovenox 30 mg SQ daily (WT < 150 kg, CrCl > 10-29 mL/min) *Enoxaparin/Lovenox 30 mg SQ BID (WT < 150 kg, CrCl > 30 mL/min) AND/OR *Sequential Compression Device (SCD) 5 or more Highest Order ONE of the following medications: *Heparin 5000 units SQ TID (Preferred with Epidurals) *Enoxaparin/Lovenox 40 mg SQ daily (WT < 150 kg, CrCl > 30 mL/min) *Enoxaparin/Lovenox 30 mg SQ daily (WT < 150 kg, CrCl > 10-29 mL/min) *Enoxaparin/Lovenox 30 mg SQ BID (WT < 150 kg, CrCl > 30 mL/min) AND *Sequential Compression Device (SCD) Assessment and Plan Assessment and Plan * Chest pain: Patient had serial cardiac enzymes and EKGs for ruling out purposes and was seen by Dr. Buckley cardiology in the chest pain center. Upon reviewing records he had a abnormal stress test in June. Consultation and cardiology was obtained and was discharged with medical management. Dr. mai Gloria has been consult at, he has evaluated the patient and will be doing a cardiac catheterization likely this afternoon. * Hypertension: Continue current medication. * Hyperlipidemia: Patient stopped taking cluster medication quite some time ago. We'll hold off on restarting statin therapy as his AST is elevated and he drinks alcohol on a regular basis. He should've this followed up on an outpatient basis. He should refrain from alcohol abuse. * Cocaine abuse: Patient is been counseled for some no longer using cocaine. It is explained to him specifically that it could kill him. * Alcohol abuse: Patient is been counseled on the torso no longer drinking alcohol. * Tobacco abuse: Patient has been counseled on importance of smoking cessation. Patient stable at this time. He is agreeable to this plan. Tavares Santiago Nov 06, 2017 09:12
[2017-11-06] MEDS ORDERED: MIDAZOLAM HCL 2 MG/2 ML VIAL ONE (10:09)
[2017-11-06] MEDS ORDERED: HEPARIN-NS/PF INJ 1,000 ML ONE (10:09)
--- NOTE | 2017-11-06 10:27 | HHI.PR ---
Subjective Remarks Transfer care secondary to chest pain. Patient seen by soaking room operator and he will have a cardiac catheterization schedule this morning. Patient stated that he had chest pain. He had no other concerns. Denying nausea or vomiting. Objective Vitals Vital Signs Date Time Temp Pulse Resp B/P (MAP) Pulse Ox O2 Delivery O2 Flow Rate FiO2 11/06/17 08:16 98.5 67 18 192/93 (126) 98 11/06/17 07:35 65 11/06/17 04:36 66 11/06/17 01:19 74 11/06/17 01:18 98.7 74 18 131/75 (93) 98 11/05/17 23:47 11/05/17 23:28 98 11/05/17 20:20 151/87 (108) 141/90 (107) 11/05/17 20:15 98 Room Air 11/05/17 20:15 98 Room Air 11/05/17 20:12 98.0 73 18 151/87 (108) 98 Result Diagram: 11/05/17215611/05/172156 Objective Remarks GENERAL: in NAD CARDIOVASCULAR: Regular rate and rhythm without murmurs, gallops, or rubs. RESPIRATORY: Breath sounds equal bilaterally. No accessory muscle use. GASTROINTESTINAL: Abdomen soft, non-tender, nondistended. Medications and IVs Current Medications Aspirin (Aspirin Chew) 324 mg ONCE ONCE PO Last administered on 11/05/17 20: 46; Start 11/05/17 at 20:15; Stop 11/05/17 at 20:16; Status DC Sodium Chloride (NS Flush) 2 ml UNSCH PRN IVF FLUSH AFTER USING IV ACCESS; Start 11/05/17 at 20:15 Acetaminophen (Tylenol) 650 mg ONCE ONCE PO Last administered on 11/05/17 22 :29; Start 11/05/17 at 22:15; Stop 11/05/17 at 22:16; Status DC Sodium Chloride (NS Flush) 2 ml BID IV FLUSH ; Start 11/06/17 at 09:00 Amlodipine Besylate (Norvasc) 5 mg DAILY PO ; Start 11/06/17 at 09:00 Carvedilol (Coreg) 6.25 mg BID PO ; Start 11/06/17 at 09:00 Hydralazine HCl (Apresoline) 100 mg TID PO ; Start 11/06/17 at 09:00 Lisinopril (Prinivil) 40 mg DAILY PO ; Start 11/06/17 at 09:00 Aspirin (Aspirin) 325 mg DAILY PO ; Start 11/06/17 at 09:00 Sodium Chloride 1,000 ml @ 125 mls/hr Q8H IV ; Start 11/06/17 at 08:47; Stop 11/06/17 at 16:46 Heparin Sodium/ Sodium Chloride 1,000 ml @ As Directed STK-MED ONCE .ROUTE ; Start 11/06/17 at 10:09; Stop 11/06/17 at 10:10; Status DC Midazolam HCl (Versed Inj) 2 mg STK-MED ONCE .ROUTE ; Start 11/06/17 at 10:09; Stop 11/06/17 at 10:10; Status DC Fentanyl Citrate (fentaNYL INJ) 100 mcg STK-MED ONCE .ROUTE ; Start 11/06/17 at 10:09; Stop 11/06/17 at 10:10; Status DC A/P Assessment and Plan 59-year-old male presented with chest pain Chest pain -Patient initially admitted to the chest pain center but was seen by soaking room operator and he is scheduled for cardiac catheterization today. -Continue management per soaking room operator. Layne Pena MD Nov 06, 2017 10:27
[2017-11-06] MEDS ORDERED: hydrALAZINE HCL 20 MG/ML VIAL ONE (10:39)
--- NOTE | 2017-11-06 11:11 | CATHPROC ---
[facility] HIS Report Study Information Study Number Admission Scheduled Start Study Start [id number] Nov 05 2017 11:09PM 11/06/2017 Nov 06 2017 10:04AM Kamuela Service Cardiac Catheterization Admit Source Facility Department Emergency department [facility] - Outside Cutter Hand Physician and Clinical Staff Initial Av [employer] Software Product Specialist Faiza Garg BSN Recorder Evangelina Padilla,RT(R) Scrub Milady Thomson,RT(R) Procedures Performed Procedure Location (Site) Vessel Name Coronary Angiograms LCA Left Coronary Coronary Angiograms RCA Right Coronary Coronary Angiograms PULIDO-LAD Left Coronary Coronary Angiograms SVG-DIAG Left Coronary Coronary Angiograms SVG-OM CIRC Coronary Angiograms SVG-RCA Right Coronary L Heart Cath Wire insertion Fem Art (right) Femoral Art Equipment Time Medical Director Of Hospice Description Size Mfg Part Number Used/Scraped TRANSDUCER, TRUWAVE [id number] 10:25 [employer] * Used W/STOCKCOCK *[id number] INTRODUCER SET, 10:25 [employer] FR 5 [id number] *[id number] Used MICROPUNCTURE, STIFFENED [id number] *[id number] [id number] *[id number] [id number] *[id number] 10:25 [employer] INDUSTRIES PACK, CCL CUSTOM * Used *[id number] 10:25 [employer] WIRE, 3MMJ .035 180CM 180CM Used *[id number] 10:25 NAMIC MANIFOLD, 4 PORT * Used *[id number] 10:25 [employer] OMNIPAQUE, 350 MG, 150ML 150ML [id number] Used [id number] 10:25 [employer] BLANKET,WARM AIR CCL * Used *[id number] 10:25 [employer] MEDICAL SHEATH, FR5 TERUMO (10CM) FR 5 Used *[id number] History: Current Medications Medication Dosage/Unit Route Frequency Last Date/Time Taken ASA NORVASC LISINOPRIL CARVEDILOL History: Allergies Allergy Reaction Dilaudid Hives Reglan Hives hydromorphone Hives metoclopramide Hives History: Risk Factors Family History of Hypertension Dyslipidemia Previous VT Previous Heart Failure Premature CAD Yes Yes No No No Prior Valve Prior PCI Prior CABG Prior CABGDate Surgery No No Yes 11/19/2007 Cerebrovascular Peripheral Artery Chronic Lung On Dialysis Diabetes Disease Disease Disease No No No No No History: Symptoms/Diagnosis Selection Items Chest pain History: Stress Tests Stress or Imaging Studies Performed Yes Standard Exercise Stress Test No Stress Echo No Stress Test SPECT Stress Test SPECT Result Stress Test SPECT Ischemia Risk/Extent Yes Positive Intermediate Stress Test CMR No Cardiac CTA Coronary Calcium Score No No History: Other Current Smoker Method Packs a Day Years Used Pack Years Yes Cigarettes 1 20 20 Labs Hgb (g/dl) Hct (%) WBC (l/cumm) Platelets (thousands) 11.60-17.00 35.00-51.00 4.00-11.00 150.00-450.00 13.7 39.5 5.2 194 Glucose (mg/dl) BUN (mg/dl) Creatinine (mg/dl) BUN:Creatinine (1:x) 74.00-106.00 7.00-18.00 0.50-1.30 10.00-20.00 77 17 1.4 12.1 Na (meq/l) K (meq/l) 136.00-145.00 3.50-5.10 141 4.6 INR (PTT:PT) 0.90-1.10 1 Troponin I (ng/ml) CPK (u/l) CPK-MB (ng/ML) 0.02-0.05 26.00-308.00 0.50-3.60 0.02 168 2.6 Medication Medication Total Dose (Bolus/Oral) Medication Total Dosage/Unit 1% XYLOCAINE 20 mL FENTANYL 50 mcg HYDRALAZINE 10 mg VERSED 1 mg Medications (Bolus/Oral) Medication Time Given Dosage/Unit Administered By Reason 11/06/2017 10:35:36 VERSED 1 mg Faiza Garg AM 1 mg VERSED given in lab by Faiza Garg BSN in Right Forearm via Peripheral IV. Ordered by Av Greenfield 11/06/2017 10:36:00 FENTANYL 50 mcg Faiza Garg AM 50 mcg FENTANYL given in lab by Faiza Garg BSN in Right Forearm via Peripheral IV. Ordered by Av Thompson 11/06/2017 10:36:04 1% XYLOCAINE 20 mL Av Thompson AM 20 mL 1% XYLOCAINE given in lab by Thompson, Vincent G in Right Groin via Subcutaneous. 11/06/2017 10:40:50 HYDRALAZINE 10 mg Faiza Garg AM 10 mg HYDRALAZINE given in lab by Faiza Garg BSN in Right Forearm via Peripheral IV. Ordere d by Av Thompson Medication (Drip) Medication Time Given Dosage/Unit Concentration/Unit Diluent (ml) Solution 11/06/2017 10:04:30 IV Solutions 50 mL (IV) NaCl .9 AM IV Solutions given in lab by Faiza Garg BSN in Right Forearm via Peripheral IV. Pump/Drip F low using NaCl .9. Initial Case Assessment Cardiovascular HR Rhythm NIBP Chest Pain 71 SR 198/101 4 Edema Present Skin color Skin None Normal Warm Circulatory - Right Pulses Dorsalis Pedis Femoral 3 3 Scale (0,1,2,3,4,d) Circulatory - Left Pulses Dorsalis Pedis Femoral 3 3 Scale (0,1,2,3,4,d) Neurological State Oriented to time-place- Alert Moves all extremities person Respiration - General Respiration Rate SpO2 (%) (B/min) 14 100 Chronological Log Time Study Chronological Log 9:57:00 Patient arrived via Bed. 10:04:09 Patient Name, D.O.B, / Armband Verified By R.N. 10:04:10 Consent signed by the physician and the patient and verified by the Outside Cutter Hand staff. 10:04:10 Pre-op and post- op instructions given; patient acknowledges understanding of instructions. 10:04:11 Verbal Stimulation=2 Physical Stimulation=2 Airway=2 Respiration=2 TOTAL=8. (0=absent, 1=li mited, 2=present) 10:04:15 Patient has been NPO for More than 6Hrs. 10:04:16 Skin Breakdown-none per pt 10:04:19 Patient Warmer Placed on the Table. 10:04:20 Kimani Prominences Protected 10:04:22 A # 20 IV was noted in the Forearm (right). Grade = 0 IV Solutions given in lab by Faiza Garg BSN in Right Forearm via Peripheral IV. Pump/ Drip Flow using NaCl 10:04:30 .9. 10:04:42 History and physical on the chart or being dictated. Assessment: Initial Case, HR=71 BPM, Rhythm=SR, QNWV=227/101 mmhg, Chest Pain=4, Edema=None, Color=Normal, Skin = Warm Right Pulses: Mason Ped=3, Femoral=3 10:04:42 Left Pulses: Mason Ped=3, Femoral=3 Neurological: State=Alert, Ox3, KAMINSKI Respiration: Resp=14 B/min, TgZ3=880 % 10:16:28 Bilateral groins prepped with 2% chlorhexidine, and draped after a 3 minute waiting time. Vitals capture started with the following parameters, Patient=Adult, Interval=5 min, Initial Pr ncsvts=345 mmHg, 10:18:07 Deflation Rate=5 mmHg, Cuff placed on Left Arm 10:18:34 MD paged 10:19:24 HR=69 bpm, SUJQ=408/101 mmhg, SpO2=99.0 %, Resp=12 B/min 10:19:53 Pressure channel 1 zeroed. 10:21:43 Reference ECG taken 10:23:40 MD responded 10:23:53 HR=68 bpm, YIOR=989/91 mmhg, XzC5=754.0 %, Resp=19 B/min 10:28:44 MD arrived. 10:28:52 HR=71 bpm, NIOA=892/101 mmhg, SpO2=99.0 %, Resp=13 B/min 10:33:53 HR=66 bpm, XQVX=765/97 mmhg, SpO2=98.0 %, Resp=20 B/min Time Out. Correct patient, correct procedure, correct physician, power injector loaded, or not loaded with contrast with 10:34:49 surgical team present. Time Out Concurred by MD and individual staff in procedure. 10:35:21 Case Start 1 mg VERSED given in lab by Faiza Garg BSN in Right Forearm via Peripheral IV. Ordere d by Jay, 10:35:36 Av Keys 50 mcg FENTANYL given in lab by Faiza Garg BSN in Right Forearm via Peripheral IV. Or dered by aJy, 10:36:00 Av No. 10:36:04 20 mL 1% XYLOCAINE given in lab by Av Thompson in Right Groin via Subcutaneous. 10:37:40 Access site was Right Femoral Artery with micropunture. 10:38:07 A SHEATH, FR5 TERUMO (10CM) FR 5 was advanced into the Fem Art (right) using the Percutaneo us technique. 10:38:52 HR=73 bpm, QKND=176/100 mmhg, SpO2=98.0 %, Resp=17 B/min Recorded Pressure: Ao, HR=76, Condition=Condition 1 10:39:15 (Aorta) Ao 214/85/134 10:39:33 An injection in the Fem Art (right) was made through the SHEATH, FR5 TERUMO (10CM) FR 5. A JR 4.0 INFINITI CATHETER FR 5 was advanced over a wire. OMNIPAQUE, 350 MG, 150ML 150ML was us ed for 10:40:10 injections. 10 mg HYDRALAZINE given in lab by Faiza Garg BSN in Right Forearm via Peripheral IV. Ordered by 10:40:50 Av Thompson 10:41:04 The RCA was injected and visualized at various angles. OMNIPAQUE, 350 MG, 150ML 150ML used . Recorded Pressure: LV, HR=77, Condition=Condition 1 10:41:38 (Left Ventricle) LV 213/-4/9 Recorded Pressure: LV, Ao, HR=78, Condition=Condition 1 10:41:50 (Left Ventricle) LV 198/-2/14, (Aorta) Ao 209/88/138 10:43:23 The SVG-DIAG was injected and visualized at various angles. OMNIPAQUE, 350 MG, 150ML 150ML used. 10:43:49 HR=78 bpm, VCLT=698/95 mmhg, SpO2=96.0 %, Resp=18 B/min 10:44:33 The SVG-OM was injected and visualized at various angles. OMNIPAQUE, 350 MG, 150ML 150ML us ed. 10:46:04 A WIRE, 3MMJ .035 180CM 180CM was inserted via Fem Art (right). 10:46:52 Wire removed 10:48:25 The PULIDO-LAD was injected and visualized at various angles. OMNIPAQUE, 350 MG, 150ML 150ML used. 10:48:50 HR=80 bpm, HESM=273/87 mmhg, SpO2=97.0 %, Resp=19 B/min After removing the current catheter a MPA-2 INFINITI CATHETER FR 5 was advanced over a WIRE, 3M MJ .035 180CM 10:49:29 180CM. 10:52:02 The SVG-RCA was injected and visualized at various angles. OMNIPAQUE, 350 MG, 150ML 150ML u sed. After removing the current catheter a JL 4.0 INFINITI CATHETER FR 5 was advanced over a WIRE, 3 MMJ .035 180CM 10:52:46 180CM. 10:53:45 HR=79 bpm, GYVO=719/93 mmhg, SpO2=97.0 %, Resp=17 B/min Recorded Pressure: Ao, HR=83, Condition=Condition 1 10:54:05 (Aorta) Ao 162/74/112 10:54:51 The LCA was injected and visualized at various angles. OMNIPAQUE, 350 MG, 150ML 150ML use d. 10:56:01 Catheter was removed 10:57:00 Case End 10:58:48 HR=78 bpm, QBIX=743/77 mmhg, SpO2=97.0 %, Resp=16 B/min 11:03:45 UWPD=994/88 mmhg, SpO2=97.0 % 11:04:07 Vitals capture stopped. 11:06:[address], will be removed in Holding Area 11:06:28 Sterile dressing applied to site 11:06:29 No case complications noted. 11:06:51 Cine recording checked. 11:06:52 Bedside Report will be given. 11:07:[facility] A Left Heart Cath was performed. End Study - Contrast Media Used In Study Contrast Total Opened (mL) Total Used (mL) Total Wasted (mL) Omnipaque 90 90 0 End Study - Maximum Contrast Load Max Contrast Load (mL) 232.1 End Study - Radiation Exposure Fluoro Time (minutes) 5.1 End Study - Patient Disposition Complications Transferred To Telemetry Bed
--- NOTE | 2017-11-06 12:45 | MA ---
cc: SANYA CAT DO DATE OF PROCEDURE November 06, 2017 PROCEDURE Left heart catheterization, coronary angiogram, bypass angiogram, moderate sedation 20 minutes. PREPROCEDURE DIAGNOSES Unstable angina. Cocaine abuse. Accelerated hypertension. History of abnormal stress test. POSTPROCEDURE DIAGNOSES CABG x4 (4/4 grafts patent). Cocaine abuse. Accelerated hypertension. MEDICATIONS 1. Versed 1 mg. 2. Fentanyl 50 mcg. 3. Hydralazine 10 mg. CONTRAST USED 90 cc. FLUOROSCOPY 5.1 minutes. MODERATE SEDATION 20 minutes. ESTIMATED BLOOD LOSS 10 cc. PROCEDURAL SUMMARY Kyle Drew is a pleasant 62-year-old male who presented to [facility] due to chest pain. He had a previously abnormal nuclear showing ischemia in the inferior portion and so he was recommended cardiac catheterization. The risks, benefits and alternatives were explained to him and he consented as such. He was brought to lab and prepped in the usual sterile fashion. The right femoral artery was accessed using a modified Seldinger technique and placement of a 5-Egyptian sheath. This was easily aspirated and flushed. A JR-4 was advanced over a J-wire to the ascending aorta and across the aortic valve for measurement of left ventricular pressure. This was pulled back across the aortic valve showing no significant gradient of aortic stenosis. JR-4 was used for selective angiography of the right coronary artery, the SVG to diagonal, SVG to OM, and PULIDO to LAD. This was exchanged out for a multipurpose which was used for selective angiography of the SVG to RCA. This was exchanged out for a JL-4 which was used for selective angiography of the left coronary artery system. JL-4 was removed over a J-wire. The sheath was sutured in place with a plan to remove and pressure held for hemostasis. The patient left the cath lab tech cardiovascularly stable. FINDINGS LEFT MAIN: Normal-sized vessel with no significant disease. It bifurcates into an LAD and circumflex. LAD: 70-80% diffuse disease throughout the proximal to mid-portion. Distally there is competitive flow noted from the PULIDO. It gives off one major diagonal which has 60% disease in the proximal portion and there is competitive flow noted. LEFT CIRCUMFLEX: Normal-sized vessel 90% occlusion in the proximal portion with a 100% in the midportion. RCA: 100% occluded in the proximal portion. PULIDO TO LAD: Patent with no significant disease. It fills the LAD antegrade and retrograde with no significant disease. SVG TO DIAGONAL: Patent with no significant disease, supplying both antegrade and retrograde and upper and lower branch of the first diagonal. SVG TO OBTUSE MARGINAL: Patent with no significant disease. It supplies both antegrade and retrograde second and third obtuse marginal. SVG TO RCA: Patent with no significant disease. It fills antegrade as well as a retrograde back to the mid-RCA. LVEDP: 14. IMPRESSIONS 1. Noncoronary chest pain. 2. Cocaine abuse. 3. Tobacco abuse. 4. Accelerated hypertension, possibly as a cause for chest pain. 5. CABG x4 (4/4 grafts patent). RECOMMENDATIONS 1. Mr. Drew underwent cardiac catheterization and he was found to have no change in his coronary anatomy. He will be recommended continued medical therapy. 2. Overall he needs better blood pressure control. 3. He was spoken to about tobacco use for greater than 3 minutes. 4. I also spoke to him about his cocaine abuse and possible repercussions of this which he understands and is attempting to quit. 5. We will see later today and if stable possible discharge this afternoon versus tomorrow morning. Thank you for allowing me to see Kyle Drew. If there are any questions, please do not hesitate to call. Sanya Cat DO VGP/SSB /11:08 AM /12:21 PM
--- NOTE | 2017-11-06 12:57 | MB ---
cc: SANYA CAT DO DATE OF CONSULTATION November 06, 2017 REASON FOR CONSULTATION Chest pain. HISTORY OF PRESENT ILLNESS Kyle Drew is a pleasant 62-year-old male who presented to [facility] on November 05, 2017, due to chest pain. He states that he gets an achy chest pain on the left side of his chest and sometimes feels it into the left side of his neck. He has had this before and states that this is similar when he is needed his bypass in 2007. He also had two other episodes like this, one being two years ago when he underwent a cardiac catheterization which showed no significant coronary artery disease and bypass grafts open, as well as a second time in June. During the episode in June he underwent a stress test which showed inferior ischemia and but was not recommended cardiac catheterization at the time. He continues to use cocaine around once a week and last used it two days ago. PAST MEDICAL HISTORY 1. Coronary artery disease. 2. Hypertension 3. Hyperlipidemia. 4. Tobacco abuse. 5. Cocaine abuse. 6. Alcohol abuse. PAST SURGICAL HISTORY 1. Coronary artery bypass grafting (July 16, 2008) PULIDO to LAD, SVG to diagonal, SVG to obtuse marginal, SVG to PDA. 2. Cardiac catheterization (July 27, 2015) Left main with no significant disease. Mid-LAD with competitive flow noted. Left circumflex 100% occluded. RCA 100% occluded. SVG to diagonal - No significant disease. SVG to OM with no significant disease. SVG to PDA - no significant disease. PULIDO to LAD- no significant disease. ALLERGIES HYDROMORPHONE. REGLAN. MEDICATIONS 1. Hydralazine 100 mg t.i.d. 2. Coreg 6.25 mg b.i.d. 3. Norvasc 5 mg daily. 4. Lisinopril 40 mg daily. 5. Aspirin 81 mg daily. FAMILY HISTORY Denies premature coronary artery disease or sudden cardiac within the family. SOCIAL HISTORY The patient continues to smoke about a half-pack of cigarettes daily. He uses cocaine around once a week with his last use around 2 days ago. He drinks on average 6-8 beers every other day. REVIEW OF SYSTEMS 14-systems were reviewed including osteopathic pertinent positives and negatives above, otherwise negative. PHYSICAL EXAMINATION VITAL SIGNS: Temperature 98.7, heart rate 74, blood pressure 131/75, respirations 18, pulse ox 98% on room air. IN GENERAL: The patient appears well, in no acute distress, alert, awake and oriented x3. HEENT: Extraocular muscles intact. Mucous membranes moist. NECK: Supple. No JVD at 45 degrees. No carotid bruits heard bilaterally. Carotid upstroke is brisk in nature. HEART: Regular rate and rhythm. Positive first and second heart sounds with no murmurs, gallops or rubs. LUNGS: Clear to auscultation bilaterally. No wheezes, rales or rhonchi. ABDOMEN: Soft, nontender, nondistended. No organomegaly noted. EXTREMITIES: No clubbing, cyanosis or edema. Femoral and distal pulses intact bilaterally. NEUROLOGICALLY: No focal deficits. SKIN: Warm, dry and intact. OSTEOPATHICALLY: No kyphoscoliosis, lordosis or paraspinal tender points. LABORATORY FINDINGS Hemoglobin 13.7, hematocrit 39.5, platelets 194. Potassium 4.6, BUN 17, creatinine 1.46. Troponin negative x3. ELECTROCARDIOGRAM (November 06, 2017 at 05:39) Sinus rhythm, possible left atrial enlargement, LVH with secondary ST-T wave changes. IMPRESSION 1. Atypical chest pain. 2. History of abnormal stress test showing inferior ischemia. 3. Accelerated hypertension. 4. Hyperlipidemia. 5. Cocaine abuse. 6. Alcohol abuse. 7. Tobacco abuse. RECOMMENDATIONS 1. Mr. Drew presented with atypical chest pain but has a history of an abnormal stress test in June of 2017 which showed moderate-sized inferior wall ischemia (intermediate risk class). Because of this he will be recommended cardiac catheterization. 2. I did discuss with him my overall concern with his cocaine use as this does lead to accelerated atherosclerosis but also a higher risk of stent thrombosis and restenosis. In discussions with him he is attempting to quit but is having difficulty. 3. I spoke to him for that greater than 3 minutes about tobacco cessation. 4. Lastly, blood pressure has been quite elevated while here which may be causing him to have accelerated hypertension and chest pain. Overall this is possibly due to his cocaine abuse as well. I would continue him on his current antihypertensive and increase Norvasc if possible. He will continue on the Coreg at this does have some alpha blockade and we need it for overall blood pressure control, but he understands that using cocaine while on Coreg does put him at some risk. 5. Further recommendations will be made after coronary visualization. Thank you for allowing me to see Kyle Drew. If there are any questions, please do not hesitate to call. Sanya Cat DO VGP/SSB /11:19 AM /12:32 PM
--- NOTE | 2017-11-06 15:51 | EKG ---
Date Performed: 11/05/2017 Time Performed: 23:41:46 PTAGE: 62 years EKG: Sinus rhythm POSSIBLE LEFT ATRIAL ENLARGEMENT POSSIBLE LEFT VENTRICULAR HYPERTROPHY NONSPECIFIC T-WAVE ABNORMALIT Y PROLONGED QT INTERVAL ABNORMAL ECG Since PREVIOUS TRACING , no significant change noted DOCTOR: Misti Buckley Interpretating Date/Time 11/06/2017 15:49:34
--- NOTE | 2017-11-06 15:51 | EKG ---
Date Performed: 11/05/2017 Time Performed: 20:04:11 PTAGE: 62 years EKG: Sinus rhythm LEFT ATRIAL ENLARGEMENT POSSIBLE LEFT VENTRICULAR HYPERTROPHY NONSPECIFIC T-WAVE ABNORMALITY PROLONG ED QT INTERVAL ABNORMAL ECG Since PREVIOUS TRACING , no significant change noted PREVIOUS TRACIN10/14/2017 19.50 DOCTOR: Misti Buckley Interpretating Date/Time 11/06/2017 15:48:48
--- NOTE | 2017-11-06 15:52 | EKG ---
Date Performed: 11/06/2017 Time Performed: 03:37:34 PTAGE: 62 years EKG: Sinus rhythm POSSIBLE LEFT ATRIAL ENLARGEMENT POSSIBLE LEFT VENTRICULAR HYPERTROPHY POSSIBLE SEPTAL MYOCARDIAL IN FARCTION Since PREVIOUS TRACING , no significant change noted DOCTOR: Misti Buckley Interpretating Date/Time 11/06/2017 15:50:49
--- NOTE | 2017-11-06 15:53 | EKG ---
Date Performed: 11/06/2017 Time Performed: 05:39:25 PTAGE: 62 years EKG: Sinus rhythm POSSIBLE LEFT ATRIAL ENLARGEMENT POSSIBLE LEFT VENTRICULAR HYPERTROPHY POSSIBLE SEPTAL MYOCARDIAL IN FARCTION Since PREVIOUS TRACING , no significant change noted PREVIOUS TRACIN10/27/2017 22.47 DOCTOR: Misti Buckley Interpretating Date/Time 11/06/2017 15:51:31
[2017-11-06] MEDS: SODIUM CHLORIDE 0.9% FLUSH 10 ML FLUSH IV FLUSH SCH ×2 (20:30→20:35)
[2017-11-06] MEDS: ACETAMINOPHEN 500 MG CPLT PO PRN (20:30)
[2017-11-07] VITALS (8 sets, daily range): BP systolic 125–205; BP diastolic 77–98; PULSE 50–86; RESP 18–20; TEMP 97.2–98.6; O2SAT 98–100
[2017-11-07] MEDS: LISINOPRIL 20 MG TAB PO SCH (06:15)
[2017-11-07] MEDS: ACETAMINOPHEN 500 MG CPLT PO PRN (06:34)
[2017-11-07] MEDS: CARVEDILOL 6.25 MG TAB PO SCH (08:15)
[2017-11-07] MEDS: ASPIRIN 325 MG TAB PO SCH (08:15)
[2017-11-07] MEDS: hydrALAZINE HCL 100 MG TAB PO SCH ×3 (08:21→11:59)
[2017-11-07] MEDS: SODIUM CHLORIDE 0.9% FLUSH 10 ML FLUSH IV FLUSH SCH (09:00)
[2017-11-07] MEDS ORDERED: CARD2TAB PO (11:13)
[2017-11-07] MEDS ORDERED: HYDR-3801 PO (11:13)
[2017-11-07] MEDS ORDERED: AMLO10 PO (11:13)
[2017-11-07] MEDS ORDERED: CARV6.252 PO (11:13)
[2017-11-07] MEDS ORDERED: LISI40TA PO (11:13)
--- NOTE | 2017-11-07 11:18 | PD.CARD.PN ---
Subjective Subjective Remarks Doing well, no chest pain, no SOB Up and showering this morning Objective Medications Current Medications Medications (Trade) Dose Ordered Sig/Lino Route Start Time Stop Time Status Last Admin (NS Flush) 2 ml UNSCH PRN IVF 11/05/17 20:15 (NS Flush) 2 ml BID IV FLUSH 11/06/17 09:00 11/07/17 09:00 (Coreg) 6.25 mg BID PO 11/06/17 09:00 11/07/17 08:15 (Apresoline) 100 mg TID PO 11/06/17 09:00 11/07/17 09:00 (Prinivil) 40 mg DAILY PO 11/06/17 09:00 11/07/17 06:15 (Aspirin) 325 mg DAILY PO 11/06/17 09:00 11/07/17 08:15 (Norvasc) 10 mg DAILY PO 11/07/17 09:00 11/07/17 08:15 (Tylenol) 500 mg Q6H PRN PO 11/06/17 19:30 11/07/17 06:34 Vital Signs / I&O Vital Signs Date Time Temp Pulse Resp B/P (MAP) Pulse Ox O2 Delivery O2 Flow Rate FiO2 11/07/17 10:46 99 21 11/07/17 10:29 167/82 (110) 11/07/17 08:00 97.2 55 20 205/97 (133) 100 11/07/17 07:00 55 11/07/17 04:00 98.6 52 20 198/98 (131) 98 11/07/17 04:00 60 11/07/17 00:00 50 11/07/17 00:00 98.4 60 20 163/77 (105) 99 11/06/17 22:06 98 21 11/06/17 20:00 98.0 70 20 157/91 (113) 100 11/06/17 20:00 68 11/06/17 17:00 80 11/06/17 12:05 100 Room Air I/O 11/06/17 11/06/17 11/06/17 11/07/17 11/07/17 11/07/17 07:00 15:00 23:00 07:00 15:00 23:00 Intake Total 500 ml 600 ml Output Total 300 ml Balance 200 ml 600 ml Intake Oral 500 ml 600 ml Output Urine Total 300 ml # Voids 1 # Bowel Movements 1 Physical Exam GENERAL: NAD, AAOx3 SKIN: Warm and dry. HEAD: Atraumatic. Normocephalic. EYES: Pupils equal and round. No scleral icterus. No injection or drainage. ENT: No nasal bleeding or discharge. Mucous membranes pink and moist. NECK: Trachea midline. No JVD. CARDIOVASCULAR: Regular rate and rhythm. RESPIRATORY: No accessory muscle use. Clear to auscultation. Breath sounds equal bilaterally. GASTROINTESTINAL: Abdomen soft, non-tender, nondistended. Hepatic and splenic margins not palpable. MUSCULOSKELETAL: Extremities without clubbing, cyanosis, or edema. No obvious deformities. Right femoral no hematoma, pulses intact distally NEUROLOGICAL: Awake and alert. No obvious cranial nerve deficits. Motor grossly within normal limits. Five out of 5 muscle strength in the arms and legs. Normal speech. PSYCHIATRIC: Appropriate mood and affect; insight and judgment normal. Laboratory Laboratory Tests Test 11/07/17 02:37 Troponin I 0.09 NG/ML Assessment and Plan Problem List: (1) Atypical chest pain ICD Codes: R07.89 - Other chest pain Status: Acute (2) Hypertension ICD Codes: I10 - Hypertension Status: Chronic (3) S/P CABG x 5 ICD Codes: Z95.1 - S/P CABG x 5 Status: Chronic (4) Hx of coronary artery disease ICD Codes: Z86.79 - Personal history of other diseases of the circulatory system Status: Acute (5) Abnormal nuclear stress test ICD Codes: R94.39 - Abnormal thallium stress test Status: Acute Assessment and Plan 1) CAD with abnormal stress test Cardiac cath yesterday showing no change in previous disease, CABGx4 (4/4 grafts patent) 2) Accelerated HTN Blood pressure better Increase Coreg to 12.5mg BID 3) Minimally elevated trop non-specific with accelerated HTN No change in CAD 4) Cardiovascularly stable for discharge 5) Spoke about cocaine/tobacco cessation Wants to attempt outpatient rehab for cocaine abuse Av Thompson DO Nov 07, 2017 11:18
--- NOTE | 2017-11-07 11:19 | HHI.DCPOC ---
Discharge Care Plan Diagnosis: (1) Hx of coronary artery disease (2) Hypertension (3) Atypical chest pain (4) S/P CABG x 5 (5) Cocaine abuse (6) Tobacco abuse Goals to Promote Your Health * To prevent worsening of your condition and complications * To maintain your health at the optimal level Directions to Meet Your Goals Take your medications as prescribed Follow your dietary instruction Follow activity as directed Keep your appointments as scheduled Take your immunizations and boosters as scheduled If your symptoms worsen call your PCP, if no PCP go to Urgent Care Center or Emergency Room Smoking is Dangerous to Your Health. Avoid second hand smoke Call the 24-hour hour crisis hotline for domestic abuse at Bienvenido Pa MD Nov 07, 2017 11:19
[2017-11-07] MEDS ORDERED: DOXAZOSIN MESYLATE 2 MG TAB PO ONE (12:00)
--- NOTE | 2017-11-07 14:37 | HHI.DS ---
Discharge Summary Admission Date Nov 05, 2017 at 23:09 Discharge Date: Nov 07, 2017 Admitting Diagnosis atypical chest pain CBC/BMP: 11/05/17215611/05/172156 Significant Findings Laboratory Tests Test 11/05/17 21:57 11/06/17 01:15 11/06/17 04:15 11/07/17 02:37 Red Blood Count 4.25 MIL/MM3 (4.50-5.90) Lymphocytes (%) (Auto) 51.9 % (9.0-44.0) Monocytes (%) (Auto) 14.5 % (0.0-8.0) Neutrophils # (Auto) 1.7 TH/MM3 (1.8-7.7) Creatinine 1.46 MG/DL (0.60-1.30) Calcium Level 7.8 MG/DL (8.5-10.1) Aspartate Amino Transf (AST/SGOT) 117 U/L (15-37) Chloride Level 114 MEQ/L (98-107) Carbon Dioxide Level 19.9 MEQ/L (21.0-32.0) Estimat Glomerular Filtration Rate 59 ML/MIN (>89) Troponin I LESS THAN 0.02 NG/ML LESS THAN 0.02 NG/ML 0.09 NG/ML (0.02-0.05) PE at Discharge GENERAL: in NAD CARDIOVASCULAR: Regular rate and rhythm without murmurs, gallops, or rubs. RESPIRATORY: Breath sounds equal bilaterally. No accessory muscle use. GASTROINTESTINAL: Abdomen soft, non-tender, nondistended. Pt Condition on Discharge: Stable Discharge Disposition: Discharge Home Discharge Time: <= 30 minutes Discharge Instructions DIET: Follow Instructions for: Heart Healthy Diet Activities you can perform: Regular-No Restrictions Follow up Referrals: PCP Follow-up New Medications: Amlodipine (Norvasc) 10 Mg Tab 10 MG PO DAILY for Blood Pressure Management, #31 TAB Doxazosin (Cardura) 2 Mg Tab 2 MG PO DAILY for Blood Pressure Management, #31 TAB Hydralazine (Hydralazine) 100 Mg Tab 100 MG PO TID for Blood Pressure Management, #93 TAB Take with meals Continued Medications: Aspirin DR (Aspirin 81) 81 Mg Tabdr 81 MG PO DAILY, TAB 0 Refills Carvedilol (Carvedilol) 6.25 Mg Tab 6.25 MG PO BID for Blood Pressure Management, #60 TAB 0 Refills (This prescription has been renewed) Lisinopril (Lisinopril) 40 Mg Tab 40 MG PO DAILY for Blood Pressure Management, #30 TAB 0 Refills (This prescription has been renewed) Discontinued Medications: Amlodipine (Norvasc) 5 Mg Tab 5 MG PO DAILY for HTN for 30 Days, #30 TAB Hydralazine HCl (Hydralazine HCl) 50 Mg Tablet 2 TAB PO TID for Blood Pressure Management, #90 TAB Bienvenido Pa MD Nov 07, 2017 14:37
[2017-11-08] MEDS ORDERED: DOXAZOSIN MESYLATE 2 MG TAB PO SCH (09:00)
== END 2017-11-07 15:24 | disposition home or self-care (01) ==
LOC: NEPC 19:36 → NEDA 23:09 → NEPFCDU 11-06 00:03 → HCIS 11-06 09:54 → HCIN 11-06 16:37 → HCIS 11-07 11:36
PROVIDERS: ADMIT Hospitalist; ATTEND Hospitalist
DX: R07.89 Other chest pain (principal); R79.89 Other specified abnormal findings of blood chemistry; I45.81 Long QT syndrome; R94.31 Abnormal electrocardiogram [ECG] [EKG]; R61 Generalized hyperhidrosis; I25.82 Chronic total occlusion of coronary artery; M54.9 Dorsalgia, unspecified; I25.10 Atherosclerotic heart disease of native coronary artery without angina pectoris; I10 Essential (primary) hypertension; I25.2 Old myocardial infarction; E78.00 Pure hypercholesterolemia, unspecified; J44.9 Chronic obstructive pulmonary disease, unspecified; K75.9 Inflammatory liver disease, unspecified; F14.10 Cocaine abuse, uncomplicated; F10.10 Alcohol abuse, uncomplicated; F17.210 Nicotine dependence, cigarettes, uncomplicated; Z95.1 Presence of aortocoronary bypass graft; Z79.899 Other long term (current) drug therapy; Z79.82 Long term (current) use of aspirin
CPT/HCPCS: 71010; 80053; 82550; 82552; 83735; 84484; 85025; 85610; 85730; 93005; 93459; 99152; 99153; 99285; C1769; C1893; G0378; J0360; J1644; J2250; J3010; Q9967

== ENCOUNTER 2018-07-13 19:52 | Observation (INO) ==
--- NOTE | 2018-07-13 20:11 | ED ---
HPI General Chief complaint: Chest Pain Stated complaint: Evac/Chest Pain Time Seen by Provider: 07/13/18 20:02 Source: patient Mode of arrival: EMS Limitations: no limitations History of Present Illness HPI narrative: 62-year-old male with history of CAD, CABG 5, hypertension, presents emergency department for evaluation of chest pain, acute onset about 1 hour ago. Patient states that he smoked some crack cocaine and then drinks some beer. He finishes last year when the pain started. It is primarily on his left chest and radiates to his left shoulder blade. He denies any fever or chills. He denies any nausea or vomiting. He states he did feel slightly sweaty and shortness of breath when it happened. Patient was given two nitroglycerin in route and 325 mg aspirin by EVAC. He tells me that it just gave him a headache that did not relieve the pain. It is an 8 out of 10, constant pain. He has no other symptoms to report. Related Data Home Medications Medication Instructions Recorded Confirmed hydrochlorothiazide 25 mg PO QAM 07/13/18 07/13/18 lisinopril 40 mg PO DAILY 07/13/18 07/13/18 Allergies Allergy/AdvReac Type Severity Reaction Status Date / Time hydromorphone Allergy Intermediate Hives Verified 07/13/18 20:11 metoclopramide Allergy Intermediate Hives Verified 07/13/18 20:11 Review of Systems ROS: all other systems reviewed are negative PMFSH History History Provided By: Patient Medical History Medical History Acute alcoholic pancreatitis (Acute) Esophageal and gastric varices (Acute) Heart attack (Acute) High blood pressure (Acute) Social History Social History Substance History: Active Abuse Second Hand Smoke Exposure: Yes Smoking Status: Heavy tobacco smoker Tobacco Type: Cigarettes How Often Do You Have a Drink Containing Alcohol: 4 or more times a week Recent Travel in [facility] within the Last 8 Weeks: No Recent Out of Country Travel within the Last 8 Weeks: No Exam Narrative Exam Narrative: GENERAL: Thin male patient, appears nontoxic and without distress SKIN: Focused skin assessment warm/dry. Vertical scar on the chest and abdomen. HEAD: Atraumatic. Normocephalic. EYES: Pupils equal and round. No scleral icterus. No injection or drainage. ENT: No nasal bleeding or discharge. Mucous membranes pink and moist. NECK: Trachea midline. No JVD. CARDIOVASCULAR: Tachycardic rate and rhythm. No murmur appreciated. RESPIRATORY: No accessory muscle use. Clear to auscultation. Breath sounds equal bilaterally. GASTROINTESTINAL: Abdomen soft, non-tender, nondistended. Hepatic and splenic margins not palpable. MUSCULOSKELETAL: No obvious deformities. No clubbing. No cyanosis. No edema. NEUROLOGICAL: Awake and alert. No obvious cranial nerve deficits. Motor grossly within normal limits. Normal speech. Course Initial Documented Vital Signs Temperature 97.3 F L 07/13/18 20:02 Pulse Rate 101 H 07/13/18 20:02 Respiratory Rate 24 07/13/18 20:02 Blood Pressure 124/77 07/13/18 20:02 Pulse Oximetry 98 07/13/18 20:02 Last Documented Vital Signs Temperature 97.3 F L 07/13/18 20:02 Pulse Rate 101 H 07/13/18 20:02 Respiratory Rate 24 07/13/18 20:02 Blood Pressure 124/77 07/13/18 20:02 Pulse Oximetry 96 07/13/18 20:15 Medical Decision Making BARBARA Attestation BARBARA supervised visit: Yes MDM Narrative Medical decision making narrative: 62-year-old male presents emergency department for evaluation of chest pain. Patient appears without distress. He is treated with morphine for chest pain here. Lab work is reviewed and without acute concern. Troponin is less than 0.02. Patient is hypoglycemic however he has not eaten since breakfast this morning. He did smoke crack cocaine and drink alcohol in the interim. Patient is given a tray of food and Gatorade and juice. His blood sugar does improve. Patient's chest pain is likely secondary to vasospasm secondary to cocaine use. He does not recall stress test within the last year. [facility] He will be admitted to the chest pain center for further evaluation. Medical Screen Exam Complete: Yes Emergency Medical Condition: Yes Differential Diagnosis Differential Diagnosis: ACS versus chest wall pain versus pleuritic pain versus indigestion Lab Data Lab results reviewed: Yes I reviewed the patient's lab results. Result diagrams: 07/13/18 20:15 07/13/18 20:15 Lab Results 08/25/18 08/25/18 08/25/18 Range/Units 20:15 20:15 20:15 WBC 9.7 (4.0-11.0) th/mm3 RBC 4.50 (4.50-5.90) mil/mm3 Hgb 14.4 (13.0-17.0) gm/dL Hct 43.4 (39.0-51.0) % MCV 96.5 (80.0-100.0) fL MCH 32.0 (27.0-34.0) pg MCHC 33.2 (32.0-36.0) % RDW 15.2 (11.6-17.2) % Plt Count 139 L (150-450) th/mm3 MPV 9.9 (7.0-11.0) fL Neut % (Auto) 80.3 H (16.0-70.0) % Lymph % (Auto) 9.3 (9.0-44.0) % [place] % (Auto) 9.7 H (0.0-8.0) % Eos % (Auto) 0.1 (0.0-4.0) % Baso % (Auto) 0.6 (0.0-2.0) % Neut # (Auto) 7.8 H (1.8-7.7) th/mm3 Lymph # (Auto) 0.9 L (1.0-4.8) th/mm3 [place] # (Auto) 0.9 (0.0-0.9) th/mm3 Eos # (Auto) 0.0 (0.0-0.4) th/mm3 Baso # (Auto) 0.1 (0.0-0.2) th/mm3 WBC Differential . Differential Comment Auto diff final PT 10.1 (9.8-11.6) sec INR 1.0 Ratio APTT 23.4 L (24.3-30.1) sec Sodium 143 (136-145) meq/L Potassium 3.7 (3.5-5.1) meq/L Chloride 111 H (98-107) meq/L Carbon Dioxide 11.8 L (21.0-32.0) meq/L Anion Gap 20 H (5-15) meq/L BUN 16 (7-18) mg/dL Creatinine 1.77 H (0.60-1.30) mg/dL Estimated GFR 47 L (>89) mL/min Random Glucose 36 L* (74-106) mg/dL Calcium 8.0 L (8.5-10.1) mg/dL Total Creatine Kinase 279 (39-308) U/L CK-MB (CK-2) 4.3 H (0.5-3.6) ng/mL Troponin I 0.02 (0.02-0.05) ng/mL Imaging Data Radiologist's impression: Chest X-Ray 07/13/18 20:09 CONCLUSION: Status post CABG No evidence of acute cardiopulmonary process. Discharge Plan Discharge Disposition Patient Disposition: 30 Still Patient Discharge Condition Condition: Stable Discharge Details Diagnosis: Chest pain, Cocaine abuse Physicians Team ED Provider: Elsa Pedro ED Midlevel Provider: Lilliana Lentz Primary Care Provider: [facility] [place] R[facility] /Orders / Referrals /Forms Prescriptions: No Action hydrochlorothiazide 25 mg Tablet 25 mg PO QAM RF: 0 lisinopril 40 mg Tablet 40 mg PO DAILY RF: 0 Discharge Instructions Patient Printed Instructions: Chest Pain (ED) Status ED Status: With Doctor
[2018-07-13 20:38] LABS: Baso # (Auto) 0.1 th/mm3 (0.0-0.2); Baso % (Auto) 0.6 % (0.0-2.0); Eos % (Auto) 0.1 % (0.0-4.0); Hematocrit 43.4 % (39.0-51.0); Hemoglobin 14.4 gm/dL (13.0-17.0); Lymph # (Auto) 0.9 th/mm3 (1.0-4.8); Lymph % (Auto) 9.3 % (9.0-44.0); Mean Corpuscular HGB Conc 33.2 % (32.0-36.0); Mean Corpuscular Volume 96.5 fL (80.0-100.0); Mean Platelet Volume 9.9 fL (7.0-11.0); Mono # (Auto) 0.9 th/mm3 (0.0-0.9); Mono % (Auto) 9.7 % (0.0-8.0); Neut # (Auto) 7.8 th/mm3 (1.8-7.7); Neut % (Auto) 80.3 % (16.0-70.0); Platelet Count 139 th/mm3 (150-450); Red Cell Distribution Width 15.2 % (11.6-17.2); White Blood Count 9.7 th/mm3 (4.0-11.0)
--- NOTE | 2018-07-13 20:38 | XR ---
EXAM DATE: 07/13/2018 8:33 PM EDT AGE/SEX: 62 years / Male INDICATIONS: Mid to left sided chest pain. CLINICAL DATA: This is the patient's initial encounter. Patient reports that signs and symptoms have been present for 2 days and indicates a pain score of 5/10. MEDICAL/SURGICAL HISTORY: Hypertension. CABG. COMPARISON: [facility] [place], CHEST 1V SINGLE AP, 06/01/2018. . FINDINGS: A single AP view of the chest demonstrates the lungs to be symmetrically aerated without evidence of mass, infiltrate or effusion. Post surgical changes from prior CABG are noted. The cardiomediastinal contours are otherwise unremarkable. Osseous structures are intact. CONCLUSION: Status post CABG No evidence of acute cardiopulmonary process. Electronically signed by: Kwame Covarrubias MD 07/13/2018 8:36 PM EDT
[2018-07-13 20:41] LABS: Activated Partial Thrombo Time 23.4 sec (24.3-30.1); Prothrombin Time 10.1 sec (9.8-11.6)
[2018-07-13] MEDS ORDERED: Morphine Sulfate Inj 2 MG/ML Vial IV.PUSH ONE (21:04)
[2018-07-13 21:20] LABS: Anion Gap 20 meq/L (5-15); Blood Urea Nitrogen 16 mg/dL (7-18); Carbon Dioxide 11.8 meq/L (21.0-32.0); Chloride 111 meq/L (98-107); Creatine Kinase 279 U/L (39-308); Glomerular Filtration Rate 47 mL/min (>89); Sodium 143 meq/L (136-145); Troponin I 0.02 ng/mL (0.02-0.05)
[2018-07-13 21:22] LABS: Potassium 3.7 meq/L (3.5-5.1)
[2018-07-13 21:25] LABS: Glucose,Random 36 mg/dL (74-106)
[2018-07-13 21:50] LABS: Creatine Kinase MB 4.3 ng/mL (0.5-3.6)
[2018-07-13] MEDS ORDERED: Acetaminophen 500 MG Tablet PO PRN (22:22)
[2018-07-14 01:29] LABS: Troponin I 0.03 ng/mL (0.02-0.05)
[2018-07-14 07:20] LABS: Troponin I 0.05 ng/mL (0.02-0.05)
[2018-07-14] MEDS ORDERED: Dextrose 50% in Water 50 ML Vial IV.PUSH PRN (07:40)
[2018-07-14 08:07] VITALS: TEMP 98.5; O2SAT 97
[2018-07-14] MEDS ORDERED: amLODIPine 5 MG Tablet PO ONE (08:48)
--- NOTE | 2018-07-14 08:48 | P.HPCA ---
History of Present Illness Primary Care Physician: [facility] Chief Complaint: Chest pain History of Present Illness: 62 year old male with history of CABG, hypertension, COPD, hepatitis C, COPD, and current smoker presents to emergency room for further evaluation of chest pain. Onset between 2-3pm. Location left anterior chest with radiation to left tympanic. Characterized quick onset of sharp stabbing pains. Moderate in severity. No associated symptoms of nausea, vomiting, dyspnea, or diaphoresis. Inspiration pain somewhat worse. Duration constant. Current chest discomfort 02/26. Precipitating factors he relates to smoking crack at 0800am. Relieving factors pain medications given in ER decreases pain, pain never completely resolving. No recent illness, cough, fever, or injury. Past cardiac testing 11/06/17 cardiac catheterization (Dr. Thompson) conclusions: 1. Noncoronary chest pain. 2. Cocaine abuse. 3.Tobacco abuse. 4. Accelerated hypertension, possibly as a cause for chest pain. 5. CABG 4 (4x4 grafts patent). - Diagnosis (1) Chest pain (2) Hypertension (3) Tobacco abuse (4) Cocaine abuse (5) Hypoglycemia Review of Systems All other systems reviewed negative except as stated in HPI PMFSH - History History Provided By: Patient - Medical History Medical History: Medical History (Last Updated 07/14/18 @ 08:52 by FRANK Aranog) COPD (chronic obstructive pulmonary disease) Hepatitis C Acute alcoholic pancreatitis Esophageal and gastric varices Heart attack High blood pressure - Surgical History Surgical History: Surgical History (Last Updated 07/14/18 @ 08:53 by FRANK Arango) History of appendectomy S/P CABG x 4 - Tobacco History Second Hand Smoke Exposure: Yes Tobacco Use In Past 30 Days: Yes Smoking Status: Heavy tobacco smoker Tobacco Type: Cigarettes Packs Per Day: 1 - Alcohol History How Often Do You Have a Drink Containing Alcohol: 4 or more times a week - Substance Use History Substance History: Active Abuse - Substance Use Type Crack/Cocaine Status: Active Route Used: Inhalation Last Used: WEEKENDS - Travel History Recent Travel in the [facility] Within the Last 8 Weeks: No Recent Travel Out of the Country Within the Last 8 Weeks: No - Immunization History Tetanus Immunization: <5 Years Hx Influenza Vaccine This Season: Yes Medications and Allergies Active Medications: Active Medications Acetaminophen (Tylenol) 500 mg PO Q4H PRN PRN Reason: HEADACHE Dextrose (D50w Vial) 50 ml IV.PUSH UNSCH PRN PRN Reason: PER HYPOGLYCEMIA PROTOCOL Glucagon (Glucagon Inj) 1 mg OTHER UNSCH PRN PRN Reason: for Hypoglycemia Protocol Hydrochlorothiazide (Hydrodiuril) 25 mg PO QAM [facility] Nitroglycerin (Nitrostat Sl) 0.4 mg SL Q5M PRN PRN Reason: CHEST PAIN Non-Formulary Medication (Lisinopril [Lisinopril]) 40 mg PO DAILY [facility] Ondansetron HCl (Zofran Inj) 4 mg IV.PUSH Q6H PRN PRN Reason: NAUSEA Sodium Chloride (Ns Flush) 2 ml IV.FLUSH PRN PRN PRN Reason: FLUSH AFTER USING IV ACCESS Sodium Chloride (Ns Flush) 2 ml IV.FLUSH BID EMBER Allergies Allergy/AdvReac Type Severity Reaction Status Date / Time hydromorphone Allergy Intermediate Hives Verified 07/13/18 20:11 metoclopramide Allergy Intermediate Hives Verified 07/13/18 20:11 Home Medications Medication Instructions Recorded Confirmed Type hydrochlorothiazide 25 mg PO QAM 07/13/18 07/13/18 History lisinopril 40 mg PO DAILY 07/13/18 07/13/18 History Exam Vital signs: Vital Signs 07/13/18 20:02 07/13/18 20:15 07/14/18 00:00 Temperature 97.3 F L Pulse Rate 101 H 60 Respiratory Rate 24 24 Blood Pressure 124/77 138/78 Pulse Oximetry 98 96 98 07/14/18 04:50 07/14/18 05:23 07/14/18 08:00 Temperature 98.5 F Pulse Rate 60 58 L 53 L Respiratory Rate 22 21 14 Blood Pressure 190/90 H 174/86 H 196/90 H Pulse Oximetry 98 98 97 07/14/18 08:40 Temperature Pulse Rate Respiratory Rate Blood Pressure 200/96 H Pulse Oximetry Intake & Output 07/13/18 07/14/18 07/14/18 18:59 06:59 18:59 Output Total 200 / 200 Balance -200 / -200 Weight 59.421 kg Output: Urine 200 / 200 Narrative: GENERAL: Alert WN, WD, NAD, pleasant, thin, -Citizen Of The [place] male HEAD: NC, AT NECK: Supple, no masses, trachea midline CV: Regular bradycardic rhythm, without murmur, rub, gallop, no JVD. No carotid bruits. RESP: Rhonchi, diminished with expiratory wheeze bilateral bases, no crackles. symmetrical chest rise, nonlabored, able to speak in full sentences ABD: Soft, NT, ND, no masses, positive bowel tones EXT: Pulses +2x4, no dependent edema MS: Normal tone x4 extremities, nontender, no obvious deformities, full range of motion NEURO: CN II through CN XII grossly intact, motor strength 5/5, gait WNL PSYCH: A+O x3, pleasant affect, appropriate speech, mood, insight and judgment SKIN: Normal turgor, normal texture, no lesions, no rashes, brisk cap refill, even hair distribution, surgical chest scar Results 07/13/18 20:15 07/13/18 20:15 Cardiac Enzymes 07/13/18 07/14/18 07/14/18 Range/Units 20:15 00:30 05:15 CK-MB (CK-2) 4.3 H (0.5-3.6) ng/mL Troponin I 0.02 0.03 0.05 (0.02-0.05) ng/mL Coagulation 07/13/18 Range/Units 20:15 PT 10.1 (9.8-11.6) sec APTT 23.4 L (24.3-30.1) sec CBC 07/13/18 Range/Units 20:15 WBC 9.7 (4.0-11.0) th/mm3 RBC 4.50 (4.50-5.90) mil/mm3 Hgb 14.4 (13.0-17.0) gm/dL Hct 43.4 (39.0-51.0) % Plt Count 139 L (150-450) th/mm3 Neut # (Auto) 7.8 H (1.8-7.7) th/mm3 Lymph # (Auto) 0.9 L (1.0-4.8) th/mm3 [place] # (Auto) 0.9 (0.0-0.9) th/mm3 Eos # (Auto) 0.0 (0.0-0.4) th/mm3 Baso # (Auto) 0.1 (0.0-0.2) th/mm3 Comprehensive Metabolic Panel 07/13/18 Range/Units 20:15 Sodium 143 (136-145) meq/L Potassium 3.7 (3.5-5.1) meq/L Chloride 111 H (98-107) meq/L Carbon Dioxide 11.8 L (21.0-32.0) meq/L BUN 16 (7-18) mg/dL Creatinine 1.77 H (0.60-1.30) mg/dL Calcium 8.0 L (8.5-10.1) mg/dL Intake and Output 07/13/18 07/14/18 07/14/18 22:59 06:59 14:59 Output Total 200 / 200 Balance -200 / -200 Output: Urine 200 / 200 Other: Weight 59.421 kg EKG interpretations - EKG EKG results cardiology: sinus rhythm (NSR, LVH with strain pattern) Caprini VTE Risk Assessment Caprini VTE Risk Assessment: Moderate/High Risk (score >= 2) Caprini Risk Assessment Model: Point Value = 1 Point Value = 2 Point Value = 3 Point Value = 5 Age 41-60 Minor surgery BMI > 25 kg/m2 Swollen legs Varicose veins or History of unexplained or recurrent spontaneous Oral contraceptives or hormone replacement Sepsis (< 1 month) Serious lung disease, including pneumonia (< 1 month) Abnormal pulmonary function Acute myocardial infarction Congestive heart failure (< 1 month) History of inflammatory bowel disease Medical patient at bed rest Age 61-74 Arthroscopic surgery Major open surgery (> 45 min) Laparoscopic surgery (> 45 min) Malignancy Confined to bed (> 72 hours) Immobilizing plaster cast Central venous access Age >= 75 History of VTE Family history of VTE Factor V Leiden Prothrombin [id number] Lupus anticoagulant Anticardiolipin antibodies Elevated serum homocysteine Heparin-induced thrombocytopenia Other congenital or acquired thrombophilia Stroke (< 1 month) Elective arthroplasty Hip, pelvis, or leg fracture Acute spinal cord injury (< 1 month) Prophylaxis Regimen: Total Risk Factor Score Risk Level Prophylaxis Regimen 0-1 Low Early ambulation 2 Moderate Order ONE of the following: *Sequential Compression Device (SCD) *Heparin 5000 units SQ BID 3-4 Higher Order ONE of the following medications: *Heparin 5000 units SQ TID *Enoxaparin/Lovenox 40 mg SQ daily (WT < 150 kg, CrCl > 30 mL/min) *Enoxaparin/Lovenox 30 mg SQ daily (WT < 150 kg, CrCl > 10-29 mL/min) *Enoxaparin/Lovenox 30 mg SQ BID (WT < 150 kg, CrCl > 30 mL/min) AND/OR *Sequential Compression Device (SCD) 5 or more Highest Order ONE of the following medications: *Heparin 5000 units SQ TID (Preferred with Epidurals) *Enoxaparin/Lovenox 40 mg SQ daily (WT < 150 kg, CrCl > 30 mL/min) *Enoxaparin/Lovenox 30 mg SQ daily (WT < 150 kg, CrCl > 10-29 mL/min) *Enoxaparin/Lovenox 30 mg SQ BID (WT < 150 kg, CrCl > 30 mL/min) AND *Sequential Compression Device (SCD) Assessment and Plan - Assessment (1) Chest pain Code(s): R07.9 - Chest pain, unspecified Status: Acute Plan: Admitted chest pain center. ACS ruled out with 3 sets of EKGs and cardiac enzymes. Will be seen evaluated by Dr. Nikos Marcus. Likely no further cardiac testing, discomfort likely related to hypertension and recent cocaine use. Recent cardiac catheterization October 2017 revealing all 4 grafts patent. (2) Hypertension Code(s): I10 - Essential (primary) hypertension Status: Chronic Plan: Continue lisinopril and hydrochlorothiazide. Add amlodipine 5 mg daily. clonidine 0.1 mg PO x1 dose now for systolic pressure 200. (3) Tobacco abuse Code(s): Z72.0 - Tobacco use Status: Chronic Plan: Strongly encouraged stress importance of tobacco cessation. Instructed to quit smoking. (4) Cocaine abuse Code(s): F14.10 - Cocaine abuse, uncomplicated Status: Acute Plan: Discussed risk with cocaine use including but not limited to heart attack using cocaine. (5) Hypoglycemia Code(s): E16.2 - Hypoglycemia, unspecified Status: Resolved Plan: Glucose 36 on admission laboratory studies. RN rechecked glucose 8 AM, results of BGM 80. Patient denies any history of hypoglycemia. Resolved currently. Instructed to follow up with primary care provider upon discharge for further monitoring. (1) Chest pain Qualifiers: Chest pain type: unspecified Qualified Code(s): R07.9 - Chest pain, unspecified (2) Hypertension Qualifiers: Hypertension type: unspecified Qualified Code(s): I10 - Essential (primary) hypertension
[2018-07-14] MEDS ORDERED: hydroCHLOROthiazide 25 MG Tablet PO SCH (09:00)
[2018-07-14] MEDS ORDERED: Lisinopril 20 MG Tablet PO SCH (09:00)
[2018-07-14 09:39] VITALS: RESP 20
[2018-07-14] MEDS ORDERED: RESP: Albuterol Concentrated 2.5 MG/0.5 ML Neb NEB ONE (10:00)
--- NOTE | 2018-07-14 10:22 | P.PNCA ---
Subjective Interval history: Patient was presented by the nurse practitioner his documentation was reviewed and then he was personally seen and examined. I am in agreement with the documentation. Plan for further evaluation and course were discussed and agreed upon. Physical Exam Vital signs: Vital Signs 07/13/18 20:02 07/13/18 20:15 07/14/18 00:00 Temperature 97.3 F L Pulse Rate 101 H 60 Respiratory Rate 24 24 Blood Pressure 124/77 138/78 Pulse Oximetry 98 96 98 07/14/18 04:50 07/14/18 05:23 07/14/18 08:00 Temperature 98.5 F Pulse Rate 60 58 L 53 L Respiratory Rate 22 21 14 Blood Pressure 190/90 H 174/86 H 196/90 H Pulse Oximetry 98 98 97 07/14/18 08:40 07/14/18 09:38 Temperature Pulse Rate 80 Respiratory Rate 20 Blood Pressure 200/96 H Pulse Oximetry Intake & Output 07/13/18 07/14/18 07/14/18 18:59 06:59 18:59 Output Total 200 / 200 Balance -200 / -200 Weight 59.421 kg Output: Urine 200 / 200 Narrative: Somewhat thin black male resting comfortably in bed Eyes PERRLA EOMI sclera clear Mouth mucous membranes moist no lesions Neck supple no JVD masses nodes or bruits Chest diminished breath sounds but no rales wheezes or rhonchi Cardiovascular well-healed sternotomy scar rhythm is regular there is a grade 2/ 6 to 3/6 systolic murmur radiating from the apex towards the right clavicle but no gallop or rub Abdomen soft nontender no guarding or rebound Extremities thin no clubbing cyanosis or edema Assessment and Plan - Assessment (1) Chest pain Code(s): R07.9 - Chest pain, unspecified Status: Acute Plan: Admitted chest pain center. ACS ruled out with 3 sets of EKGs and cardiac enzymes. Will be seen evaluated by Dr. Nikos Marcus. Likely no further cardiac testing, discomfort likely related to hypertension and recent cocaine use. Recent cardiac catheterization October 2017 revealing all 4 grafts patent. After discussion I am in full agreement with the plan as stated above. Somewhat intense discussion was carried out with patient in regard to his very high risk and need to significantly change his lifestyle with the hopes to live. Patient seems to be responsive to this but doubtful if he will carry it (2) Hypertension Code(s): I10 - Essential (primary) hypertension Status: Chronic Plan: Continue lisinopril and hydrochlorothiazide. Add amlodipine 5 mg daily. clonidine 0.1 mg PO x1 dose now for systolic pressure 200. (3) Tobacco abuse Code(s): Z72.0 - Tobacco use Status: Chronic Plan: Strongly encouraged stress importance of tobacco cessation. Instructed to quit smoking. (4) Cocaine abuse Code(s): F14.10 - Cocaine abuse, uncomplicated Status: Acute Plan: Discussed risk with cocaine use including but not limited to heart attack using cocaine. (1) Chest pain Qualifiers: Chest pain type: unspecified Qualified Code(s): R07.9 - Chest pain, unspecified (2) Hypertension Qualifiers: Hypertension type: unspecified Qualified Code(s): I10 - Essential (primary) hypertension
[2018-07-14 11:31] VITALS: BP 145/67; PULSE 52
--- NOTE | 2018-07-14 11:58 | ECG ---
Date Performed: 07/14/2018 Time Performed: 05:14:31 PTAGE: 62 years EKG: SINUS BRADYCARDIA WITH SINUS ARRHYTHMIA POSSIBLE LEFT VENTRICULAR HYPERTROPHY PROLONGED QT INTERVAL ABNORMAL ECG Possible anterior septal MS age undetermined but largely unchanged from prior t racing PREVIOUS TRACING : 07/14/2018 00.29 DOCTOR: Nikos Marcus Interpretating Date/Time 07/14/2018 11:57:44
--- NOTE | 2018-07-14 11:59 | ECG ---
Date Performed: 07/14/2018 Time Performed: 00:28:48 PTAGE: 62 years EKG: Sinus rhythm POSSIBLE LEFT ATRIAL ENLARGEMENT LEFT VENTRICULAR HYPERTROPHY AND ST-T CHANGE ABNORMAL ECG PREVIOUS TRACING : 07/13/2018 20.00 DOCTOR: Nikos Marcus Interpretating Date/Time 07/14/2018 11:58:17
--- NOTE | 2018-07-14 12:00 | ECG ---
Date Performed: 07/13/2018 Time Performed: 20:00:34 PTAGE: 62 years EKG: SINUS TACHYCARDIA LEFT ATRIAL ENLARGEMENT LEFT VENTRICULAR HYPERTROPHY AND ST-T CHANGE ABNO RMAL ECG Rate has increased since prior tracing with some inferior lateral ST depression cannot rule out ischemia PREVIOUS TRACING : 06/01/2018 00.52 DOCTOR: Nikos Marcus Interpretating Date/Time 07/14/2018 11:59:25
== END 2018-07-14 13:03 | disposition home or self-care (01) ==
LOC: NEDA 19:52 → NEPC 19:52 → NEPHCDU 07-14 06:16
PROVIDERS: ADMIT Internal Medicine Interventional Cardiology; ATTEND Internal Medicine Interventional Cardiology

== ENCOUNTER 2018-10-05 19:27 | Observation (INO) ==
[2018-10-05 19:54] LABS: Baso # (Auto) 0.1 th/mm3 (0.0-0.2); Baso % (Auto) 1.9 % (0.0-2.0); Eos # (Auto) 0.1 th/mm3 (0.0-0.4); Eos % (Auto) 2.3 % (0.0-4.0); Hematocrit 38.9 % (39.0-51.0); Hemoglobin 13.4 gm/dL (13.0-17.0); Lymph # (Auto) 3.1 th/mm3 (1.0-4.8); Lymph % (Auto) 51.1 % (9.0-44.0); Mean Corpuscular HGB Conc 34.4 % (32.0-36.0); Mean Corpuscular Hemoglobin 33.3 pg (27.0-34.0); Mean Corpuscular Volume 96.9 fL (80.0-100.0); Mean Platelet Volume 8.9 fL (7.0-11.0); Mono # (Auto) 0.7 th/mm3 (0.0-0.9); Mono % (Auto) 11.4 % (0.0-8.0); Neut % (Auto) 33.3 % (16.0-70.0); Platelet Count 201 th/mm3 (150-450); Red Blood Count 4.01 mil/mm3 (4.50-5.90); Red Cell Distribution Width 13.5 % (11.6-17.2); White Blood Count 6.1 th/mm3 (4.0-11.0)
[2018-10-05 20:18] LABS: Albumin 3.2 g/dL (3.4-5.0); Anion Gap 12 meq/L (5-15); Blood Urea Nitrogen 18 mg/dL (7-18); Calcium 7.5 mg/dL (8.5-10.1); Carbon Dioxide 17.7 meq/L (21.0-32.0); Chloride 110 meq/L (98-107); Glomerular Filtration Rate 56 mL/min (>89); Glucose,Random 81 mg/dL (74-106); Potassium 4.3 meq/L (3.5-5.1); Sodium 140 meq/L (136-145)
[2018-10-05 20:19] LABS: Alanine Aminotransferase 29 U/L (12-78); Aspartate Aminotransferase 55 U/L (15-37)
[2018-10-05 20:23] LABS: Alkaline Phosphatase 79 U/L (45-117); Total Protein 7.4 g/dL (6.4-8.2); Troponin I 0.02 ng/mL (0.02-0.05)
--- NOTE | 2018-10-05 20:34 | XR ---
EXAM DATE: 10/05/2018 8:20 PM EST AGE/SEX: 63 years / Male INDICATIONS: Chest and back pain today. CLINICAL DATA: This is the patient's initial encounter. Patient reports that signs and symptoms have been present for 1 day and indicates a pain score of 4/10. MEDICAL/SURGICAL HISTORY: . Hypertension. CABG. COMPARISON: [facility], CHEST 1V SINGLE AP, 07/13/2018. [facility], CHEST 1V SINGLE AP, 06/01/2018. [facility], CHEST SINGLE AP, 11/05/2017. . FINDINGS: Frontal view of the chest infiltrates the lungs to be symmetrically aerated. There is a small opacity in the region of the left costophrenic angle which is a new finding from prior exam and could repres ent infiltrate or pleural effusion. Evidence of prior median sternotomy and CABG. The heart is normal in size. CONCLUSION: Small opacity in the left costophrenic angle could represent small pleural effusion or focal infiltra te. Electronically signed by: Miguel Zazueta MD 10/05/2018 8:33 PM EST
[2018-10-05 20:49] LABS: Amphetamine Screen,Urine Neg (Neg); Barbiturate Screen,Urine Neg (Neg); Cannabinoid Screen,Urine Neg (Neg); Cocaine Screen,Urine Pos (Neg)
[2018-10-05 20:51] LABS: Opiate Screen,Urine Neg (Neg)
--- NOTE | 2018-10-05 22:08 | ED ---
HPI General Chief Complaint: Chest Pain Stated Complaint: Chest pain Time Seen by Provider: 10/05/18 19:42 Source: patient and EMS Mode of arrival: EMS Limitations: no limitations History of Present Illness HPI narrative: 63-year-old male came to the emergency room brought by EMS for left-sided chest pain area patient says that the pain has been going on for past 6 hours. It has been continuous. It feels like an elephant sitting on his chest. Patient has history of coronary artery disease and has had CABG couple years ago. Currently he follows up in [place] with cardiology. Patient says he sees cardiology once a year. He received 4 baby aspirins on route. Upon asking patient said that he did cocaine last week. Vital signs were relatively stable. No aggravating or relieving symptoms identified for the pain. Related Data Previous Rx's Medication Instructions Recorded amlodipine 5 mg PO DAILY #30 tab 10/06/18 hydrochlorothiazide 25 mg PO QAM #30 tab 10/06/18 lisinopril 40 mg PO DAILY #30 tab 10/06/18 Allergies Allergy/AdvReac Type Severity Reaction Status Date / Time hydromorphone Allergy Intermediate Hives Verified 10/05/18 19:40 metoclopramide Allergy Intermediate Hives Verified 10/05/18 19:40 Review of Systems ROS: all other systems reviewed are negative [facility] Medical History Medical History Acute alcoholic pancreatitis (Acute) COPD (chronic obstructive pulmonary disease) (Acute) Coronary artery disease (Acute) Esophageal and gastric varices (Acute) Heart attack (Acute) Hepatitis C (Acute) High blood pressure (Acute) Surgical History Surgical History History of appendectomy (Acute) S/P CABG x 4 (Acute) Social History Social History Substance History: Active Abuse Second Hand Smoke Exposure: No Smoking Status: Current every day smoker Tobacco Type: Cigarettes Packs Per Day: 0.5 Cigarettes Per Day: 10.0 How Often Do You Have a Drink Containing Alcohol: 4 or more times a week (2-4 beers) Hx Recent Travel: No Recent Travel in [facility] within the Last 8 Weeks: No Recent Out of Country Travel within the Last 8 Weeks: No Immunization History Tetanus Immunization: <5 Years Exam Narrative Exam Narrative: GENERAL: Intoxicated, slurred speech but answering questions appropriately, no obvious distress SKIN: Focused skin assessment warm/dry. HEAD: Atraumatic. Normocephalic. EYES: Pupils equal and round. No scleral icterus. No injection or drainage. ENT: No nasal bleeding or discharge. Mucous membranes pink and moist. NECK: Trachea midline. No JVD. CARDIOVASCULAR: Regular rate and rhythm. No murmur appreciated. RESPIRATORY: No accessory muscle use. Clear to auscultation. Breath sounds equal bilaterally. GASTROINTESTINAL: Abdomen soft, non-tender, nondistended. Hepatic and splenic margins not palpable. MUSCULOSKELETAL: No obvious deformities. No clubbing. No cyanosis. No edema. NEUROLOGICAL: Awake but intoxicated, GCS of 15. No obvious cranial nerve deficits. Motor grossly within normal limits. Slurred speech. PSYCHIATRIC: Appropriate mood and affect; insight and judgment normal. Course Initial Documented Vital Signs Temperature 98 F 10/05/18 19:36 Pulse Rate 66 10/05/18 19:36 Respiratory Rate 20 10/05/18 19:36 Blood Pressure 157/98 H 10/05/18 19:36 Pulse Oximetry 98 10/05/18 19:36 Last Documented Vital Signs Temperature 98.8 F 10/06/18 12:35 Pulse Rate 79 10/06/18 12:35 Respiratory Rate 20 10/06/18 08:00 Blood Pressure 181/78 H 10/06/18 12:35 Pulse Oximetry 100 10/06/18 12:35 Medical Decision Making [facility] Narrative Medical decision making narrative: 10:06 PM blood test results are back and within acceptable limits. Patient has some renal insufficiency that is old. Urine drug screen was positive for cocaine. I went back and asked the patient once again the last time he had used cocaine and this time he said it was couple days ago. Patient was given Toradol for his chest pain. He will be admitted to the chest pain center for ACS rule out. Medical Screen Exam Complete: Yes Emergency Medical Condition: Yes Lab Data Result diagrams: 10/05/18 19:45 10/05/18 19:45 Lab Results 10/05/18 10/05/18 10/05/18 Range/Units 14:45 19:45 19:45 WBC 6.1 (4.0-11.0) th/mm3 RBC 4.01 L (4.50-5.90) mil/mm3 Hgb 13.4 (13.0-17.0) gm/dL Hct 38.9 L (39.0-51.0) % MCV 96.9 (80.0-100.0) fL MCH 33.3 (27.0-34.0) pg MCHC 34.4 (32.0-36.0) % RDW 13.5 (11.6-17.2) % Plt Count 201 (150-450) th/mm3 MPV 8.9 (7.0-11.0) fL Neut % (Auto) 33.3 (16.0-70.0) % Lymph % (Auto) 51.1 H (9.0-44.0) % [place] % (Auto) 11.4 H (0.0-8.0) % Eos % (Auto) 2.3 (0.0-4.0) % Baso % (Auto) 1.9 (0.0-2.0) % Neut # (Auto) 2.0 (1.8-7.7) th/mm3 Lymph # (Auto) 3.1 (1.0-4.8) th/mm3 [place] # (Auto) 0.7 (0.0-0.9) th/mm3 Eos # (Auto) 0.1 (0.0-0.4) th/mm3 Baso # (Auto) 0.1 (0.0-0.2) th/mm3 WBC Differential . Differential Comment Auto diff final Sodium 140 (136-145) meq/L Potassium 4.3 (3.5-5.1) meq/L Chloride 110 H (98-107) meq/L Carbon Dioxide 17.7 L (21.0-32.0) meq/L Anion Gap 12 (5-15) meq/L BUN 18 (7-18) mg/dL Creatinine 1.52 H (0.60-1.30) mg/dL Estimated GFR 56 L (>89) mL/min Random Glucose 81 (74-106) mg/dL Calcium 7.5 L (8.5-10.1) mg/dL Total Bilirubin 0.4 (0.2-1.0) mg/dL AST 55 H (15-37) U/L ALT 29 (12-78) U/L Alkaline Phosphatase 79 (45-117) U/L Total Creatine Kinase (39-308) U/L Troponin I 0.02 (0.02-0.05) ng/mL Total Protein 7.4 (6.4-8.2) g/dL Albumin 3.2 L (3.4-5.0) g/dL Urine Opiates Screen (Neg) Ur Barbiturates Screen (Neg) Ur Amphetamines Screen (Neg) U Benzodiazepines Scrn (Neg) Urine Cocaine Screen (Neg) U Cannabinoids Screen (Neg) 10/05/18 10/05/18 10/06/18 Range/Units 20:30 23:10 03:00 WBC (4.0-11.0) th/mm3 RBC (4.50-5.90) mil/mm3 Hgb (13.0-17.0) gm/dL Hct (39.0-51.0) % MCV (80.0-100.0) fL MCH (27.0-34.0) pg MCHC (32.0-36.0) % RDW (11.6-17.2) % Plt Count (150-450) th/mm3 MPV (7.0-11.0) fL Neut % (Auto) (16.0-70.0) % Lymph % (Auto) (9.0-44.0) % [place] % (Auto) (0.0-8.0) % Eos % (Auto) (0.0-4.0) % Baso % (Auto) (0.0-2.0) % Neut # (Auto) (1.8-7.7) th/mm3 Lymph # (Auto) (1.0-4.8) th/mm3 [place] # (Auto) (0.0-0.9) th/mm3 Eos # (Auto) (0.0-0.4) th/mm3 Baso # (Auto) (0.0-0.2) th/mm3 WBC Differential Differential Comment Sodium (136-145) meq/L Potassium (3.5-5.1) meq/L Chloride (98-107) meq/L Carbon Dioxide (21.0-32.0) meq/L Anion Gap (5-15) meq/L BUN (7-18) mg/dL Creatinine (0.60-1.30) mg/dL Estimated GFR (>89) mL/min Random Glucose (74-106) mg/dL Calcium (8.5-10.1) mg/dL Total Bilirubin (0.2-1.0) mg/dL AST (15-37) U/L ALT (12-78) U/L Alkaline Phosphatase (45-117) U/L Total Creatine Kinase 198 191 (39-308) U/L Troponin I 0.03 0.03 (0.02-0.05) ng/mL Total Protein (6.4-8.2) g/dL Albumin (3.4-5.0) g/dL Urine Opiates Screen Neg (Neg) Ur Barbiturates Screen Neg (Neg) Ur Amphetamines Screen Neg (Neg) U Benzodiazepines Scrn Neg (Neg) Urine Cocaine Screen Pos H (Neg) U Cannabinoids Screen Neg (Neg) Imaging Data Radiologist's impression: Chest X-Ray 10/05/18 19:42 CONCLUSION: Small opacity in the left costophrenic angle could represent small pleural effusion or focal infiltrate. ECG Data Attestation: I personally reviewed and interpreted this ECG as follows: Interpretation: Twelve-lead EKG was reviewed by me. Normal sinus rhythm, normal axis, poor R wave progression early, LVH by voltage criteria. Heart rate of 70 bpm. Discharge Plan Discharge Disposition Patient Disposition: 30 Still Patient Discharge Condition Condition: Good Discharge Order Discharge Orders: Discharge Order (Routine); Ordered 10/06/18 Ordered By: Misti John Discharge Details Anticipated Discharge Date: 10/06/18 Physicians Team ED Provider: Alphonso Manjarrez Primary Care Provider: [facility] Attending Provider: Gaurav Pelletier Status ED Status: Left Department Discharge Information Discharge Date/Time: 10/05/18 23:06
[2018-10-06 00:01] LABS: Troponin I 0.03 ng/mL (0.02-0.05)
[2018-10-06 03:16] VITALS: RESP 20
[2018-10-06 03:32] LABS: Troponin I 0.03 ng/mL (0.02-0.05)
--- NOTE | 2018-10-06 09:01 | P.HPCA ---
History of Present Illness Primary Care Physician: [facility] Chief Complaint: Chest pain History of Present Illness: 63-year-old male with history of coronary artery disease, CABG x4, hypertension , and cocaine abuse presents the emergency room for further evaluation of chest pain. Onset last evening 6:30 PM, nonexertional while watching TV. Location left anterior chest. Characterizes a squeezing pounding sensation. Quick onset gradually increase after 20 minutes. Radiation to left scapula area. No associated symptoms of nausea, vomiting, or diaphoresis. Endorses slight shortness of breath. Did not hurt to take a deep breath. No precipitating or relieving factors. Last used cocaine 1 week ago. Endorses noncompliance with blood pressure medications, often forgetting to take medications. Patient's follows with [place] [facility] in [place], [place]. Past cardiac testing 11/06/2017 Cardiac catheterization (Dr Thompson) Conclusions: 1. Noncoronary chest pain. 2. Cocaine abuse. 3. Tobacco abuse. 4. Accelerated hypertension, possibly as a cause for chest pain. 5. CABG x4 (4 of 4 grafts patent). Social history Known coronary artery disease and hypertension. Not taking statin therapy. No known diabetes. Current 1/2 pack day smoker. Endorses drinking a couple beers every other day. Last used cocaine 1 week ago. Family history Noncontributory for early onset cardiovascular disease. - Diagnosis (1) Chest pain (2) Cocaine abuse (3) Hypertension (4) Tobacco abuse (5) Coronary artery disease Review of Systems All other systems reviewed negative except as stated in HPI [facility] - History History Provided By: Patient - Medical History Medical History: Medical History (Last Reviewed 10/06/18 @ 10:09 by FRANK Arango) Coronary artery disease Acute alcoholic pancreatitis COPD (chronic obstructive pulmonary disease) Esophageal and gastric varices Heart attack Hepatitis C High blood pressure - Surgical History Surgical History: Surgical History (Last Updated 10/06/18 @ 10:09 by FRANK Arango) History of appendectomy S/P CABG x 4 - Social History I have reviewed the patient's Social History: Yes - Tobacco History Second Hand Smoke Exposure: No Tobacco Use In Past 30 Days: Yes Smoking Status: Current every day smoker Tobacco Type: Cigarettes Packs Per Day: 0.5 - Alcohol History How Often Do You Have a Drink Containing Alcohol: 4 or more times a week (2-4 beers) - Substance Use History Substance History: Active Abuse - Substance Use Type Crack/Cocaine Status: Active - Travel History History of Recent Travel: No Recent Travel in the [place] Within the Last 8 Weeks: No Recent Travel Out of the Country Within the Last 8 Weeks: No - Immunization History Tetanus Immunization: <5 Years Medications and Allergies Active Medications: Active Medications Sodium Chloride (Ns Flush) 2 ml IV.FLUSH UNSCH PRN PRN Reason: FLUSH AFTER USING IV ACCESS Sodium Chloride (Ns Flush) 2 ml IV.FLUSH BID EMBER Sodium Chloride (Ns Flush) 2 ml IV.FLUSH PRN PRN PRN Reason: FLUSH AFTER USING IV ACCESS Allergies Allergy/AdvReac Type Severity Reaction Status Date / Time hydromorphone Allergy Intermediate Hives Verified 10/05/18 19:40 metoclopramide Allergy Intermediate Hives Verified 10/05/18 19:40 Exam Vital signs: Vital Signs 10/05/18 19:36 10/05/18 20:39 10/05/18 23:34 Temperature 98 F 97.6 F Pulse Rate 66 83 62 Respiratory Rate 20 18 Blood Pressure 157/98 H 133/71 Pulse Oximetry 98 99 97 10/06/18 01:24 10/06/18 03:15 10/06/18 03:19 Temperature 98.7 F Pulse Rate 71 70 72 Respiratory Rate 20 Blood Pressure 179/81 H Pulse Oximetry 98 10/06/18 07:45 10/06/18 08:00 Temperature 98.5 F Pulse Rate 60 Respiratory Rate 20 Blood Pressure 193/98 H Pulse Oximetry 98 98 Intake & Output 10/05/18 10/06/18 10/06/18 18:59 06:59 18:59 Weight 63.503 kg Other: Weight On Admission 63.503 kg Narrative: GENERAL: Alert WN, WD, NAD, pleasant, thin, -Nepalese male HEAD: NC, AT EYES: Sclera clear, conjunctiva without injection, pupils equal and round ENT: Mucous membranes pink and moist NECK: Supple, no masses, trachea midline CV: RRR, 2/6 systolic murmur, rub, gallop, no JVD, S1-S2. Right carotid bruit may be referred sounds from murmur. RESP: Rhonchi, expiratory wheeze lungs throughout bilateral, no crackles, symmetrical chest rise, nonlabored, able to speak in full sentences ABD: Soft, NT, ND, no masses, positive bowel tones EXT: Pulses +2x4, no dependent edema MS: Normal tone x4 extremities, nontender, no obvious deformities, full range of motion NEURO: CN II through CN XII grossly intact, motor strength 5/5 PSYCH: A+O x3, pleasant affect, appropriate speech, mood, insight and judgment SKIN: Normal turgor, normal texture, no lesions, no rashes Results 10/05/18 19:45 10/05/18 19:45 Cardiac Enzymes 10/05/18 10/05/18 10/06/18 Range/Units 19:45 23:10 03:00 AST 55 H (15-37) U/L Troponin I 0.02 0.03 0.03 (0.02-0.05) ng/mL CBC 10/05/18 Range/Units 19:45 WBC 6.1 (4.0-11.0) th/mm3 RBC 4.01 L (4.50-5.90) mil/mm3 Hgb 13.4 (13.0-17.0) gm/dL Hct 38.9 L (39.0-51.0) % Plt Count 201 (150-450) th/mm3 Neut # (Auto) 2.0 (1.8-7.7) th/mm3 Lymph # (Auto) 3.1 (1.0-4.8) th/mm3 Owen # (Auto) 0.7 (0.0-0.9) th/mm3 Eos # (Auto) 0.1 (0.0-0.4) th/mm3 Baso # (Auto) 0.1 (0.0-0.2) th/mm3 Comprehensive Metabolic Panel 10/05/18 Range/Units 19:45 Sodium 140 (136-145) meq/L Potassium 4.3 (3.5-5.1) meq/L Chloride 110 H (98-107) meq/L Carbon Dioxide 17.7 L (21.0-32.0) meq/L BUN 18 (7-18) mg/dL Creatinine 1.52 H (0.60-1.30) mg/dL Calcium 7.5 L (8.5-10.1) mg/dL AST 55 H (15-37) U/L ALT 29 (12-78) U/L Alkaline Phosphatase 79 (45-117) U/L Total Protein 7.4 (6.4-8.2) g/dL Albumin 3.2 L (3.4-5.0) g/dL Intake and Output 10/05/18 10/06/18 10/06/18 22:59 06:59 14:59 Other: Weight 63.503 kg 63.503 kg Weight On Admission 63.503 kg - Imaging and Cardiology Imaging: Impressions Chest X-Ray 10/05/18 19:42 CONCLUSION: Small opacity in the left costophrenic angle could represent small pleural effusion or focal infiltrate. EKG interpretations - EKG EKG results cardiology: sinus rhythm (LVH), normal ST/T Caprini VTE Risk Assessment Caprini VTE Risk Assessment: Moderate/High Risk (score >= 2) Caprini Risk Assessment Model: Point Value = 1 Point Value = 2 Point Value = 3 Point Value = 5 Age 41-60 Minor surgery BMI > 25 kg/m2 Swollen legs Varicose veins or History of unexplained or recurrent spontaneous Oral contraceptives or hormone replacement Sepsis (< 1 month) Serious lung disease, including pneumonia (< 1 month) Abnormal pulmonary function Acute myocardial infarction Congestive heart failure (< 1 month) History of inflammatory bowel disease Medical patient at bed rest Age 61-74 Arthroscopic surgery Major open surgery (> 45 min) Laparoscopic surgery (> 45 min) Malignancy Confined to bed (> 72 hours) Immobilizing plaster cast Central venous access Age >= 75 History of VTE Family history of VTE Factor V Leiden Prothrombin [id number] Lupus anticoagulant Anticardiolipin antibodies Elevated serum homocysteine Heparin-induced thrombocytopenia Other congenital or acquired thrombophilia Stroke (< 1 month) Elective arthroplasty Hip, pelvis, or leg fracture Acute spinal cord injury (< 1 month) Prophylaxis Regimen: Total Risk Factor Score Risk Level Prophylaxis Regimen 0-1 Low Early ambulation 2 Moderate Order ONE of the following: *Sequential Compression Device (SCD) *Heparin 5000 units SQ BID 3-4 Higher Order ONE of the following medications: *Heparin 5000 units SQ TID *Enoxaparin/Lovenox 40 mg SQ daily (WT < 150 kg, CrCl > 30 mL/min) *Enoxaparin/Lovenox 30 mg SQ daily (WT < 150 kg, CrCl > 10-29 mL/min) *Enoxaparin/Lovenox 30 mg SQ BID (WT < 150 kg, CrCl > 30 mL/min) AND/OR *Sequential Compression Device (SCD) 5 or more Highest Order ONE of the following medications: *Heparin 5000 units SQ TID (Preferred with Epidurals) *Enoxaparin/Lovenox 40 mg SQ daily (WT < 150 kg, CrCl > 30 mL/min) *Enoxaparin/Lovenox 30 mg SQ daily (WT < 150 kg, CrCl > 10-29 mL/min) *Enoxaparin/Lovenox 30 mg SQ BID (WT < 150 kg, CrCl > 30 mL/min) AND *Sequential Compression Device (SCD) Assessment and Plan - Assessment (1) Chest pain Code(s): R07.9 - Chest pain, unspecified Status: Acute Plan: Admitted chest pain center. ACS ruled out 3 sets of EKGs and cardiac enzymes. Monitor on telemetry overnight. No current or further chest pain. Will be seen evaluated by Dr. Gaurav Pelletier. Recent cardiac catheterization completed November 07 revealed 4 grafts were all patent. Likely will not proceed with any further cardiac testing. This will be determined after evaluation by [facility]. Discussed with patient in length who is agreeable to plan of care and verbalized understanding. (2) Cocaine abuse Code(s): F14.10 - Cocaine abuse, uncomplicated Status: Chronic Plan: Risk of cocaine use discussed in length including but not limited to CO and or . Instructed to quit using cocaine. (3) Hypertension Code(s): I10 - Essential (primary) hypertension Status: Chronic Plan: Continue lisinopril, amlodipine, and hydrochlorothiazide. Discussed importance of tight blood pressure control. Follow-up with PCP. (4) Tobacco abuse Code(s): Z72.0 - Tobacco use Status: Chronic Plan: Strongly encouraged and stressed importance of tobacco cessation. Instructed to quit smoking. Tobacco Free [place] program information will be provided upon discharge. (5) Coronary artery disease Code(s): I25.10 - Atherosclerotic heart disease of [place] coronary artery without angina pectoris Status: Chronic Plan: Instructed to discuss with primary care provider and [facility] starting statin therapy. H&P: Quality - VTE Deep Vein Thrombosis/Pulmonary Embolism Present on Admission: No (1) Chest pain Qualifiers: Chest pain type: unspecified Qualified Code(s): R07.9 - Chest pain, unspecified (3) Hypertension Qualifiers: Hypertension type: unspecified Qualified Code(s): I10 - Essential (primary) hypertension
[2018-10-06] MEDS ORDERED: hydroCHLOROthiazide 25 MG Tablet PO SCH (09:15)
[2018-10-06] MEDS ORDERED: Lisinopril 20 MG Tablet PO SCH (09:15)
[2018-10-06] MEDS ORDERED: amLODIPine 5 MG Tablet PO SCH (09:15)
[2018-10-06 12:37] VITALS: BP 181/78; PULSE 79; TEMP 98.8; O2SAT 100
--- NOTE | 2018-10-06 16:05 | ECG ---
Date Performed: 10/06/2018 Time Performed: 04:45:50 PTAGE: 63 years EKG: Sinus rhythm POSSIBLE LEFT ATRIAL ENLARGEMENT POSSIBLE LEFT VENTRICULAR HYPERTROPHY NONSPECIFIC T-WAVE ABNORMALIT Y PROLONGED QT INTERVAL ABNORMAL ECG PREVIOUS TRACING : 10/05/2018 23.18 Since previous tracing, no significant change noted DOCTOR: Gaurav Pelletier Interpretating Date/Time 10/06/2018 16:04:57
--- NOTE | 2018-10-06 16:06 | ECG ---
Date Performed: 10/05/2018 Time Performed: 23:18:30 PTAGE: 63 years EKG: SINUS BRADYCARDIA POSSIBLE LEFT ATRIAL ENLARGEMENT POSSIBLE LEFT VENTRICULAR HYPERTROPHY NO NSPECIFIC T-WAVE ABNORMALITY PROLONGED QT INTERVAL ABNORMAL ECG PREVIOUS TRACING : 10/05/2018 19.34 Since previous tracing, no significant change noted DOCTOR: Gaurav Pelletier Interpretating Date/Time 10/06/2018 16:06:14
--- NOTE | 2018-10-06 16:32 | ECG ---
Date Performed: 10/05/2018 Time Performed: 19:34:49 PTAGE: 63 years EKG: Sinus rhythm VOLTAGE CRITERIA FOR LVH NONSPECIFIC T-WAVE ABNORMALITY ABNORMAL ECG INTERPRETATION BASED ON A DEFAU LT AGE OF 40 YEARS PREVIOUS TRACING : 07/14/2018 05.14 Compared to previous tracing, sinus arrhythmia is no longer present. R force slightly improved in the right precordial leads. DOCTOR: Gaurav Pelletier Interpretating Date/Time 10/06/2018 16:31:32
== END 2018-10-06 13:47 | disposition home or self-care (01) ==
LOC: NEPC 19:27 → NEDA 19:27 → NEPFCDU 22:57
DX: Z95.1 Presence of aortocoronary bypass graft; I25.10 Atherosclerotic heart disease of native coronary artery without angina pectoris; R07.9 Chest pain, unspecified; F17.210 Nicotine dependence, cigarettes, uncomplicated; J44.9 Chronic obstructive pulmonary disease, unspecified; I10 Essential (primary) hypertension; F14.10 Cocaine abuse, uncomplicated; Z91.14 Patient's other noncompliance with medication regimen; B19.20 Unspecified viral hepatitis C without hepatic coma; I25.2 Old myocardial infarction